=== PATIENT | female | born 1955 | race Caucasian/White ===

== ENCOUNTER → 2016-04-17 | Outpatient (CLI) | payer OTHER ==
--- NOTE | 2016-04-17 15:34 | US ---
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 EXAM MEASUREMENTS: Right Kidney: 11.8 x 5.4 x 5.3 cm cm Left Kidney: 10.5 x 6.5 x 5.0 cm cm Post Void Residual Volume: 20.3 mL TECHNOLOGIST IMPRESSION: wnl Right Kidney: wnl Left Kidney: Mid pole solid mass = 3.4 x 3.4 x 3.3 cm Bladder: wnl Bilateral Jets seen: yes Normal Post Void Residual: yes There is no evidence for hydronephrosis at this point in time. No nephrolithiasis is seen. There is a solid mass left kidney which has been the documented previously on the MRI and CT and was thought t o reflect angiomyolipoma. The urinary bladder is anechoic. Bilateral ureteral jets are seen. IMPRESSION: Solid mass left kidney.
== END | disposition home or self-care (01) ==
LOC: RADUSWWP 14:47
PROVIDERS: ATTEND Internal Medicine Nephrology
DX: N28.89 Other specified disorders of kidney and ureter (principal)
CPT/HCPCS: 76770

== ENCOUNTER → 2016-04-17 | Outpatient (CLI) | payer OTHER ==
--- NOTE | 2016-04-18 15:47 | MR ---
MR abdomen without contrast HISTORY: Adenoma left adrenal gland Multiplanar multisequence imaging through the abdomen correlated to prior MR kidney 28 September 2015, C T abdomen pelvis 04 September 2015 Suspect prior Lucy fundoplication change at the gastroesophageal junction is stable. Left adrenal l esion is stable and small, shows no enhancement. Lesion at the lower pole of the left kidney shows a stable appearance. No retroperitoneal adenopathy. Drop of signal on out of phase imaging within the l iver compatible with fatty infiltration. Small cystic focus associated with the pancreas is stable. IMPRESSION: Noncontrast exam. Stable findings. No significant interval change.
== END | disposition home or self-care (01) ==
LOC: RADMRIMAIN 15:38
PROVIDERS: ATTEND Internal Medicine Nephrology
DX: D35.02 Benign neoplasm of left adrenal gland (principal)
CPT/HCPCS: 74181; 76770

== ENCOUNTER 2016-06-26 20:28 | Emergency (ER) | payer OTHER ==
[2016-06-26 20:40] VITALS: BP 162/77; PULSE 93; RESP 18; TEMP 98
--- NOTE | 2016-06-26 21:20 | ED ---
Skin/Abscess/FB HPI - General Chief complaint: Skin/Abscess/Foreign Body Stated complaint: Nails on feet bleeding Time Seen by Provider: 06/26/16 20:56 Source: patient, RN notes reviewed Mode of arrival: ambulatory Limitations: no limitations - History of Present Illness Initial comments: 61 yo female presents to the ER with cc of bilateral toe nail avulsion. patient states she was wearing rather tight shoes today. Patient states when she did she thought she has a lot of bleeding and the nail she went to wipe in both toenails fell off. patient states that she came here because she noticed bleeding and did not know what she should do. Patient states she then came to the emergency department. Patient states that she is not currently having any other symptoms at this time.Patient denies any recent fever, chills, shortness of breath, chest pain, back pain, abdominal pain, nausea vomiting, numbness or tingling, dysuria or hematuria, constipation or diarrhea, headaches or visual changes, or any other current symptoms. - Related Data Home Medications Medication Instructions Recorded Confirmed Levothyroxine Sodium [Synthroid] 125 mcg PO DAILY 03/02/14 06/26/16 metFORMIN HCL [Glucophage] 500 mg PO BID 03/02/14 06/26/16 Insulin Detemir [Levemir] 20 unit SQ HS 04/08/16 06/26/16 Cholecalciferol [Vitamin D3] 2,000 unit PO DAILY 06/26/16 06/26/16 Cyclobenzaprine [Flexeril] 5 mg PO HS PRN 06/26/16 06/26/16 Pregabalin [Lyrica] 50 mg PO DAILY PRN 06/26/16 06/26/16 glyBURIDE [Diabeta] 5 mg PO AC-BID 06/26/16 06/26/16 traMADol HCL [Ultram] 50 mg PO HS PRN 06/26/16 06/26/16 Allergies Allergy/AdvReac Type Severity Reaction Status Date / Time No Known Allergies Allergy Verified 06/26/16 20:58 Review of Systems ROS Statement: Those systems with pertinent positive or pertinent negative responses have been documented in the HPI. ROS Other: All systems not noted in ROS Statement are negative. Past Medical History Past Medical History: COPD, Diabetes Mellitus, GERD/Reflux, Osteoarthritis (OA) , Pneumonia, Thyroid Disorder Additional Past Medical History / Comment(s): ON BP PILL BUT NOT AWARE OF HTN, "I THINK HE PUT ME ON IT FOR MY KIDNEYS. History of Any Multi-Drug Resistant Organisms: None Reported Past Surgical History: Appendectomy, Hysterectomy, Tonsillectomy Additional Past Surgical History / Comment(s): LYSIS OF ABDOMINAL ADHESIONS. CARPAL TUNNEL RELEASE., manny fundaloplasty Past Anesthesia/Blood Transfusion Reactions: No Reported Reaction Additional Past Anesthesia/Blood Transfusion Reaction / Comment(s): PT HAD SWELLING OF FACE WITH ANESTHESIA DURING HYSTERECTOMY, BUT NO PROBLEMS SINCE. HAS NEVER RECEIVED BLOOD Past Psychological History: No Psychological Hx Reported Additional Psychological History / Comment(s): STATES THIS WAS YEARS AGO, NOT CURRENT. Smoking Status: Former smoker Past Alcohol Use History: None Reported Past Drug Use History: None Reported - Past Family History Father Family Medical History: Congestive Heart Failure (CHF) Mother Family Medical History: No Reported History Additional Family Medical History / Comment(s): SUICIDE General Exam Limitations: no limitations General appearance: alert, in no apparent distress Head exam: Present: atraumatic, normocephalic, normal inspection Respiratory exam: Present: normal lung sounds bilaterally. Absent: respiratory distress, wheezes, rales, rhonchi, stridor Cardiovascular Exam: Present: regular rate, normal rhythm, normal heart sounds. Absent: systolic murmur, diastolic murmur, rubs, gallop, clicks Back exam: Present: normal inspection Neurological exam: Present: alert, oriented X3 Psychiatric exam: Present: normal affect, normal mood Skin exam: Present: warm, dry, intact, normal color, other (patient has bilateral toe nail avulsions to bilateral great toes. There is no bleeding noted.). Absent: rash Course Vital Signs 06/26/16 20:37 Temperature 98.0 F Pulse Rate 93 Respiratory 18 Rate Blood Pressure 162/77 O2 Sat by Pulse 99 Oximetry Medical Decision Making - Medical Decision Making 61-year-old female presents for bilateral toenail avulsions. We did re-insert the toes meals to help with growth. We discussed the toenails may never grow back. We did discuss follow-up with her doctor. We discussed return parameters and care. We discussed all the patient's questions. She stated that she understood the plan. All questions have been answered. She will be discharged. Disposition Clinical Impression: Avulsion of toenail of left foot, Avulsion of toenail of right foot Disposition: HOME SELF-CARE Condition: Stable Instructions: Nail Avulsion (ED) Additional Instructions: Please use medication as discussed. Please follow up with family doctor if symptoms have not improved over the next two days. Please return to the emergency room if your symptoms increase or worsen or for any other concerns. Referrals: Jose Manuel Moon MD [Primary Care Provider] - 1-2 days Time of Disposition: 21:22
== END 2016-06-26 21:36 | disposition home or self-care (01) ==
LOC: EC 20:28
DX: S91.201A Unspecified open wound of right great toe with damage to nail, initial encounter (principal); S91.202A Unspecified open wound of left great toe with damage to nail, initial encounter; E11.9 Type 2 diabetes mellitus without complications; E07.9 Disorder of thyroid, unspecified; Z87.01 Personal history of pneumonia (recurrent); Z87.891 Personal history of nicotine dependence; Z79.4 Long term (current) use of insulin; Z79.84 Long term (current) use of oral hypoglycemic drugs; Z79.899 Other long term (current) drug therapy; X58.XXXA Exposure to other specified factors, initial encounter
CPT/HCPCS: 99282

== ENCOUNTER → 2016-07-16 | Outpatient (CLI) | payer OTHER ==
--- NOTE | 2016-07-16 12:36 | XR ---
EXAMINATION TYPE: XR ankle complete RT DATE OF EXAM: 07/16/2016 COMPARISON: NONE HISTORY: Osteomyelitis twisting injury to ankle TECHNIQUE: Three-view right ankle FINDINGS: Mild diffuse soft tissue swelling is present. The ankle mortise is intact. No acute fractur es are evident. Vascular calcification is present. Plantar and Achilles tendon calcaneal heel spurs a re present. No suspicious erosions to suggest osteomyelitis are evident. IMPRESSION: 1. Mild soft tissue swelling right ankle. 2. No acute osseous abnormality evident.
--- NOTE | 2016-07-16 12:40 | XR ---
EXAMINATION TYPE: XR toes RT DATE OF EXAM: 07/16/2016 COMPARISON: NONE HISTORY: Osteomyelitis infection and great toe, pain TECHNIQUE: 3 view right great toe FINDINGS: There is narrowing of the metatarsophalangeal joint space. Mild hallux valgus deformity is present. No acute fractures evident. No suspicious cortical erosion is evident. There may be some soft tissue abnormality along the medial great toe. IMPRESSION: 1. No suspicious changes radiographically apparent for osteomyelitis. 3 phase bone scan could be per formed if clinically appropriate. 2. Degenerative joint changes first metatarsal phalangeal joint space.
== END | disposition home or self-care (01) ==
LOC: RADXRMAIN 12:07
PROVIDERS: ATTEND Family Medicine
DX: M79.89 Other specified soft tissue disorders (principal); R93.7 Abnormal findings on diagnostic imaging of other parts of musculoskeletal system

== ENCOUNTER 2016-07-22 14:49 | Inpatient (IN) | payer OTHER ==
[2016-07-22 18:45] VITALS: BMI 32.1
[2016-07-22] MEDS ORDERED: IV VANCOMYCIN PER PHARMACY 1 EACH MISC MISCELLANE PRN (19:11)
[2016-07-22] MEDS ORDERED: VANCOMYCIN 1,000 MG in SODIUM CHLORIDE 0.9% 250 ML IVPB STA (19:13)
[2016-07-22] MEDS ORDERED: traMADol 50 MG TAB PO PRN (19:45)
[2016-07-22] MEDS ORDERED: VANCOMYCIN 2,250 MG in SODIUM CHLORIDE 0.9% 500 ML IVPB ONE (20:00)
[2016-07-22 20:20] LABS: Anion Gap 8 mmol/L; Blood Urea Nitrogen 20 mg/dL (7-17); Calcium 9.1 mg/dL (8.4-10.2); Carbon Dioxide 29 mmol/L (22-30); Chloride 103 mmol/L (98-107); Glucose 251 mg/dL (74-99); Non-African American GFR(MDRD) >60 (>60 ml/min/1.73 sqM); Sodium 140 mmol/L (137-145)
[2016-07-22] MEDS: SODIUM CHLORIDE 0.9% 1,000 ML IV SCH (20:38)
[2016-07-22] MEDS: PREGABALIN 50 MG CAP PO PRN (20:38)
[2016-07-22] MEDS: INSULIN DETEMIR 100 UNIT/ML 10 ML VIAL SQ SCH (20:43)
[2016-07-22 20:44] LABS: Glucose,Whole Blood 222 mg/dL (75-99)
[2016-07-22 20:59] LABS: INR 1.9 (<1.1); Prothrombin Time 18.1 sec (9.0-12.0)
[2016-07-22] MEDS ORDERED: CYCLOBENZAPRINE 5 MG TAB PO PRN (21:00)
[2016-07-23] MEDS: ACETAMINOPHEN TAB 500 MG TAB PO PRN ×4 (00:02→22:49)
[2016-07-23] MEDS: LEVOTHYROXINE 125 MCG TAB PO SCH (05:18)
[2016-07-23] MEDS: glipiZIDE 5 MG TAB PO SCH ×2 (07:32→17:50)
[2016-07-23] MEDS: VANCOMYCIN 1,500 MG in SODIUM CHLORIDE 0.9% 250 ML IVPB SCH ×2 (07:32→19:14)
[2016-07-23] MEDS: metFORMIN 500 MG TAB PO SCH ×2 (07:32→17:50)
[2016-07-23 07:36] LABS: Glucose,Whole Blood 150 mg/dL (75-99)
[2016-07-23] MEDS: SODIUM CHLORIDE 0.9% 1,000 ML IV SCH ×2 (09:47→14:54)
[2016-07-23 11:05] LABS: Glucose,Whole Blood 147 mg/dL (75-99)
[2016-07-23] MEDS: CHOLECALCIFEROL 1,000 UNIT TAB PO SCH (11:45)
--- NOTE | 2016-07-23 13:36 | NM ---
EXAMINATION TYPE: NM bone 3 phase DATE OF EXAM: 07/23/2016 COMPARISON: NONE HISTORY: Open sore on the right great toe. Triple phase bone scintigraphy was performed following the injection of27.5 mCi Tc 99m MDP. Immediat e images and 5 hours post injection images acquired. FINDINGS: There is increased flow to the right foot. Pool images demonstrate increased uptake in the distal first metatarsal and great toe. Delayed static images show diffuse increased uptake in the rig ht forefoot, distal first metatarsal and great toe. There is a lesser degree of uptake in the forefoo t on the left. IMPRESSION: I COULD NOT EXCLUDE OSTEOMYELITIS OF THE LEFT FIRST DISTAL METATARSAL AND GREAT TOE.
[2016-07-23 15:52] LABS: Basophils # (A) 0.1 k/uL (0-0.2); Basophils % (A) 1 %; CH 29.3; Eosinophils # (A) 0.2 k/uL (0-0.7); Eosinophils % (A) 3 %; HCT 35.9 % (34.0-46.0); HGB 11.8 gm/dL (11.4-16.0); Luc # (Auto) 0.15; Luc % (Auto) 2; Lymphocytes % (A) 31 %; MCH 29.3 pg (25.0-35.0); MCHC 32.8 g/dL (31.0-37.0); MCV 89.3 fL (80.0-100.0); Mean Platelet Volume 7.8; Monocytes # (A) 0.3 k/uL (0-1.0); Monocytes % (A) 4 %; Neutrophils # (A) 3.7 k/uL (1.3-7.7); Neutrophils % (A) 58 %; RBC 4.03 m/uL (3.80-5.40); RDW 13.3 % (11.5-15.5); WBC 6.3 k/uL (3.8-10.6); WBC (Perox) 6.49
--- NOTE | 2016-07-23 15:55 | P.PN ---
Subjective 61-year-old female being seen and examined. Currently sitting up in bed. Patient states there is decreased swelling in the left foot compared to omission. Patient continues to report having discomfort and pain in the left foot great toe. Patient did have a bone scan done on July 23 could not exclude osteomyelitis of the left first distal metatarsal and great toe. Objective - Vital Signs Vital signs: Vital Signs Temp 98.3 F 07/23/16 07:00 Pulse 80 07/23/16 07:42 Resp 17 07/23/16 07:42 BP 129/67 07/23/16 07:00 Pulse Ox 95 07/23/16 07:00 Intake & Output 07/22/16 07/23/16 07/23/16 18:59 06:59 18:59 Intake Total 750 1315 Balance 750 1315 Weight 87.4 kg Intake: Intake, IV Titration 750 775 Amount Sodium Chloride 0.9% 1, 750 525 000 ml @ 75 mls/hr IV . [id number] [facility] Rx#:[id number] Vancomycin 1,500 mg In 250 Sodium Chloride 0.9% 250 ml @ 125 mls/hr IVPB Q12H [facility] Rx#:[id number] Oral 540 Other: Voiding Method Toilet Toilet # Voids 2 2 - Exam Physical exam 61-year-old female sitting up in bed pleasant cooperative oriented 3 Lungs essentially clear adequate air movement on room air Heart S1-S2 audible and regular denying chest pain no murmur Abdomen soft nontender reports no nausea vomiting Extremities the left great toe callus area noted trace pedal edema bilaterally denies calf tenderness - Labs CBC & Chem 7: 07/22/16 19:47 Labs: Abnormal Lab Results - Last 24 Hours (Table) 07/22/16 07/22/16 07/22/16 Range/Units 19:47 20:31 20:36 PT 18.1 H (9.0-12.0) sec BUN 20 H (7-17) mg/dL Glucose 251 H (74-99) mg/dL POC Glucose (mg/dL) 222 H (75-99) mg/dL 07/23/16 07/23/16 Range/Units 07:32 11:02 PT (9.0-12.0) sec BUN (7-17) mg/dL Glucose (74-99) mg/dL POC Glucose (mg/dL) 150 H 147 H (75-99) mg/dL Assessment and Plan Plan: Impression Pain left distal metatarsal and left great toe present on admission osteomyelitis could not be excluded by a bone scan Obesity BMI 32 Hypothyroid on supplements Type 2 diabetes insulin requiring Vitamin D deficiency Plan Await further recommendations by infectious disease ending Resume home meds as appropriate Monitor blood sugars address as indicated Check a hemoglobin A1c DVT and GI prophylaxis Further recommendations pending The above dictated assessment and findings were discussed with dr castillo . Impression and the plan of care have been dictated as directed. [facility] nurse practitioner acting as a scribe for dr castillo
[2016-07-23 17:17] LABS: Erythrocyte Sedimentation Rate 16 mm/hr (0-20)
[2016-07-23 17:37] LABS: Glucose,Whole Blood 168 mg/dL (75-99)
[2016-07-23] MEDS: WARFARIN 7.5 MG TAB PO SCH (17:50)
[2016-07-23 21:15] LABS: Glucose,Whole Blood 130 mg/dL (75-99)
[2016-07-23] MEDS: INSULIN DETEMIR 100 UNIT/ML 10 ML VIAL SQ SCH (22:12)
[2016-07-23] MEDS: PREGABALIN 50 MG CAP PO PRN (22:50)
[2016-07-23] MEDS: traMADol 50 MG TAB PO PRN (23:23)
[2016-07-24] MEDS: LEVOTHYROXINE 125 MCG TAB PO SCH (05:22)
[2016-07-24 08:08] LABS: Glucose,Whole Blood 104 mg/dL (75-99)
[2016-07-24] MEDS: VANCOMYCIN 1,500 MG in SODIUM CHLORIDE 0.9% 250 ML IVPB SCH (08:42)
[2016-07-24] MEDS: metFORMIN 500 MG TAB PO SCH ×2 (08:42→17:03)
[2016-07-24] MEDS: glipiZIDE 5 MG TAB PO SCH ×2 (08:43→17:02)
[2016-07-24] MEDS: ACETAMINOPHEN TAB 500 MG TAB PO PRN (08:48)
[2016-07-24 08:57] LABS: INR 1.3 (<1.1); Prothrombin Time 12.4 sec (9.0-12.0)
--- NOTE | 2016-07-24 09:00 | HP ---
DATE OF ADMISSION: 07/22/2016 SUBJECTIVE: 61-year-old white female with osteomyelitis of the great toe failing outpatient treatment with Levaquin, at which time she was admitted to the hospital due to worsening redness going up to her foot and ankle and toes spreading all the way up to her ankle. She was admitted. Bone scan has been ordered. IV antibiotics ordered including vancomycin. She has a history of deep venous thrombosis. She has a history of diabetes mellitus, hypertension, hypothyroidism. MEDICATIONS: Please see list. SURGERIES: See list. REVIEW OF SYSTEMS: 14 point review of systems negative except for worsening toe swelling and redness as mentioned above up to the ankle. Fourteen-point review of systems otherwise negative. ENDOCRINE: BMI is over 40. LABS: White count 6.3 sugars in the mid 100s. Sodium 140, potassium 4.0, creatinine 0.6. Calcium 9.1. CARDIOVASCULAR: S1, S2. LUNGS: Transmitted upper airway sounds. GI: Soft. HEMATOLOGIC: Negative Homans. PSYCHIATRIC: Fair mood and affect. NEUROLOGIC: Alert and oriented x3. Ophthalmologic: Pupils equal, round and reactive to light and accommodation. ASSESSMENT: 1. Osteomyelitis of the great toe. 2. Diabetes mellitus. 3. Hypertension. 4. Obesity. 5. Generalized debility. Continue with IV vancomycin, awaiting infectious disease consultation. Await bone scan recommendations. Continue on the vancomycin in the meantime, Dr. Staley's note is not appreciated in the chart at this time. We will continue his antibiotics until his recommendations are given.
[2016-07-24 09:09] LABS: ALT 32 U/L (9-52); AST 16 U/L (14-36); Alkaline Phosphatase 78 U/L (38-126); Anion Gap 8 mmol/L; Blood Urea Nitrogen 18 mg/dL (7-17); Calcium 9.3 mg/dL (8.4-10.2); Carbon Dioxide 28 mmol/L (22-30); Chloride 105 mmol/L (98-107); Glucose 105 mg/dL (74-99); Non-African American GFR(MDRD) >60 (>60 ml/min/1.73 sqM); Potassium 4.3 mmol/L (3.5-5.1); Sodium 141 mmol/L (137-145); Total Bilirubin 0.5 mg/dL (0.2-1.3); Total Protein 7.2 g/dL (6.3-8.2)
--- NOTE | 2016-07-24 09:31 | CONS ---
DATE OF CONSULTATION: 07/23/2016 Reason for consultation is bilateral big toe wound and question of osteomyelitis. HISTORY OF PRESENT ILLNESS: The patient is a 61 female who recently have some tight fitting shoes and when she said that she took those shoes and socks away, both the big toe nails came off. Patient says she did have some problem with the bleeding that she tried to control with some compression and dressing. Subsequently, the patient was evaluated in the ER for the same reason of 06/26/2016. However, she have some x-rays of the foot and ankle area but no significant specific treatment. Subsequently, the patient has been evaluated by her primary care physician in the outpatient setting about a week ago and the patient has been given oral antibiotic but the patient is not sure about the name. She was evaluated in the office yesterday with no significant improvement and the patient has been admitted to the hospital. A bone scan was requested. She was started on vancomycin. I was asked to see the patient for further recommendation regarding antibiotic therapy. Patient has been complaining of some dull pain, especially in the right big toe area. The patient also has a callus on the right foot plantar aspect which the patient took some of the callus off lead to small ulceration. However, the patient denies significant drainage from that site. The patient denies any high-grade fever, rigors or denies any chest pain, shortness of breath, no cough, no abdominal pain, and no diarrhea. REVIEW OF SYSTEMS: CONSTITUTIONAL: Positive for weakness, but no high-grade fever. EYES: No complaint. ENT: No complaint. RESPIRATORY: No complaint. CARDIOVASCULAR: No complaint. GENITOURINARY: No complaint. GASTROINTESTINAL: No complaint. MUSCULOSKELETAL: As per HPI. INTEGUMENTARY: As per HPI. PSYCHOLOGICAL: No complaint. ENDOCRINE: No complaint. NEUROLOGIC: No complaint. PAST MEDICAL HISTORY: Significant for diabetes mellitus, gastroesophageal reflux disease, osteoarthritis in the bone, COPD, hypothyroidism. PAST SURGICAL HISTORY: Appendectomy, hysterectomy, tonsillectomy. SOCIAL HISTORY: Remote history of smoking. No drinking or drug use. FAMILY HISTORY: Father with history of congestive heart failure. Mother of old age. ALLERGIES: No known drug allergies. Medications currently include the patient is on Tylenol, vitamin D3, Flexeril, Glucotrol, Levemir, Synthroid, Glucophage, Lyrica, Ultram, vancomycin and Coumadin. On examination, blood pressure is 177/81 with a pulse of 73, temperature of 98.5, she is 96% on room air. General description is a middle-age female lying in bed, in no distress. No tachypnea or accessory muscle of respiration use. HEENT examination shows no pallor or scleral icterus. Oral mucous membranes dry. NECK: Trachea central. No thyromegaly. LUNGS: Unlabored breathing. Clear to auscultation anteriorly. No wheeze or crackle. HEART: S1, S2. Regular rate and rhythm. ABDOMEN: Soft, no tenderness, no guarding or rigidity. EXTREMITIES: No edema of the feet. Examination of the bilateral feet, the patient's right big toe is slightly more swollen than the left one with the callus on the right foot plantar aspect. She did have a wound on the top of the left big toe as a result of the nail has been taken off, but no significant swelling or drainage was noticed. NEUROLOGICAL: The patient is awake, alert, oriented x3. Mood and affect is normal. LABS: BUN of 20 with a creatinine 0.66, electrolyte has been normal. Bone scan reported positive. The bone scan was personally reviewed with Dr. Garza which did show increased uptake in the right big toe area. DIAGNOSTIC IMPRESSION AND PLAN: Patient with right big toe cellulitis and a question of possible osteomyelitis. The patient's right big toe is more swollen compared to the left one with a finding on the bone scan result of the cellulitis cannot be entirely excluded as in view of the short history. Underlying osteomyelitis not likely but not entirely excluded, more likely from gram-positive skin zarina. Unfortunately, we do not have any culture to determine physiologic agent and the patient has been started on antibiotics without getting any blood cultures. PLAN: 1. Will obtain a CBC and sed rate. 2. Will continue the patient on vancomycin, pharmacy to dose . 3. If the sed rate is elevated, the patient will likely need to get a PICC line for outpatient IV antibiotic therapy. Thank you for this consultation. Will follow this patient along with you. MARIE
[2016-07-24 11:27] LABS: Glucose,Whole Blood 177 mg/dL (75-99)
[2016-07-24] MEDS: SODIUM CHLORIDE 0.9% 1,000 ML IV SCH (12:42)
[2016-07-24] MEDS: CHOLECALCIFEROL 1,000 UNIT TAB PO SCH (12:44)
--- NOTE | 2016-07-24 13:47 | P.PN ---
Subjective 61-year-old female being seen and examined. Patient continues to report having pain involving the right great toe. Patient states that has not improved. Patients being followed by infectious disease.who are recommending a evaluate by [facility] for possible debridement with wound culture to be obtained involving the right great toe. Patient has remained afebrile. Patient complains of having pain in the right big toe area. Callus on the right plantar aspect of the foot. Is no drainage. The areas dry. Patient was seen in Dr. Castillo's office prior to admission and was started on oral antibiotic but the patient is not sure the name and stated did not seem to help. Patient has been started on IV vancomycin this been no significant improvement Objective - Vital Signs Vital signs: Vital Signs Temp 98.3 F 07/24/16 07:00 Pulse 80 07/24/16 08:00 Resp 18 07/24/16 08:00 BP 146/82 07/24/16 07:00 Pulse Ox 96 07/24/16 07:00 Intake & Output 07/23/16 07/24/16 07/24/16 18:59 06:59 18:59 Intake Total 1315 750 Balance 1315 750 Intake: Intake, IV Titration 775 750 Amount Sodium Chloride 0.9% 1, 525 750 000 ml @ 75 mls/hr IV . [id number] [facility] Rx#:[id number] Vancomycin 1,500 mg In 250 Sodium Chloride 0.9% 250 ml @ 125 mls/hr IVPB Q12H [facility] Rx#:[id number] Oral 540 Other: Voiding Method Toilet Toilet Toilet # Voids 2 2 2 - Exam Physical exam 61-year-old female sitting up in bed pleasant cooperative oriented 3 continues to report having pain involving the right foot Lungs essentially clear adequate air movement on room air no cough noted Heart S1-S2 audible and regular denying chest pain no murmur Abdomen soft nontender reports no nausea vomiting reports no frequent stooling no difficulty in urinating Extremities the right great toe swollen callus area noted warm to the touch trace pedal edema bilaterally denies calf tenderness - Labs CBC & Chem 7: 07/23/16 15:26 07/24/16 08:16 Labs: Abnormal Lab Results - Last 24 Hours (Table) 07/23/16 07/23/16 07/24/16 Range/Units 17:30 21:10 07:49 PT (9.0-12.0) sec BUN (7-17) mg/dL Glucose (74-99) mg/dL POC Glucose (mg/dL) 168 H 130 H 104 H (75-99) mg/dL Hemoglobin A1c (4.2-6.1) % 07/24/16 07/24/16 07/24/16 Range/Units 08:16 08:16 08:16 PT 12.4 H (9.0-12.0) sec BUN 18 H (7-17) mg/dL Glucose 105 H (74-99) mg/dL POC Glucose (mg/dL) (75-99) mg/dL Hemoglobin A1c 8.0 H (4.2-6.1) % 07/24/16 Range/Units 11:19 PT (9.0-12.0) sec BUN (7-17) mg/dL Glucose (74-99) mg/dL POC Glucose (mg/dL) 177 H (75-99) mg/dL Hemoglobin A1c (4.2-6.1) % Assessment and Plan Plan: Impression Pain right first present on admission distal metatarsal and right great toe osteomyelitis could not be excluded by a bone scan Obesity BMI 32 Hypothyroid on supplements Type 2 diabetes insulin requiring Vitamin D deficiency Present on admission right big toe cellulitis question of possible osteomyelitis not ruled out Type 2 diabetes insulin requiring hemoglobin A1c 8 uncontrolled Plan Await further recommendations by infectious disease ending Resume home meds as appropriate Monitor blood sugars address as indicated DVT and GI prophylaxis Further recommendations pending The above dictated assessment and findings were discussed with dr castillo . Impression and the plan of care have been dictated as directed. [facility] nurse practitioner acting as a scribe for dr castillo
[2016-07-24] MEDS: WARFARIN 7.5 MG TAB PO SCH (17:02)
[2016-07-24 17:49] LABS: Glucose,Whole Blood 110 mg/dL (75-99)
[2016-07-24 21:02] LABS: Glucose,Whole Blood 184 mg/dL (75-99)
[2016-07-24] MEDS: traMADol 50 MG TAB PO PRN (21:23)
[2016-07-24] MEDS: PREGABALIN 50 MG CAP PO PRN (21:23)
[2016-07-24] MEDS: INSULIN DETEMIR 100 UNIT/ML 10 ML VIAL SQ SCH (21:26)
[2016-07-25] MEDS ORDERED: VANCOMYCIN TROUGH DUE 1 EACH MISC MISCELLANE ONE (06:00)
[2016-07-25] MEDS: SODIUM CHLORIDE 0.9% 1,000 ML IV SCH (06:13)
[2016-07-25] MEDS: LEVOTHYROXINE 125 MCG TAB PO SCH (06:14)
[2016-07-25] MEDS: metFORMIN 500 MG TAB PO SCH (07:48)
[2016-07-25] MEDS: glipiZIDE 5 MG TAB PO SCH (07:48)
[2016-07-25 07:56] VITALS: BP 121/67; RESP 16; TEMP 98.6
[2016-07-25 08:00] VITALS: PULSE 80
[2016-07-25 08:03] LABS: Glucose,Whole Blood 84 mg/dL (75-99)
[2016-07-25 08:14] LABS: INR 1.4 (<1.1)
[2016-07-25 08:15] LABS: Prothrombin Time 13.3 sec (9.0-12.0)
[2016-07-25 08:20] LABS: ALT 29 U/L (9-52); AST 17 U/L (14-36); Alkaline Phosphatase 77 U/L (38-126); Anion Gap 10 mmol/L; Blood Urea Nitrogen 24 mg/dL (7-17); Calcium 9.5 mg/dL (8.4-10.2); Carbon Dioxide 29 mmol/L (22-30); Chloride 102 mmol/L (98-107); Glucose 87 mg/dL (74-99); Non-African American GFR(MDRD) >60 (>60 ml/min/1.73 sqM); Potassium 4.5 mmol/L (3.5-5.1); Sodium 141 mmol/L (137-145); Total Bilirubin 0.5 mg/dL (0.2-1.3); Total Protein 7.2 g/dL (6.3-8.2)
--- NOTE | 2016-07-25 08:56 | P.DS ---
Providers Date of admission: 07/22/16 15:59 Expected date of discharge: 07/25/16 Attending physician: Jose Manuel Castillo Consults: 07/22/16 19:05 Consult Physician Routine Consulting Provider: Kitty Staley Consult Reason/Comments: Osteomyelitis Do you want consulting provider notified?: Already Contacted 07/24/16 13:45 Consult Physician Routine Consulting Provider: Nacho Benton Consult Reason/Comments: deep wound culture Do you want consulting provider notified?: Already Contacted [facility] care [facility]: [facility] Course: 61-year-old female who was a direct admit from Dr. Castillo's office or patient was being seen for increase pain and redness in the right great toe radiating up to the right ankle. Patient had been seen in the office prior had been started on Levaquin with no noted improvement in the symptoms. Patient was recommended to be admitted to the hospital and be treated for failed outpatient treatment for possible osteomyelitis involving the right great toe. Patient was seen by infectious disease. IV antibiotics were initiated. A bone scan was obtained. Could not exclude osteomyelitis of the right first digit distal tarsal right great toe. Patient gives a history of recently wearing some tight fitting shoes. Patient stated that when she took tissue off and pulled the sock away the big toenail came off. Patient stated there was some bleeding she did control with some dressing. Subsequently the patient came into the emergency room for the above- mentioned symptoms on June 26. Patient had some x-rays done at that time and there was no significant treatment at that time. Patient stated that she been followed by her primary care doctor in the outpatient setting seen last about a week ago started on oral antibiotics Levaquin. Patient reevaluated in the office on the day of admission with no significant improvement and patient was recommended to be admitted. Patient complained of dullness an old right big toe. Patient had a callus on the right foot plantar aspect which the patient stated she took off the callus which led to a small ulceration. There was no significant drainage. There was no fever chills. No cough. There was no open area on the right foot. Infectious disease felt the patient could be discharged on an oral antibiotic and would follow patient in the outpatient setting subsequent the patient was discharged home Impression Pain right first present on admission distal metatarsal and right great toe osteomyelitis could not be excluded by a bone scan Obesity BMI 32 Hypothyroid on supplements Vitamin D deficiency Present on admission right big toe cellulitis question of possible osteomyelitis not ruled out Type 2 diabetes insulin requiring hemoglobin A1c 8 uncontrolled History of wearing tightfitting shoes 2 weeks prior resulting in right great toe pain The above dictated assessment and findings were discussed with dr castillo . Impression and the plan of care have been dictated as directed. [facility] nurse practitioner acting as a scribe for dr castillo Plan - Discharge Summary New Discharge Prescriptions: New Cephalexin [Keflex] 500 mg PO Q6HR #56 cap Continue metFORMIN HCL [Glucophage] 500 mg PO BID Levothyroxine Sodium [Synthroid] 125 mcg PO DAILY Insulin Detemir [Levemir] 20 unit SQ HS glyBURIDE [Diabeta] 5 mg PO AC-BID Pregabalin [Lyrica] 50 mg PO HS PRN PRN Reason: Pain Cyclobenzaprine [Flexeril] 5 mg PO HS PRN PRN Reason: Pain traMADol HCL [Ultram] 50 mg PO HS PRN PRN Reason: Pain Cholecalciferol [Vitamin D3] 4,000 unit PO DAILY Warfarin [Coumadin] 7.5 mg PO HS Acetaminophen [Tylenol] 500 mg PO Q6HR PRN PRN Reason: Pain Discontinued Amoxic-Pot Clav 875-125Mg [Augmentin 875-125] 1 tab PO Q12HR Discharge Medication List Levothyroxine Sodium [Synthroid] 125 mcg PO DAILY 03/02/14 [History] metFORMIN HCL [Glucophage] 500 mg PO BID 03/02/14 [History] Insulin Detemir [Levemir] 20 unit SQ HS 04/08/16 [History] Cholecalciferol [Vitamin D3] 4,000 unit PO DAILY 06/26/16 [History] Cyclobenzaprine [Flexeril] 5 mg PO HS PRN 06/26/16 [History] Pregabalin [Lyrica] 50 mg PO HS PRN 06/26/16 [History] glyBURIDE [Diabeta] 5 mg PO AC-BID 06/26/16 [History] traMADol HCL [Ultram] 50 mg PO HS PRN 06/26/16 [History] Acetaminophen [Tylenol] 500 mg PO Q6HR PRN 07/22/16 [History] Warfarin [Coumadin] 7.5 mg PO HS 07/22/16 [History] Cephalexin [Keflex] 500 mg PO Q6HR #56 cap 07/25/16 [Rx] Follow up Appointment(s)/Referral(s): Kitty Staley MD [STAFF PHYSICIAN] - 07/28/16 Jose Manuel Castillo MD [Primary Care Provider] - 07/29/16 Discharge Disposition: HOME SELF-CARE
--- NOTE | 2016-07-25 11:13 | PN ---
DATE OF SERVICE: 07/24/2016 Reason for followup is right big toe wound, a question of osteomyelitis. INTERVAL HISTORY: The patient is afebrile. She has been breathing comfortably. Patient did mention that overall pain and swelling to the right big toe remain to be the same. She did have a callus on the plantar aspect and no significant drainage from that site. Patient denies significant chest pain, shortness of breath, cough, no abdominal pain or diarrhea. On examination, blood pressure 146/82 with a pulse of 80, temperature 98.2. She is 95% on room air. General description is a middle-age female lying in bed in no distress. RESPIRATORY SYSTEM: Unlabored breathing. Clear to auscultation anteriorly. HEART: S1 and S2, regular rate and rhythm. ABDOMEN: Soft, no tenderness. Right big toe slightly swollen compared to left. She did have plantar callus. The ulcer has dried out. No significant drainage. LABS: BUN of 18 with a creatinine 0.67. Sed rate was only 16. DIAGNOSTIC IMPRESSION AND PLAN: Patient with bilateral big toe nail avulsion also with swelling of the right big toe and redness and failing outpatient antibiotic therapy. bone scan positive for an osteomyelitis. The patient did mention no significant improvement with the vancomycin. At this time we do not have any microbiological diagnosis. Will go ahead and hold on the vancomycin therapy. At this point, we will request obtaining a foot and ankle surgery evaluation for debridement of that callus and deep cultures. Also, we will obtain blood cultures tomorrow. Depending upon these cultures to determine discharge antibiotics. Plan of care discussed with the nurse practitioner for the primary team. MARIE
[2016-07-25] MEDS: ACETAMINOPHEN TAB 500 MG TAB PO PRN (12:02)
[2016-07-25] MEDS: CHOLECALCIFEROL 1,000 UNIT TAB PO SCH (12:02)
[2016-07-25 12:23] LABS: C Reactive Protein 11.4 mg/L (<10.0)
--- NOTE | 2016-07-25 16:54 | PN ---
DATE OF SERVICE: 07/25/2016 REASON FOR FOLLOWUP: Right big toe wound with question of cellulitis. INTERVAL HISTORY: The patient is afebrile. The patient did mention that she noticed more drainage from her right big toe area that has been ( ) by the RN. Patient denies any worsening pain to the area. No significant chest pain or cough. Off and on abdominal pain. On examination, blood pressure is 121/67 with a pulse of 80, temperature 98.6. She is 96% on room air. General description is a middle-aged female up in the bed in no distress. RESPIRATORY SYSTEM: Unlabored breathing. Clear to auscultation anteriorly. HEART: S1, S2. Regular rate and rhythm. ABDOMEN: Soft. No tenderness. Right foot is currently dressed up. No obvious drainage on the dressing. LABS: BUN of 24 with a creatinine 0.76. DIAGNOSTIC IMPRESSION AND PLAN: Patient with right big toe swelling with a question of possible underlying cellulitis or osteomyelitis. We did ask for orthopedic evaluation for debridement of the infected callus and deep culture; however, they ( ). Patient will be sent on oral Keflex with outpatient followup. Will follow the culture that was taken today. Continue supportive care.
== END 2016-07-25 13:50 | disposition home or self-care (01) | DRG 638 ==
LOC: 5MS5E 15:59
PROVIDERS: ADMIT Family Medicine; ATTEND Family Medicine
DX: E11.69 Type 2 diabetes mellitus with other specified complication (principal); M86.9 Osteomyelitis, unspecified; E11.621 Type 2 diabetes mellitus with foot ulcer; E11.65 Type 2 diabetes mellitus with hyperglycemia; I10 Essential (primary) hypertension; E03.9 Hypothyroidism, unspecified; E55.9 Vitamin D deficiency, unspecified; E66.9 Obesity, unspecified; J44.9 Chronic obstructive pulmonary disease, unspecified; K21.9 Gastro-esophageal reflux disease without esophagitis; L03.039 Cellulitis of unspecified toe; L97.519 Non-pressure chronic ulcer of other part of right foot with unspecified severity; Z68.32 Body mass index [BMI] 32.0-32.9, adult; Z79.4 Long term (current) use of insulin; Z82.49 Family history of ischemic heart disease and other diseases of the circulatory system; Z86.718 Personal history of other venous thrombosis and embolism; Z87.891 Personal history of nicotine dependence; Z79.899 Other long term (current) drug therapy
CPT/HCPCS: 78315; 80048; 80053; 80202; 83036; 85025; 85610; 85652; 86140; 87070; 87077; 87186; 87205

== ENCOUNTER → 2016-09-26 | Outpatient (CLI) | payer OTHER ==
--- NOTE | 2016-09-26 23:30 | MR ---
EXAMINATION TYPE: MR shoulder LT wo con DATE OF EXAM: 09/26/2016 COMPARISON: NONE HISTORY: Previous MRI on PACS Pain Left Shoulder with Limited ROM TECHNIQUE: Multiplanar, multisequence imaging of the left shoulder is performed without contrast. FINDINGS: The biceps tendon is intact. Subscapularis tendon is intact. Glenoid bev are within normal limits. There is increased signal in the supraspinatus tendon over the humeral head and at the greater tubero sity of the humerus. There is no retraction of the supraspinatus muscle. There is mild spurring at th e AC joint. There is mild subacromial impingement. There is no evidence of a fracture. IMPRESSION: There is evidence of full-thickness tear of the supraspinatus tendon. No retraction. Mild subacromial impingement. 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
== END | disposition home or self-care (01) ==
LOC: RADMRIMAIN 20:48
PROVIDERS: ATTEND Orthopaedic Surgery
DX: M75.122 Complete rotator cuff tear or rupture of left shoulder, not specified as traumatic (principal); M19.012 Primary osteoarthritis, left shoulder

== ENCOUNTER → 2016-11-03 | Outpatient (CLI) | payer OTHER ==
--- NOTE | 2016-11-03 16:39 | XR ---
EXAMINATION TYPE: XR bone survey complete DATE OF EXAM: 11/03/2016 COMPARISON: CT abdomen and pelvis September 04, 2015. Kidney MRI September 28, 2015 HISTORY: Hypothyroidism, monoclonal gammopathy, lower extremity DVT, and benign neoplasm left adrenal gland per order. TECHNIQUE: Frontal and lateral views of entire spine. 2 views of skull. Single view of bilateral femu rs and humeri, and single AP view pelvis are all acquired. Bony calvarium : 2 views of the bony calvarium demonstrate no definitive suspicious focal lytic lesio n. Spine: Two views of the cervical, thoracic and lumbar spines are submitted. Moderate spurring and di sc space narrowing C5-C6 and C6-C7 levels in cervical spine. No definitive focal lytic lesion is iden tified. There is moderate spurring and disc space narrowing in the lower thoracic spine. Straightenin g of thoracic spine as seen on lateral view. There are 5 lumbar-type vertebra. There is grade 1 anter olisthesis of L3 on L4 with mild to moderate disc space narrowing at this level. CXR: Single frontal view chest x-ray shows lungs to appear clear. Cholecystectomy clips are noted. No lytic or expansile rib lesion is clearly seen. PELVIS: Single view of the pelvis demonstrates. No definitive focal lytic lesion. Some lucency from overlying bowel gas is noted. UPPER EXTREMITIES: Two views of the upper extremities. No definitive focal lytic lesion is identified . LOWER EXTREMITIES: 2 views of the lower extremities. No definitive focal lytic lesion is seen. IMPRESSION: No suspicious focal lytic lesions clearly identified.
== END ==
LOC: RADXRMAIN 16:00
PROVIDERS: ATTEND Internal Medicine Hematology & Oncology
DX: I82.5Z9 Chronic embolism and thrombosis of unspecified deep veins of unspecified distal lower extremity (principal); D35.02 Benign neoplasm of left adrenal gland; D47.2 Monoclonal gammopathy; E03.9 Hypothyroidism, unspecified
CPT/HCPCS: 77075

== ENCOUNTER → 2016-11-12 | Outpatient (CLI) | payer OTHER ==
--- NOTE | 2016-11-12 15:35 | US ---
EXAMINATION TYPE: US venous doppler duplex LE BI DATE OF EXAM: 11/12/2016 3:10 PM COMPARISON: Left lower extremity venous ultrasound May 24, 2015 CLINICAL HISTORY: I82.5Z9 DVT in lower ext. Right popliteal fossa pain; prior left leg DVT and is ta nolvia Coumadin SIDE PERFORMED: Bilateral TECHNIQUE: The lower extremity deep venous system is examined utilizing real time linear array sonog aubree with graded compression, doppler sonography and color-flow sonography. VESSELS IMAGED: Common Femoral Vein Deep Femoral Vein Greater Saphenous Vein * Femoral Vein Popliteal Vein Small Saphenous Vein * Proximal Calf Veins (* superficial vessels) Right Leg: Negative for DVT Left Leg: Echogenic valves are noted in one of 2 left upper calf veins, but veins compress normally and left leg is otherwise negative for DVT. Grayscale, color doppler, spectral doppler imaging performed of the deep veins of the lower extremit ies. There is normal flow, compressibility, vascular waveforms. IMPRESSION: No evidence for acute DVT in either lower extremity.
== END | disposition home or self-care (01) ==
LOC: RADUSWWP 14:31
PROVIDERS: ATTEND Internal Medicine Hematology & Oncology
DX: I82.5Z9 Chronic embolism and thrombosis of unspecified deep veins of unspecified distal lower extremity (principal)
CPT/HCPCS: 93970

== ENCOUNTER → 2016-12-03 | Outpatient (CLI) | payer OTHER ==
--- NOTE | 2016-12-03 15:43 | WWHP ---
[facility] - HISTORY AND PHYSICAL DATE OF DICTATION: 12/03/2016 CHIEF COMPLAINT: The patient is here for her routine gynecologic exam and mammogram. HPI: This is a 61-year-old G3, P3 0-0-2 with an LMP of 2006. She is status post vaginal hysterectomy for benign reasons. She is complaining of some vulvar pruritus for about 3 weeks and has noticed slight occasional wetness in the area. She has also been experiencing some occasional left breast tenderness and this seems worse when her cat jumps on her chest. PAST MEDICAL HISTORY: Type 2 diabetes, hypothyroidism, diabetic foot neuropathy, kidney problems, history of DVT in 2015. MEDICATIONS: 1. Ultram 50 mg daily. 2. Vitamin D 2000 units 2 capsules daily. 3. Flexeril 5 mg p.r.n. 4. Levemir 25 units q.h.s. 5. Magnesium supplement daily. 6. Tylenol p.r.n. 7. Metformin 500 mg b.i.d. 8. Lyrica 50 mg daily. 9. Levothyroxine 125 mcg daily. 10.Glyburide 5 mg 2 b.i.d. ALLERGIES: No known drug allergies. PAST SURGICAL HISTORY: Appendectomy, hiatal hernia, left salpingectomy as a teenager, vaginal hysterectomy with possible right salpingectomy 2006, lysis of adhesions, and bilateral carpal tunnel syndrome. Colonoscopy was done in 2014. 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 She thinks she may have also had genital herpes in the past, but has not had any recent outbreaks. She is status post vaginal hysterectomy for benign reasons. SOCIAL HISTORY: She quit smoking in 1998. 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 She denies drug use. She is single and is not seeing anybody at this time and is not sexually active. She is working part-time at [employer] at the [employer]. FAMILY HISTORY: Unchanged from the 11/21/2015 H and P. REVIEW OF SYSTEMS: She has gained about 7 pounds over the last year. She denies respiratory, cardiac or GI problems. PHYSICAL EXAM: Blood pressure 150/80, height 5 feet 4 inches, weight 200 pounds. Temperature 97.6, pulse 76. This is a well-developed, heavyset white female, who is alert and oriented x3, in no acute distress. Skin reveals several patches of non pigmented macular areas including her hands and arms. HEENT: Within normal limits. NECK: Supple without mass or thyromegaly. Chest and lungs: Clear to auscultation. HEART: Regular rate and rhythm. Breasts are without mass or discharge. There is mild left lower breast tenderness without palpable masses. Axillary exam is negative for adenopathy. Back negative for CVA tenderness. ABDOMEN: Soft and there is mild low abdominal tenderness without rebound tenderness. There are no palpable abdominal masses. Pelvic exam external genitalia reveals non pigmented skin around the vaginal opening including bilateral vulva. This extends down to the perineum and perianal areas. These are sharply demarcated areas and this is symmetrical bilaterally. Vagina reveals mild atrophy without lesions. There is no unusual discharge and there is no evidence of prolapse. Bimanual exam is negative for mass or tenderness. Rectovaginal exam is negative for mass or tenderness and is negative for occult blood. Extremities nontender. IMPRESSION: 1. 61-year-old menopausal female with probable vulvar vitiligo. She also has evidence of vitiligo involving the hands and arms as well. 2. She is status post vaginal hysterectomy for benign reasons. 3. Mild low abdominal tenderness without significant pelvic tenderness. 4. Vulvar pruritus without evidence of vaginitis. 5. Left breast tenderness. PLAN: 1. Pap smears have been discontinued. 2. Self breast examination was discussed. 3. Mammogram will be done today. 4. Kenalog 0.1% cream b.i.d. p.r.n. to the vulva for her pruritus. She is instructed to call if this is not improving or if increased vaginal discharge. 5. I have recommended that she see a procurement professional logistics for vitiligo and I have given her the names of 2 local dermatologists for this. 6. I do not feel her abdominal tenderness is gynecologic in nature. She has had a negative pelvic ultrasound less than 1 year ago and she does not seem to have any pelvic tenderness on examination. She will follow up with her primary care doctor for abdominal problems. She states she has also had problems with pain associated with hiatal hernia. 7. She will return in 1 year and p.r.n. MMODL / IJN: [id number] /
--- NOTE | 2016-12-05 09:44 | MM ---
Reason for exam: screening (asymptomatic). Last mammogram was performed 1 year and 10 months ago. History: Excisional biopsy of the left breast. Physical Findings: A clinical breast exam by your physician is recommended on an annual basis and results should be correlated with mammographic findings. MG Screening Mammo w CAD Bilateral CC and MLO view(s) were taken. Prior study comparison: February 08, 2015, bilateral MG screening mammo w CAD. November 07, 2013, bilateral MG diagnostic mammo w CAD LUDA. No significant changes when compared with prior studies. ASSESSMENT: Negative, BI-RAD 1 RECOMMENDATION: Routine screening mammogram of both breasts in 1 year. Manage on a clinical basis with regard to left breast tenderness.
== END ==
LOC: WWCWWP 11:08
PROVIDERS: ATTEND Obstetrics & Gynecology
DX: Z12.31 Encounter for screening mammogram for malignant neoplasm of breast (principal)

== ENCOUNTER → 2017-06-02 | Outpatient (CLI) | payer OTHER ==
--- NOTE | 2017-06-03 03:13 | XR ---
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 Additional prominent degenerative changes througho ut the midfoot including the intermetatarsal and TMT joints. Moderate-sized plantar calcaneal spurrin g small posterior plantar calcaneal spur. No acute fracture, subluxation, or dislocation is seen. IMPRESSION: 1. First MTP joint and extensive midfoot osteoarthrosis. 2. Moderate sized plantar and small posterior calcaneal spurs.
== END | disposition home or self-care (01) ==
LOC: RADXRMAIN 15:45
PROVIDERS: ATTEND Podiatrist Foot & Ankle Surgery
DX: M19.071 Primary osteoarthritis, right ankle and foot (principal); M77.31 Calcaneal spur, right foot; M72.2 Plantar fascial fibromatosis

== ENCOUNTER → 2017-07-06 | Outpatient (CLI) | payer OTHER ==
[2017-07-06 15:52] LABS: Basophils % (A) 1 %; Eosinophils # (A) 0.2 k/uL (0-0.7); Eosinophils % (A) 2 %; HCT 37.5 % (34.0-46.0); HGB 12.2 gm/dL (11.4-16.0); Lymphocytes # (A) 1.7 k/uL (1.0-4.8); Lymphocytes % (A) 22 %; MCH 28.4 pg (25.0-35.0); MCHC 32.6 g/dL (31.0-37.0); MCV 86.9 fL (80.0-100.0); Mean Platelet Volume 8.5; Monocytes # (A) 0.3 k/uL (0-1.0); Monocytes % (A) 4 %; Neutrophils # (A) 5.2 k/uL (1.3-7.7); Neutrophils % (A) 70 %; Platelet Count 202 k/uL (150-450); RBC 4.32 m/uL (3.80-5.40); RDW 13.3 % (11.5-15.5); WBC 7.4 k/uL (3.8-10.6)
[2017-07-06 15:55] LABS: Appearance,Urine Clear (Clear); Bilirubin,Urine Negative (Negative); Blood,Urine Trace (Negative); Color,Urine Light Yellow; Glucose,Urine (UA) 4+ (Negative); Ketones,Urine Negative (Negative); Leukocyte Esterase,Urine Negative (Negative); Mucus,Urine Rare /hpf; Nitrite,Urine Negative (Negative); PH, Urine 5.5 (5.0-8.0); Protein,Urine 1+ (Negative); RBC,Urine 1 /hpf (0-5); Specific Gravity,Urine 1.012 (1.001-1.035); Squamous Epithelial Cell,Urine 1 /hpf (0-4); Urobilinogen,Urine <2.0 mg/dL (<2.0); WBC,Urine 1 /hpf (0-5)
[2017-07-06 16:11] LABS: Anion Gap 13 mmol/L; Blood Urea Nitrogen 20 mg/dL (7-17); Calcium 9.3 mg/dL (8.4-10.2); Carbon Dioxide 27 mmol/L (22-30); Chloride 101 mmol/L (98-107); Glucose 299 mg/dL (74-99); Magnesium 1.5 mg/dL (1.6-2.3); Phosphorus 3.8 mg/dL (2.5-4.5); Potassium 4.8 mmol/L (3.5-5.1); Sodium 141 mmol/L (137-145); Uric Acid 5.1 mg/dL (3.7-7.4)
[2017-07-07 01:41] LABS: Iron Saturation 19.02 (12.00-45.00)
[2017-07-07 01:49] LABS: Vitamin D 25 Hydroxy 27.4 ng/mL (30.0-100.0)
[2017-07-07 02:16] LABS: Hemoglobin A1C 9.8 % (4.0-6.0)
[2017-07-07 02:32] LABS: Parathyroid Hormone Intact 46.1 pg/mL (14.0-72.0)
== END | disposition home or self-care (01) ==
LOC: LABWHC1 15:23
PROVIDERS: ATTEND Nurse Practitioner Family
DX: N39.0 Urinary tract infection, site not specified (principal); D35.02 Benign neoplasm of left adrenal gland; E11.49 Type 2 diabetes mellitus with other diabetic neurological complication; E83.39 Other disorders of phosphorus metabolism; M10.9 Gout, unspecified; D50.9 Iron deficiency anemia, unspecified
CPT/HCPCS: 36415; 80048; 81001; 82306; 82728; 83036; 83540; 83550; 83735; 83970; 84100; 84550; 85025

== ENCOUNTER → 2017-07-15 | Outpatient (CLI) | payer OTHER ==
--- NOTE | 2017-07-15 10:08 | US ---
EXAMINATION TYPE: US venous doppler duplex LE DATE OF EXAM: 07/15/2017 9:42 AM COMPARISON: US 2017 CLINICAL HISTORY: M79.662 pain left lower limb. History of left leg DVT, left calf swelling SIDE PERFORMED: Left TECHNIQUE: The lower extremity deep venous system is examined utilizing real time linear array sonog aubree with graded compression, doppler sonography and color-flow sonography. VESSELS IMAGED: External Iliac Vein (EIV) Common Femoral Vein Deep Femoral Vein Greater Saphenous Vein * Femoral Vein Popliteal Vein Small Saphenous Vein * Proximal Calf Veins (* superficial vessels) Left Leg: As seen on previous ultrasound echogenic valves are noted in distal popliteal vein, but ve ins appear to compress normally with good color flow and left leg otherwise appears negative for DVT. IMPRESSION: 1. Left lower extremity venous ultrasound negative for deep venous thrombosis.
== END | disposition home or self-care (01) ==
LOC: RADUSWWP 09:02
PROVIDERS: ATTEND Family Medicine
DX: M79.662 Pain in left lower leg (principal)

== ENCOUNTER 2017-09-12 13:23 | Emergency (ER) | payer OTHER ==
--- NOTE | 2017-09-12 14:21 | ED ---
General Adult HPI - General Chief complaint: Recheck/Abnormal Lab/Rx Stated complaint: Abd pain Time Seen by Provider: 09/12/17 14:03 Source: patient Mode of arrival: ambulatory Limitations: no limitations - History of Present Illness Initial comments: Patient is a 62-year-old female presenting for symptoms for 1 month. She states that she is seen her PCP and was diagnosed with strep throat infection, bilateral ear infection and she is also been told that she has a hiatal hernia. She complains of choking on food for over a year and she saw her PCP on for cough and was given steroids antibiotics. She also states that she has had low-grade fever for the last month but does not know how high it was because she has no working tomorrow. She also complains that her "lips felt on fire" and came in because she was "burning up". She admits to diffuse myalgias and some abdominal pressure and feels like there is a water balloon inside her abdomen. She denies any chest pain, shortness breath. - Related Data Home Medications Medication Instructions Recorded Confirmed Levothyroxine Sodium [Synthroid] 125 mcg PO DAILY 03/02/14 12/24/16 metFORMIN HCL [Glucophage] 500 mg PO BID 03/02/14 12/24/16 Insulin Detemir [Levemir] 25 unit SQ HS 04/08/16 12/24/16 Cholecalciferol [Vitamin D3] 4,000 unit PO DAILY 06/26/16 12/24/16 Cyclobenzaprine [Flexeril] 5 mg PO HS PRN 06/26/16 12/24/16 Pregabalin [Lyrica] 50 mg PO HS PRN 06/26/16 12/24/16 glyBURIDE [Diabeta] 5 mg PO AC-BID 06/26/16 12/24/16 traMADol HCL [Ultram] 50 mg PO HS PRN 06/26/16 12/24/16 Acetaminophen [Tylenol] 500 mg PO Q6HR PRN 07/22/16 12/24/16 Cholecalciferol (Vitamin D3) 4,000 unit PO DAILY 12/24/16 12/24/16 [Vitamin D3] Magnesium Oxide [Mag-Ox] 400 mg PO DAILY 12/24/16 12/24/16 Previous Rx's Medication Instructions Recorded Famotidine [Pepcid] 20 mg PO BID 30 Days #60 tablet 09/12/17 Allergies Allergy/AdvReac Type Severity Reaction Status Date / Time No Known Allergies Allergy Verified 09/12/17 13:33 Review of Systems ROS Statement: Those systems with pertinent positive or pertinent negative responses have been documented in the HPI. Constitutional: Negative for chills, positive for fatigue and fever. HENT: Negative for congestion. Positive for throat pain, bilateral ear pain Respiratory: Negative for chest tightness, shortness of breath and wheezing. Positive for cough Cardiovascular: Negative for chest pain and palpitations. Gastrointestinal: Negative for abdominal pain. Negative for abdominal distention , diarrhea, nausea and vomiting. Genitourinary: Negative for dysuria. Musculoskeletal: Negative for back pain, neck pain and neck stiffness. Positive for myalgias Skin: Negative for color change. Neurological: Negative for dizziness, speech difficulty, weakness and light- headedness. Psychiatric/Behavioral: Negative for agitation and confusion. Negative for anxiety ROS Other: All systems not noted in ROS Statement are negative. Past Medical History Past Medical History: COPD, Diabetes Mellitus, Deep Vein Thrombosis (DVT), GERD/ Reflux, Hyperlipidemia, Hypertension, Osteoarthritis (OA), Pneumonia, Renal Disease, Thyroid Disorder Additional Past Medical History / Comment(s): ON BP PILL BUT NOT AWARE OF HTN, "I THINK HE PUT ME ON IT FOR MY KIDNEYS. History of Any Multi-Drug Resistant Organisms: None Reported Past Surgical History: Appendectomy, Hysterectomy, Tonsillectomy Additional Past Surgical History / Comment(s): LYSIS OF ABDOMINAL ADHESIONS. CARPAL TUNNEL RELEASE., manny fundaloplasty Past Anesthesia/Blood Transfusion Reactions: No Reported Reaction Additional Past Anesthesia/Blood Transfusion Reaction / Comment(s): PT HAD SWELLING OF FACE WITH ANESTHESIA DURING HYSTERECTOMY, BUT NO PROBLEMS SINCE. HAS NEVER RECEIVED BLOOD Past Psychological History: No Psychological Hx Reported Smoking Status: Former smoker Past Alcohol Use History: None Reported Past Drug Use History: None Reported - Past Family History Father Family Medical History: Congestive Heart Failure (CHF) Mother Family Medical History: Coronary Artery Disease (CAD), Diabetes Mellitus, Osteoarthritis (OA) Additional Family Medical History / Comment(s): Mother committed suicide in 1973 General Exam - General Exam Comments Initial Comments: Constitutional: Pt is oriented to person, place, and time. Pt appears well- developed and well-nourished. No distress. HENT: No erythema or edema of the oropharynx. Bilateral tympanic membranes not erythematous with no effusion Head: Normocephalic and atraumatic. Eyes: EOM are normal. Neck: Normal range of motion. Neck supple. Cardiovascular: Normal rate, regular rhythm, S1 normal, S2 normal and normal heart sounds. Exam reveals no gallop and no friction rub. No murmur heard. Pulmonary/Chest: Effort normal and breath sounds normal. No tachypnea and no bradypnea. No respiratory distress. No wheezes or rales noted. Abdominal: Soft. Bowel sounds are normal. Pt exhibits no shifting dullness, no distension, no pulsatile liver, no fluid wave, no abdominal bruit and no ascites. There is no tenderness. There is no rigidity, no rebound, no guarding, no tenderness at McBurney's point and negative Thomas's sign. Musculoskeletal: Normal range of motion. Neurological: Pt is alert and oriented to person, place, and time. No cranial nerve deficit. Skin: Skin is warm and dry. No rash noted. Pt is not diaphoretic. No erythema. No pallor. Psychiatric: Pt has a normal mood and affect. Pt behavior is normal. Thought content normal. Limitations: no limitations Course Vital Signs 09/12/17 09/12/17 13:28 17:10 Temperature 98.4 F 98.1 F Pulse Rate 77 75 Respiratory 20 16 Rate Blood Pressure 126/81 122/78 O2 Sat by Pulse 96 98 Oximetry EKG Findings - EKG Comments: EKG Findings:: EKG shows normal sinus rhythm 68 bpm, IL interval 208 consistent with a first-degree heart block. QRS duration 76, QTC 406. There are no significant ST depressions or elevations. Medical Decision Making - Medical Decision Making Auditory studies showed that there is no significant leukocytosis and electrolytes were relatively within normal limits with exception of potassium which is measured at 5.6. However, EKG showed no significant findings consistent with hyperkalemia. Urinalysis was also negative for infection and chest x-ray showed no significant infiltrates or emergent process.It was explained that while there does not appear to be an emergent process, the etiology of the symptoms are still unclear but possibly related to dyspepsia and may need further workup as an outpatient if symptoms continue. This is determined because of the patient's symptoms such as bloating and burning in her throat. Therefore she was given a prescription for Pepcid and advised to follow-up with her doctor who she said she would rate the patient was advised to return to emergency department if the symptoms worsened or chest pain started. Patient was agreeable plan. - Lab Data Result diagrams: 09/12/17 14:00 09/12/17 14:00 Lab Results 09/12/17 09/12/17 09/12/17 Range/Units 14:00 14:00 14:00 WBC 7.8 (3.8-10.6) k/uL RBC 4.50 (3.80-5.40) m/uL Hgb 12.7 (11.4-16.0) gm/dL Hct 39.9 (34.0-46.0) % MCV 88.6 (80.0-100.0) fL MCH 28.1 (25.0-35.0) pg MCHC 31.8 (31.0-37.0) g/dL RDW 13.3 (11.5-15.5) % Plt Count 211 (150-450) k/uL Neutrophils % 65 % Lymphocytes % 23 % Monocytes % 5 % Eosinophils % 4 % Basophils % 1 % Neutrophils # 5.1 (1.3-7.7) k/uL Lymphocytes # 1.8 (1.0-4.8) k/uL Monocytes # 0.4 (0-1.0) k/uL Eosinophils # 0.3 (0-0.7) k/uL Basophils # 0.1 (0-0.2) k/uL PT 9.7 (9.0-12.0) sec INR 1.0 (<1.2) APTT 21.2 L (22.0-30.0) sec Sodium 139 (137-145) mmol/L Potassium 5.6 H (3.5-5.1) mmol/L Chloride 98 (98-107) mmol/L Carbon Dioxide 30 (22-30) mmol/L Anion Gap 11 mmol/L BUN 30 H (7-17) mg/dL Creatinine 0.90 (0.52-1.04) mg/dL Est GFR (CKD-EPI)AfAm 79 (>60 ml/min/1.73 sqM) Est GFR (CKD-EPI)NonAf 69 (>60 ml/min/1.73 sqM) Glucose 214 H (74-99) mg/dL Calcium 9.6 (8.4-10.2) mg/dL Magnesium 2.2 (1.6-2.3) mg/dL Total Bilirubin 0.6 (0.2-1.3) mg/dL AST 18 (14-36) U/L ALT 32 (9-52) U/L Alkaline Phosphatase 98 (38-126) U/L Troponin I (0.000-0.034) ng/mL Total Protein 7.5 (6.3-8.2) g/dL Albumin 4.2 (3.5-5.0) g/dL Lipase 362 H (23-300) U/L Urine Color Urine Appearance (Clear) Urine pH (5.0-8.0) Ur Specific [place] (1.001-1.035) Urine Protein (Negative) Urine Glucose (UA) (Negative) Urine Ketones (Negative) Urine Blood (Negative) Urine Nitrite (Negative) Urine Bilirubin (Negative) Urine Urobilinogen (<2.0) mg/dL Ur Leukocyte Esterase (Negative) Urine RBC (0-5) /hpf Urine WBC (0-5) /hpf Ur Squamous Epith Cells (0-4) /hpf Urine Mucus (None) /hpf 09/12/17 09/12/17 Range/Units 14:00 14:00 WBC (3.8-10.6) k/uL RBC (3.80-5.40) m/uL Hgb (11.4-16.0) gm/dL Hct (34.0-46.0) % MCV (80.0-100.0) fL MCH (25.0-35.0) pg MCHC (31.0-37.0) g/dL RDW (11.5-15.5) % Plt Count (150-450) k/uL Neutrophils % % Lymphocytes % % Monocytes % % Eosinophils % % Basophils % % Neutrophils # (1.3-7.7) k/uL Lymphocytes # (1.0-4.8) k/uL Monocytes # (0-1.0) k/uL Eosinophils # (0-0.7) k/uL Basophils # (0-0.2) k/uL PT (9.0-12.0) sec INR (<1.2) APTT (22.0-30.0) sec Sodium (137-145) mmol/L Potassium (3.5-5.1) mmol/L Chloride (98-107) mmol/L Carbon Dioxide (22-30) mmol/L Anion Gap mmol/L BUN (7-17) mg/dL Creatinine (0.52-1.04) mg/dL Est GFR (CKD-EPI)AfAm (>60 ml/min/1.73 sqM) Est GFR (CKD-EPI)NonAf (>60 ml/min/1.73 sqM) Glucose (74-99) mg/dL Calcium (8.4-10.2) mg/dL Magnesium (1.6-2.3) mg/dL Total Bilirubin (0.2-1.3) mg/dL AST (14-36) U/L ALT (9-52) U/L Alkaline Phosphatase (38-126) U/L Troponin I <0.012 (0.000-0.034) ng/mL Total Protein (6.3-8.2) g/dL Albumin (3.5-5.0) g/dL Lipase (23-300) U/L Urine Color Yellow Urine Appearance Clear (Clear) Urine pH 8.0 (5.0-8.0) Ur Specific [place] 1.016 (1.001-1.035) Urine Protein 1+ H (Negative) Urine Glucose (UA) Trace H (Negative) Urine Ketones Negative (Negative) Urine Blood Negative (Negative) Urine Nitrite Negative (Negative) Urine Bilirubin Negative (Negative) Urine Urobilinogen <2.0 (<2.0) mg/dL Ur Leukocyte Esterase Trace H (Negative) Urine RBC 1 (0-5) /hpf Urine WBC 2 (0-5) /hpf Ur Squamous Epith Cells 1 (0-4) /hpf Urine Mucus Rare H (None) /hpf Disposition Clinical Impression: Abdominal bloating, Hyperkalemia Disposition: HOME SELF-CARE Condition: Good Instructions: Indigestion (ED) Prescriptions: Famotidine [Pepcid] 20 mg PO BID 30 Days #60 tablet Is patient prescribed a controlled substance at d/c from ED?: No Referrals: Jose Manuel Moon MD [Primary Care Provider] - 1-2 days Time of Disposition: 16:42
[2017-09-12] MEDS ORDERED: SUCRALFATE 1 GM TAB PO STA (14:22)
[2017-09-12 15:10] LABS: Appearance,Urine Clear (Clear); Bilirubin,Urine Negative (Negative); Blood,Urine Negative (Negative); Color,Urine Yellow; Glucose,Urine (UA) Trace (Negative); Ketones,Urine Negative (Negative); Leukocyte Esterase,Urine Trace (Negative); Mucus,Urine Rare /hpf; Nitrite,Urine Negative (Negative); Protein,Urine 1+ (Negative); RBC,Urine 1 /hpf (0-5); Specific Gravity,Urine 1.016 (1.001-1.035); Squamous Epithelial Cell,Urine 1 /hpf (0-4); Urobilinogen,Urine <2.0 mg/dL (<2.0); WBC,Urine 2 /hpf (0-5)
[2017-09-12 15:13] LABS: Basophils # (A) 0.1 k/uL (0-0.2); Basophils % (A) 1 %; Eosinophils # (A) 0.3 k/uL (0-0.7); Eosinophils % (A) 4 %; HCT 39.9 % (34.0-46.0); HGB 12.7 gm/dL (11.4-16.0); Lymphocytes # (A) 1.8 k/uL (1.0-4.8); Lymphocytes % (A) 23 %; MCH 28.1 pg (25.0-35.0); MCHC 31.8 g/dL (31.0-37.0); MCV 88.6 fL (80.0-100.0); Mean Platelet Volume 7.7; Monocytes # (A) 0.4 k/uL (0-1.0); Monocytes % (A) 5 %; Neutrophils # (A) 5.1 k/uL (1.3-7.7); Neutrophils % (A) 65 %; Platelet Count 211 k/uL (150-450); RDW 13.3 % (11.5-15.5); WBC 7.8 k/uL (3.8-10.6)
[2017-09-12 15:20] LABS: Albumin 4.2 g/dL (3.5-5.0); Calcium 9.6 mg/dL (8.4-10.2); Magnesium 2.2 mg/dL (1.6-2.3); Potassium 5.6 mmol/L (3.5-5.1); Total Bilirubin 0.6 mg/dL (0.2-1.3); Total Protein 7.5 g/dL (6.3-8.2)
[2017-09-12 15:24] LABS: Partial Thromboplastin Time 21.2 sec (22.0-30.0); Prothrombin Time 9.7 sec (9.0-12.0)
--- NOTE | 2017-09-12 15:29 | XR ---
EXAMINATION TYPE: XR chest 2V DATE OF EXAM: 09/12/2017 COMPARISON: 02/19/2015 HISTORY: Weakness TECHNIQUE: Frontal and lateral views of the chest are obtained. FINDINGS: There is no focal air space opacity, pleural effusion, or pneumothorax seen. The cardiac silhouette size is enlarged. Cholecystectomy clips are noted within the right upper quadrant. The os seous structures are intact. Mild multilevel degenerative changes of the thoracic spine are seen. Mil d acromioclavicular arthropathy is also noted. IMPRESSION: No acute cardiopulmonary process.
[2017-09-12 17:11] VITALS: BP 122/78; PULSE 75; RESP 16; TEMP 98.1
== END 2017-09-12 17:10 | disposition home or self-care (01) ==
LOC: EC 13:23
DX: E87.5 Hyperkalemia (principal); R14.0 Abdominal distension (gaseous); E11.9 Type 2 diabetes mellitus without complications; E07.9 Disorder of thyroid, unspecified; K21.9 Gastro-esophageal reflux disease without esophagitis; K44.9 Diaphragmatic hernia without obstruction or gangrene; Z90.49 Acquired absence of other specified parts of digestive tract; Z90.710 Acquired absence of both cervix and uterus; Z87.891 Personal history of nicotine dependence; Z79.4 Long term (current) use of insulin; Z79.899 Other long term (current) drug therapy
CPT/HCPCS: 36415; 71046; 80053; 81001; 83690; 83735; 84484; 85025; 85610; 85730; 93005; 99284

== ENCOUNTER 2017-10-05 07:01 | Day surgery (SDC) | payer OTHER ==
[2017-10-01 10:41] VITALS: BMI 33.3
[~2017-10-05 07:01] MED LIST: LACTATED RINGERS 1,000 ML IV SCH
[2017-10-05 07:30] VITALS: TEMP 98.1
[2017-10-05] MEDS ORDERED: LIDOCAINE 1% 20 ML VIAL (10MG/ML) FOR IV START INTRADERMA ONE (07:44)
[2017-10-05 07:49] LABS: Glucose,Whole Blood 145 mg/dL (75-99)
[2017-10-05] MEDS ORDERED: LIDOCAINE 1% INJ 10MG/ML (20 ML MDV) ONE (07:55)
[2017-10-05] MEDS ORDERED: PROPOFOL 10 MG/ML 20 ML VIAL IV ONE (07:55)
[2017-10-05 08:28] LABS: Glucose,Whole Blood 157 mg/dL (75-99)
--- NOTE | 2017-10-05 08:41 | P.PCN ---
Date of Procedure: 10/05/17 Procedure(s) Performed: Procedure: Esophagogastroduodenoscopy and biopsy. Preoperative diagnosis: Dysphagia and choking sensation. Postoperative diagnosis: 1. S/P Lucy fundoplication with no obvious strictures or resistance to the advancement of the endoscope. 2. Mild gastritis and duodenitis. 3. Biopsies obtained from the duodenum, antrum and esophagus. Preparation and sedation: Was provided by anesthesia. Brief clinical history: The patient is a 62-year-old female who had Lucy fundoplication 3 or 4 years ago for hiatal hernia. She has done well after that on no reflux medications or symptoms. She started to complain over the last 3-4 months of difficulty swallowing and gagging and choking sensation when she eats. There are no other alarm symptoms or anemia. The patient is referred for this evaluation to assess for the etiology of her symptoms. Procedure: With the patient on her left lateral decubitus position and after informed consent and adequate sedation, I passed the Olympus GI F1 60 video upper endoscope through the cricopharyngeus down the esophagus. The esophagus appeared healthy with no obvious esophagitis or any strictures or resistance to the advancement of the endoscope. The gastroesophageal junction was around 40 cm from the incisors. I advanced endoscope in the stomach which was insufflated with air and inspected in detail including the retroflex view in the cardia. The prior Lucy fundoplication surgery was noted in place. There was some mottling and erythema in the antrum but no ulcers or erosions. Pyloric channel did not show any ulcers. Duodenal bulb, post bulbar area and descending duodenum showed some mottling and erythema as well but no ulcers or erosions. I obtained biopsies from the duodenum, antrum and esophagus then the endoscope was withdrawn. The patient tolerated the procedure well. Plan: The patient was reassured. Will await biopsy results. If she remains symptomatic, I am recommending a modified barium swallow. She will follow-up with you as planned.
[2017-10-05 08:47] VITALS: BP 133/82; PULSE 71; RESP 18
== END 2017-10-05 09:34 | disposition home or self-care (01) ==
LOC: ORWHC2ENDO 07:01
DX: K29.50 Unspecified chronic gastritis without bleeding (principal); K29.80 Duodenitis without bleeding; K20.9 Esophagitis, unspecified; R13.10 Dysphagia, unspecified
CPT/HCPCS: 88305; 43239; J2001; J2704

== ENCOUNTER → 2017-10-08 | Outpatient (CLI) | payer OTHER ==
--- NOTE | 2017-10-08 16:59 | XR ---
EXAMINATION TYPE: XR chest 2V DATE OF EXAM: 10/08/2017 COMPARISON: Prior chest x-ray 09/12/2017 HISTORY: Chronic cough TECHNIQUE: Frontal and lateral views of the chest are obtained. FINDINGS: There is no focal air space opacity, pleural effusion, or pneumothorax seen. The cardiac silhouette size is stable, enlarged. The osseous structures are intact. Surgical clips are present in the right upper quadrant. IMPRESSION: No acute cardiopulmonary process. Cardiomegaly.
== END | disposition home or self-care (01) ==
LOC: RADXRMAIN 15:14
PROVIDERS: ATTEND Family Medicine
DX: I51.7 Cardiomegaly (principal)
CPT/HCPCS: 71046

== ENCOUNTER 2017-10-30 12:29 | Observation (INO) | payer OTHER ==
[2017-10-30] MEDS ORDERED: SODIUM CHLORIDE 0.9% 1,000 ML IV STA (13:05)
[2017-10-30 13:41] LABS: Basophils # (A) 0.1 k/uL (0-0.2); Basophils % (A) 1 %; Eosinophils # (A) 0.2 k/uL (0-0.7); Eosinophils % (A) 2 %; HCT 37.3 % (34.0-46.0); Lymphocytes # (A) 2.1 k/uL (1.0-4.8); Lymphocytes % (A) 24 %; MCH 28.1 pg (25.0-35.0); MCHC 32.1 g/dL (31.0-37.0); MCV 87.4 fL (80.0-100.0); Mean Platelet Volume 8.6; Monocytes # (A) 0.4 k/uL (0-1.0); Monocytes % (A) 4 %; Neutrophils # (A) 5.9 k/uL (1.3-7.7); Neutrophils % (A) 68 %; Platelet Count 218 k/uL (150-450); RBC 4.26 m/uL (3.80-5.40); RDW 13.7 % (11.5-15.5); WBC 8.7 k/uL (3.8-10.6)
[2017-10-30 13:52] LABS: Appearance,Urine Clear (Clear); Bacteria,Urine Rare /hpf; Bilirubin,Urine Negative (Negative); Blood,Urine Negative (Negative); Color,Urine Yellow; Glucose,Urine (UA) 1+ (Negative); Ketones,Urine Negative (Negative); Leukocyte Esterase,Urine Small (Negative); Mucus,Urine Rare /hpf; Nitrite,Urine Negative (Negative); PH, Urine 5.5 (5.0-8.0); Protein,Urine Trace (Negative); Specific Gravity,Urine 1.016 (1.001-1.035); Squamous Epithelial Cell,Urine 2 /hpf (0-4); Urobilinogen,Urine <2.0 mg/dL (<2.0); WBC,Urine 2 /hpf (0-5)
[2017-10-30 13:54] LABS: Calcium 9.2 mg/dL (8.4-10.2); Phosphorus 4.5 mg/dL (2.5-4.5); Potassium 4.5 mmol/L (3.5-5.1); Total Bilirubin 0.6 mg/dL (0.2-1.3); Total Protein 7.2 g/dL (6.3-8.2)
--- NOTE | 2017-10-30 14:00 | CT ---
EXAMINATION TYPE: CT brain wo con DATE OF EXAM: 10/30/2017 COMPARISON: 06/29/2008 HISTORY: memory loss CT DLP: 1036 mGycm Automated exposure control for dose reduction was used. FINDINGS: Ventricular system is midline. No acute intracranial hemorrhage or mass effect. No midline shift. Calvarium intact. There is faint low-attenuation within the periventricular white matter which is non specific but most typical remote microvascular ischemia. Changes of chronic mastoiditis noted. Intrac ranial atherosclerotic changes noted. IMPRESSION: DEGENERATIVE AND NONSPECIFIC WHITE MATTER CHANGES MOST TYPICAL OF REMOTE MICROVASCULAR ISCHEMIA. CHRONIC MASTOIDITIS.
[2017-10-30 14:04] LABS: Partial Thromboplastin Time 21.7 sec (22.0-30.0)
[2017-10-30 14:13] LABS: Creatine Kinase 37 U/L (30-135)
[2017-10-30 14:25] LABS: Creatine Kinase MB 0.9 ng/mL (0.0-2.4); Troponin I <0.012 ng/mL (0.000-0.034)
[2017-10-30] MEDS ORDERED: ASPIRIN 325 MG TAB PO STA (14:48)
--- NOTE | 2017-10-30 14:48 | ED ---
General Adult HPI - General Chief complaint: Dizziness Stated complaint: Sent by PCP off balance Time Seen by Provider: 10/30/17 13:05 Source: patient, RN notes reviewed, old records reviewed Mode of arrival: ambulatory - History of Present Illness Initial comments: This is a 62-year-old female the ER for evaluation. Patient's coming in for multiple complaints, recurrent episodes of diarrhea diaphoresis weakness shortness of breath. Patient complains of forgetfulness loss of vision episodes of near syncope. No recent change in medication. No other complaints - Related Data Home Medications Medication Instructions Recorded Confirmed Levothyroxine Sodium [Synthroid] 125 mcg PO DAILY 03/02/14 10/01/17 metFORMIN HCL [Glucophage] 250 mg PO BID 03/02/14 10/05/17 Cholecalciferol [Vitamin D3] 2,000 unit PO DAILY 06/26/16 10/01/17 traMADol HCL [Ultram] 50 mg PO HS PRN 06/26/16 10/05/17 Magnesium Oxide [Mag-Ox] 400 mg PO DAILY 12/24/16 10/01/17 Aspirin EC [Ecotrin Low Dose] 81 mg PO DAILY 10/01/17 10/01/17 Hydrochlorothiazide [Hydrodiuril] 25 mg PO DAILY 10/01/17 10/01/17 Lisinopril-Hctz 10-12.5 mg 1 each PO DAILY 10/01/17 10/01/17 [Zestoretic 10-12.5] Pregabalin [Lyrica] 75 mg PO DAILY 10/01/17 10/01/17 glipiZIDE [Glucotrol] 10 mg PO AC-BID 10/01/17 10/05/17 Previous Rx's Medication Instructions Recorded Famotidine [Pepcid] 20 mg PO BID 30 Days #60 tablet 09/12/17 Allergies Allergy/AdvReac Type Severity Reaction Status Date / Time No Known Allergies Allergy Verified 10/30/17 12:58 Review of Systems ROS Statement: Those systems with pertinent positive or pertinent negative responses have been documented in the HPI. ROS Other: All systems not noted in ROS Statement are negative. Past Medical History Past Medical History: COPD, Diabetes Mellitus, Deep Vein Thrombosis (DVT), GERD/ Reflux, Hyperlipidemia, Hypertension, Osteoarthritis (OA), Pneumonia, Renal Disease, Thyroid Disorder Additional Past Medical History / Comment(s): ON BP PILL BUT NOT AWARE OF HTN, "I THINK HE PUT ME ON IT FOR MY KIDNEYS. HAS BEEN HAVING NON PRODUCTIVE COUGH OFF AND ON FOR ABOUT 4 MONTHS History of Any Multi-Drug Resistant Organisms: MRSA Date of last positivie culture/infection: 2016 MDRO Source:: TOE Past Surgical History: Appendectomy, Hernia Repair, Hysterectomy, Orthopedic Surgery, Tonsillectomy Additional Past Surgical History / Comment(s): LYSIS OF ABDOMINAL ADHESIONS. BILAT CTR., syed fundaloplasty, COLONOSCOPY, EGD Past Anesthesia/Blood Transfusion Reactions: No Reported Reaction Additional Past Anesthesia/Blood Transfusion Reaction / Comment(s): PT HAD SWELLING OF FACE WITH ANESTHESIA DURING HYSTERECTOMY, BUT NO PROBLEMS SINCE. HAS NEVER RECEIVED BLOOD Past Psychological History: No Psychological Hx Reported Smoking Status: Former smoker Past Alcohol Use History: None Reported Past Drug Use History: None Reported - Past Family History Father Family Medical History: Congestive Heart Failure (CHF) Mother Family Medical History: Coronary Artery Disease (CAD), Diabetes Mellitus, Osteoarthritis (OA) Additional Family Medical History / Comment(s): Mother committed suicide in 1973 General Exam - General Exam Comments Initial Comments: NIH of 0 General appearance: alert, in no apparent distress Head exam: Present: atraumatic, normocephalic, normal inspection Eye exam: Present: normal appearance, PERRL, EOMI. Absent: scleral icterus, conjunctival injection, periorbital swelling ENT exam: Present: normal exam, mucous membranes moist Neck exam: Present: normal inspection. Absent: tenderness, meningismus, lymphadenopathy Respiratory exam: Present: normal lung sounds bilaterally. Absent: respiratory distress, wheezes, rales, rhonchi, stridor Cardiovascular Exam: Present: regular rate, normal rhythm, normal heart sounds. Absent: systolic murmur, diastolic murmur, rubs, gallop, clicks GI/Abdominal exam: Present: soft, normal bowel sounds. Absent: distended, tenderness, guarding, rebound, rigid Extremities exam: Present: normal inspection, full ROM, normal capillary refill. Absent: tenderness, pedal edema, joint swelling, calf tenderness Back exam: Present: normal inspection Neurological exam: Present: alert, oriented X3, CN II-XII intact Psychiatric exam: Present: normal affect, normal mood Skin exam: Present: warm, dry, intact, normal color. Absent: rash Course Vital Signs 10/30/17 10/30/17 12:51 14:21 Temperature 98 F Pulse Rate 78 77 Respiratory 18 18 Rate Blood Pressure 116/71 107/57 O2 Sat by Pulse 96 98 Oximetry - Reevaluation(s) Reevaluation #1: 10/30/17 14:47 Spoke with patient at length regarding symptoms, patient states the symptoms are episodic currently without symptoms Reevaluation #2: 10/30/17 14:48 Patient is very fearful about her symptoms especially not feeling well Medical Decision Making - Medical Decision Making 62 female the ER with loss of memory, weakness, feelings of near syncope. Patient will be admitted for evaluation by neurology - Lab Data Result diagrams: 10/30/17 13:21 10/30/17 13:21 Lab Results 10/30/17 10/30/17 10/30/17 Range/Units 13:21 13:21 13:21 WBC 8.7 (3.8-10.6) k/uL RBC 4.26 (3.80-5.40) m/uL Hgb 12.0 (11.4-16.0) gm/dL Hct 37.3 (34.0-46.0) % MCV 87.4 (80.0-100.0) fL MCH 28.1 (25.0-35.0) pg MCHC 32.1 (31.0-37.0) g/dL RDW 13.7 (11.5-15.5) % Plt Count 218 (150-450) k/uL Neutrophils % 68 % Lymphocytes % 24 % Monocytes % 4 % Eosinophils % 2 % Basophils % 1 % Neutrophils # 5.9 (1.3-7.7) k/uL Lymphocytes # 2.1 (1.0-4.8) k/uL Monocytes # 0.4 (0-1.0) k/uL Eosinophils # 0.2 (0-0.7) k/uL Basophils # 0.1 (0-0.2) k/uL PT (9.0-12.0) sec INR (<1.2) APTT (22.0-30.0) sec Sodium 139 (137-145) mmol/L Potassium 4.5 (3.5-5.1) mmol/L Chloride 102 (98-107) mmol/L Carbon Dioxide 26 (22-30) mmol/L Anion Gap 11 mmol/L BUN 36 H (7-17) mg/dL Creatinine 1.22 H (0.52-1.04) mg/dL Est GFR (CKD-EPI)AfAm 55 (>60 ml/min/1.73 sqM) Est GFR (CKD-EPI)NonAf 47 (>60 ml/min/1.73 sqM) Glucose 226 H (74-99) mg/dL Calcium 9.2 (8.4-10.2) mg/dL Phosphorus 4.5 (2.5-4.5) mg/dL Magnesium 2.0 (1.6-2.3) mg/dL Total Bilirubin 0.6 (0.2-1.3) mg/dL AST 20 (14-36) U/L ALT 33 (9-52) U/L Alkaline Phosphatase 97 (38-126) U/L Total Creatine Kinase 37 (30-135) U/L CK-MB (CK-2) 0.9 (0.0-2.4) ng/mL CK-MB (CK-2) Rel Index 2.4 Troponin I <0.012 (0.000-0.034) ng/mL Total Protein 7.2 (6.3-8.2) g/dL Albumin 4.0 (3.5-5.0) g/dL TSH 0.984 (0.465-4.680) mIU/L Urine Color Urine Appearance (Clear) Urine pH (5.0-8.0) Ur Specific [place] (1.001-1.035) Urine Protein (Negative) Urine Glucose (UA) (Negative) Urine Ketones (Negative) Urine Blood (Negative) Urine Nitrite (Negative) Urine Bilirubin (Negative) Urine Urobilinogen (<2.0) mg/dL Ur Leukocyte Esterase (Negative) Urine WBC (0-5) /hpf Ur Squamous Epith Cells (0-4) /hpf Urine Bacteria (None) /hpf Urine Mucus (None) /hpf 10/30/17 10/30/17 Range/Units 13:21 13:21 WBC (3.8-10.6) k/uL RBC (3.80-5.40) m/uL Hgb (11.4-16.0) gm/dL Hct (34.0-46.0) % MCV (80.0-100.0) fL MCH (25.0-35.0) pg MCHC (31.0-37.0) g/dL RDW (11.5-15.5) % Plt Count (150-450) k/uL Neutrophils % % Lymphocytes % % Monocytes % % Eosinophils % % Basophils % % Neutrophils # (1.3-7.7) k/uL Lymphocytes # (1.0-4.8) k/uL Monocytes # (0-1.0) k/uL Eosinophils # (0-0.7) k/uL Basophils # (0-0.2) k/uL PT 10.0 (9.0-12.0) sec INR 1.0 (<1.2) APTT 21.7 L (22.0-30.0) sec Sodium (137-145) mmol/L Potassium (3.5-5.1) mmol/L Chloride (98-107) mmol/L Carbon Dioxide (22-30) mmol/L Anion Gap mmol/L BUN (7-17) mg/dL Creatinine (0.52-1.04) mg/dL Est GFR (CKD-EPI)AfAm (>60 ml/min/1.73 sqM) Est GFR (CKD-EPI)NonAf (>60 ml/min/1.73 sqM) Glucose (74-99) mg/dL Calcium (8.4-10.2) mg/dL Phosphorus (2.5-4.5) mg/dL Magnesium (1.6-2.3) mg/dL Total Bilirubin (0.2-1.3) mg/dL AST (14-36) U/L ALT (9-52) U/L Alkaline Phosphatase (38-126) U/L Total Creatine Kinase (30-135) U/L CK-MB (CK-2) (0.0-2.4) ng/mL CK-MB (CK-2) Rel Index Troponin I (0.000-0.034) ng/mL Total Protein (6.3-8.2) g/dL Albumin (3.5-5.0) g/dL TSH (0.465-4.680) mIU/L Urine Color Yellow Urine Appearance Clear (Clear) Urine pH 5.5 (5.0-8.0) Ur Specific [place] 1.016 (1.001-1.035) Urine Protein Trace H (Negative) Urine Glucose (UA) 1+ H (Negative) Urine Ketones Negative (Negative) Urine Blood Negative (Negative) Urine Nitrite Negative (Negative) Urine Bilirubin Negative (Negative) Urine Urobilinogen <2.0 (<2.0) mg/dL Ur Leukocyte Esterase Small H (Negative) Urine WBC 2 (0-5) /hpf Ur Squamous Epith Cells 2 (0-4) /hpf Urine Bacteria Rare H (None) /hpf Urine Mucus Rare H (None) /hpf - Radiology Data Radiology results: report reviewed (CT brain negative for acute disease), image reviewed Disposition Clinical Impression: Diabetes mellitus, Transient cerebral ischemia Disposition: ADMITTED IP TO THIS HOSP Condition: Undetermined Instructions: Dizziness (ED) Is patient prescribed a controlled substance at d/c from ED?: No Referrals: Jose Manuel Moon MD [Primary Care Provider] - 1-2 days
[2017-10-30] MEDS: SODIUM CHLORIDE 0.9% 1,000 ML IV SCH (15:11)
[2017-10-30] MEDS ORDERED: ALBUTEROL NEBULIZED 2.5 MG/3 ML INHALATION PRN (16:37)
[2017-10-30 16:38] LABS: Glucose,Whole Blood 232 mg/dL (75-99)
[2017-10-30] MEDS: INSULIN ASPART 100 UNIT/ML 1 ML 10 ML VIAL SQ SCH ×2 (17:24→22:03)
[2017-10-30 20:44] LABS: Glucose,Whole Blood 196 mg/dL (75-99)
[2017-10-30] MEDS: FAMOTIDINE 20 MG TAB PO SCH (22:02)
[2017-10-30] MEDS ORDERED: ENALAPRILAT 1.25 MG/ML 1 ML VIAL IVP PRN (22:33)
[2017-10-30] MEDS: ACETAMINOPHEN TAB 325 MG TAB PO PRN (23:19)
[2017-10-31] MEDS: SODIUM CHLORIDE 0.9% 1,000 ML IV SCH ×3 (00:52→20:53)
[2017-10-31 05:48] LABS: Glucose,Whole Blood 186 mg/dL (75-99)
[2017-10-31] MEDS: LEVOTHYROXINE 125 MCG TAB PO SCH (06:26)
[2017-10-31] MEDS: ACETAMINOPHEN TAB 325 MG TAB PO PRN ×3 (06:26→20:53)
[2017-10-31] MEDS: INSULIN ASPART 100 UNIT/ML 1 ML 10 ML VIAL SQ SCH ×4 (06:27→20:53)
[2017-10-31] MEDS: glipiZIDE 10 MG TAB PO SCH (06:42)
[2017-10-31 07:14] LABS: Cholesterol 183 mg/dL (<200); HDL Cholesterol 37 mg/dL (40-60); LDL Cholesterol,Calculated 122 mg/dL (0-99); Triglycerides 121 mg/dL (<150)
--- NOTE | 2017-10-31 08:00 | P.CNNES ---
History of Present Illness Consult date: 10/30/17 Chief complaint: This patient is admitted with altered mental status and near syncope. History of Present Illness: This patient is a 62-year-old right-handed white female who was brought into the emergency room at [facility] today for evaluation of episodes of near syncope. Patient states she has been having recurrent symptoms of near syncope for the past 1 month. She states she becomes lightheaded and then feels very diaphoretic and has to sit down. 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 She states she has not had any passing out spells at work. She does have a known history of underlying diabetes mellitus but denies any previous history of hypoglycemia. She states that she has no warning when the symptoms would occur. There is been no recent changes in any of her medications. She is taking oral hypoglycemic agents. She also describes a sense of warmth and a burning sensation just prior to these events. Apparently these symptoms have been ongoing off and on for the past 1 month. She denies any falls at work or at home. She also has been complaining of memory changes and memory loss as she is more forgetful about things around her home. She does have history of underlying thyroid disorder as well and states that her last checkup with her primary care physician Dr. sandhu failed to reveal any abnormalities for her thyroid function. As noted she has a history of diabetes mellitus but is not aware for her last hemoglobin A1c. The patient also has been noticing increasing evidence for short-term memory loss. She feels she is more apt to have short-term memory loss in the last several months. She has mentioned this to her primary care physician as well. Patient was seen in the emergency room by Dr. Urbina and was sent for a computed tomography scan of the brain. CAT scan of the brain revealed degenerative and nonspecific white matter changes more typical of remote microvascular ischemia and also evidence of chronic mastoiditis. Patient states that she has no previous history of TIA or stroke. She has been very concerned with her general medical health deteriorating in the last several months. For this reason she was admitted to hospital for further evaluation. Neurology is now been consulted for further evaluation and recommendations. Review of Systems Constitutional: Denies chills, Denies fever Eyes: denies blurred vision, denies pain Ears, nose, mouth and throat: Denies headache, Denies sore throat Cardiovascular: Denies chest pain, Denies shortness of breath Respiratory: Denies cough Gastrointestinal: Denies abdominal pain, Denies diarrhea, Denies nausea, Denies vomiting Genitourinary: Denies dysuria, Denies hematuria Musculoskeletal: Denies myalgias Integumentary: Denies pruritus, Denies rash Neurological: Reports change in mentation, Reports confusion, Reports memory loss, Reports syncope, Denies numbness, Denies weakness Psychiatric: Reports confusion, Reports disorientation, Reports memory loss, Denies anxiety, Denies depression Endocrine: Denies fatigue, Denies weight change Past Medical History Past Medical History: COPD, Diabetes Mellitus, Deep Vein Thrombosis (DVT), GERD/ Reflux, Osteoarthritis (OA), Pneumonia, Renal Disease, Thyroid Disorder Additional Past Medical History / Comment(s): ON BP PILL BUT NOT AWARE OF HTN, "I THINK HE PUT ME ON IT FOR MY KIDNEYS. HAS BEEN HAVING an intermittent NON PRODUCTIVE COUGH OFF AND ON FOR ABOUT 4 MONTHS, past hiatal hernia(sx), "occ foods sticks when swallowing" History of Any Multi-Drug Resistant Organisms: MRSA Date of last positivie culture/infection: 2016 MDRO Source:: rt ist toe Past Surgical History: Appendectomy, Hernia Repair, Hysterectomy, Orthopedic Surgery, Tonsillectomy Additional Past Surgical History / Comment(s): LYSIS OF ABDOMINAL ADHESIONS. BILAT CTR., syed fundaloplasty, COLONOSCOPY- pt stated neg, EGD w/bx 10-05-17 pt has'nt gotten results yet.laser eye sx Past Anesthesia/Blood Transfusion Reactions: No Reported Reaction Additional Past Anesthesia/Blood Transfusion Reaction / Comment(s): PT HAD SWELLING OF FACE WITH ANESTHESIA DURING HYSTERECTOMY, BUT NO PROBLEMS SINCE. HAS NEVER RECEIVED BLOOD Smoking Status: Former smoker - Past Family History Father Family Medical History: Coronary Artery Disease (CAD) Additional Family Medical History / Comment(s): heart problems Mother Family Medical History: Coronary Artery Disease (CAD), Diabetes Mellitus, Osteoarthritis (OA) Additional Family Medical History / Comment(s): Mother committed suicide in 1973 Medications and Allergies Home Medications Medication Instructions Recorded Confirmed Type Levothyroxine Sodium [Synthroid] 125 mcg PO DAILY 03/02/14 10/30/17 History Cholecalciferol [Vitamin D3] 2,000 unit PO DAILY 06/26/16 10/30/17 History Famotidine [Pepcid] 20 mg PO BID 30 Days #60 tablet 09/12/17 10/30/17 Rx Aspirin EC [Ecotrin Low Dose] 81 mg PO DAILY 10/01/17 10/30/17 History Hydrochlorothiazide [Hydrodiuril] 25 mg PO DAILY 10/01/17 10/30/17 History glipiZIDE [Glucotrol] 10 mg PO DAILY 10/01/17 10/30/17 History Albuterol Inhaler [Ventolin Hfa 2 puff INHALATION RT-Q6H PRN 10/30/17 10/30/17 History Inhaler] Insulin Glargine,Hum.rec.anlog See Protocol SQ DAILY 10/30/17 10/30/17 History [Basaglar Kwikpen U-100] Losartan [Cozaar] 50 mg PO DAILY 10/30/17 10/30/17 History Allergies Allergy/AdvReac Type Severity Reaction Status Date / Time No Known Allergies Allergy Verified 10/30/17 16:21 Physical Examination - Vital Signs Vital Signs: Vital Signs Temp Pulse Resp BP BP Pulse Ox 10/30/17 16:00 97.5 F L 20 157/86 95 10/30/17 15:13 97.8 F 75 18 152/74 98 10/30/17 14:21 77 18 107/57 98 10/30/17 12:51 98 F 78 18 116/71 96 Intake and Output 10/30/17 10/30/17 10/30/17 06:59 14:59 22:59 Intake Total 100 Balance 100 Intake: Intake, IV Titration 100 Amount Sodium Chloride 0.9% 1, 100 000 ml @ 100 mls/hr IV . Q10H [facility] Rx#:[id number] Other: Weight 93.44 kg - Constitutional General appearance: average body habitus, cooperative - EENT EENT: PERRL, mucous membranes moist - Respiratory Respiratory: lungs clear, normal breath sounds - Cardiovascular Cardiovascular: regular rate, normal S1, normal S2 Extremities: no peripheral edema bilaterally - Gastrointestinal Gastrointestinal: normoactive bowel sounds - Integumentary Integumentary: normal - Neurologic Cranial nerve examination: PERRL, EOMI, VFF, V1/V2/V3 grossly intact, face symmetric, intact gag reflex, intact corneal reflex, normal palatal elevation Speech examination: intact Detailed motor examination: full strength in all major muscle groups Motor examination - right side: 5/5: biceps, triceps, wrist flexion, wrist extension, it instructor, hip flexors, knee extensors, dorsiflexion, toe extension (EHL) , plantarflexion Motor examination - left side: 5/5: biceps, triceps, wrist flexion, wrist extension, it instructor, hip flexors, knee extensors, dorsiflexion, toe extension (EHL) , plantarflexion Detailed sensory examination: intact Reflex and gait examination: intact Reflexes: 1+: ankle, bicep, knee, tricep - Musculoskeletal Musculoskeletal: no pain - Psychiatric Psychiatric: mood/affect appropriate, cooperative Results - Laboratory Findings CBC and BMP: 10/30/17 13:21 10/30/17 13:21 Abnormal Lab Findings: Abnormal Labs 10/30/17 10/30/17 10/30/17 13:21 13:21 13:21 APTT 21.7 L BUN 36 H Creatinine 1.22 H Glucose 226 H POC Glucose (mg/dL) Urine Protein Trace H Urine Glucose (UA) 1+ H Ur Leukocyte Esterase Small H Urine Bacteria Rare H Urine Mucus Rare H 10/30/17 16:18 APTT BUN Creatinine Glucose POC Glucose (mg/dL) 232 H Urine Protein Urine Glucose (UA) Ur Leukocyte Esterase Urine Bacteria Urine Mucus Assessment and Plan (1) TIA (transient ischemic attack) Current Visit: Yes Status: Acute Code(s): G45.9 - TRANSIENT CEREBRAL ISCHEMIC ATTACK, UNSPECIFIED SNOMED Code(s): 220608255 (2) Metabolic encephalopathy Current Visit: Yes Status: Acute Code(s): G93.41 - METABOLIC ENCEPHALOPATHY SNOMED Code(s): 87445513 (3) Memory loss Current Visit: Yes Status: Acute Code(s): R41.3 - OTHER AMNESIA SNOMED Code(s): 814456387 (4) Diabetes mellitus Current Visit: Yes Status: Chronic Code(s): E11.9 - TYPE 2 DIABETES MELLITUS WITHOUT COMPLICATIONS SNOMED Code(s): 75732277 Plan: This patient is a 62-year-old right-handed white female who was admitted to Hospital today for evaluation of near syncope and dizziness. Patient states she has been having multiple falls at home due to unsteadiness and dizziness. The symptoms have been ongoing for the past 1 month. Patient states she feels lightheaded and then becomes diaphoretic just prior to these events. 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 She does stand most of the day and has had near syncopal episodes while working. She states she also becomes very warm just prior to these events. Her clinical history suggesting possibility of near syncope and would warrant a cardiology consultation for her. She denies any previous history of seizures or head trauma in the past. She has a known history of diabetes mellitus but denies any history of hypoglycemic reactions. We have recommended that she have her hemoglobin A1c checked during this admission as well. Patient also has been having symptoms of poor memory loss and difficulty concentrating at work as well as at home. Exact etiology of this is unknown. She was brought into the emergency room today for further evaluation. She was seen in the ER by Dr. Urbina. She was sent for a computed tomography scan of the brain which revealed degenerative and nonspecific white matter changes with remote microvascular ischemia. 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 The patient denies any previous history of TIA or stroke. She is now been admitted and neurology has been consulted for further evaluation and recommendations. We will continue close neurological follow-up for this patient during this admission. Her overall prognosis at this time remains guarded. Time with Patient: Greater than 30
[2017-10-31] MEDS: FAMOTIDINE 20 MG TAB PO SCH ×2 (08:20→20:53)
[2017-10-31] MEDS: HYDROCHLOROTHIAZIDE 25 MG TAB PO SCH (08:20)
[2017-10-31] MEDS: ASPIRIN 81 MG PO SCH (08:21)
[2017-10-31] MEDS: INSULIN DETEMIR 100 UNIT/ML 10 ML VIAL SQ SCH (08:23)
[2017-10-31] MEDS ORDERED: LISINOPRIL-HCTZ 10-12.5 MG 1 EACH TAB PO SCH (09:00)
[2017-10-31] MEDS ORDERED: LORazepam 2 MG/ML INJ IV STA (09:41)
--- NOTE | 2017-10-31 10:06 | P.HPIM ---
History of Present Illness H&P Date: 10/31/17 Chief Complaint: Altered mental status and syncope 62-year-old female seen evaluated examined while covering for Dr. Jose Manuel Moon this patient has been admitted into the hospital with the dizziness lightheadedness and symptoms of near-syncope which has been going on for over a month patient has been evaluated by neurology, patient is scheduled for MRI this morning, her past medical history significant for diabetes mellitus Symptoms of hypoglycemia in the past, no history of complete loss of consciousness or hemiparesis, review of the data revealed that computed tomography scan performed emergency department shows some chronic changes no acute finding has been identified Ammann specific questioning patient denies any chest pain or radiation of pain denies any nausea vomiting or abdominal discomfort Review of Systems All systems: negative Past Medical History Past Medical History: COPD, Diabetes Mellitus, Deep Vein Thrombosis (DVT), GERD/ Reflux, Osteoarthritis (OA), Pneumonia, Renal Disease, Thyroid Disorder Additional Past Medical History / Comment(s): ON BP PILL BUT NOT AWARE OF HTN, "I THINK HE PUT ME ON IT FOR MY KIDNEYS. HAS BEEN HAVING an intermittent NON PRODUCTIVE COUGH OFF AND ON FOR ABOUT 4 MONTHS, past hiatal hernia(sx), "occ foods sticks when swallowing" History of Any Multi-Drug Resistant Organisms: MRSA Date of last positivie culture/infection: 2016 MDRO Source:: rt ist toe Past Surgical History: Appendectomy, Hernia Repair, Hysterectomy, Orthopedic Surgery, Tonsillectomy Additional Past Surgical History / Comment(s): LYSIS OF ABDOMINAL ADHESIONS. BILAT CTR., syed fundaloplasty, COLONOSCOPY- pt stated neg, EGD w/bx 10-05-17 pt has'nt gotten results yet.laser eye sx Past Anesthesia/Blood Transfusion Reactions: No Reported Reaction Additional Past Anesthesia/Blood Transfusion Reaction / Comment(s): PT HAD SWELLING OF FACE WITH ANESTHESIA DURING HYSTERECTOMY, BUT NO PROBLEMS SINCE. HAS NEVER RECEIVED BLOOD Smoking Status: Former smoker - Past Family History Father Family Medical History: Coronary Artery Disease (CAD) Additional Family Medical History / Comment(s): heart problems Mother Family Medical History: Coronary Artery Disease (CAD), Diabetes Mellitus, Osteoarthritis (OA) Additional Family Medical History / Comment(s): Mother committed suicide in 1973 Medications and Allergies Home Medications Medication Instructions Recorded Confirmed Type Levothyroxine Sodium [Synthroid] 125 mcg PO DAILY 03/02/14 10/30/17 History Cholecalciferol [Vitamin D3] 2,000 unit PO DAILY 06/26/16 10/30/17 History Famotidine [Pepcid] 20 mg PO BID 30 Days #60 tablet 09/12/17 10/30/17 Rx Aspirin EC [Ecotrin Low Dose] 81 mg PO DAILY 10/01/17 10/30/17 History Hydrochlorothiazide [Hydrodiuril] 25 mg PO DAILY 10/01/17 10/30/17 History glipiZIDE [Glucotrol] 10 mg PO DAILY 10/01/17 10/30/17 History Albuterol Inhaler [Ventolin Hfa 2 puff INHALATION RT-Q6H PRN 10/30/17 10/30/17 History Inhaler] Insulin Glargine,Hum.rec.anlog See Protocol SQ DAILY 10/30/17 10/30/17 History [Basaglar Kwikpen U-100] Losartan [Cozaar] 50 mg PO DAILY 10/30/17 10/30/17 History Allergies Allergy/AdvReac Type Severity Reaction Status Date / Time No Known Allergies Allergy Verified 10/30/17 16:21 Physical Exam Vitals: Vital Signs Temp Pulse Pulse Resp BP BP Pulse Ox 10/31/17 08:10 97.6 F 67 16 111/68 96 10/31/17 04:00 98.2 F 70 18 118/58 95 10/30/17 23:53 97.8 F 73 17 140/65 95 10/30/17 20:00 98.5 F 81 18 163/70 96 10/30/17 16:00 97.5 F L 20 157/86 95 10/30/17 15:13 97.8 F 75 18 152/74 98 10/30/17 14:21 77 18 107/57 98 10/30/17 12:51 98 F 78 18 116/71 96 Intake and Output 10/30/17 10/31/17 10/31/17 22:59 06:59 14:59 Intake Total 100 180 Balance 100 180 Intake: Intake, IV Titration 100 Amount Sodium Chloride 0.9% 1, 100 000 ml @ 100 mls/hr IV . Q10H [facility] Rx#:[id number] Oral 180 Other: Voiding Method Toilet Toilet Toilet # Voids 1 Weight 93.1 kg General appearance: alert, in no apparent distress Head exam: Present: atraumatic, normocephalic, normal inspection Eye exam: Present: normal appearance, PERRL, EOMI. Absent: scleral icterus, conjunctival injection, periorbital swelling ENT exam: Present: normal exam, mucous membranes moist Neck exam: Present: normal inspection. Absent: tenderness, meningismus, lymphadenopathy Respiratory exam: Present: normal lung sounds bilaterally. Absent: respiratory distress, wheezes, rales, rhonchi, stridor Cardiovascular Exam: Present: regular rate, normal rhythm, normal heart sounds. Absent: systolic murmur, diastolic murmur, rubs, gallop, clicks GI/Abdominal exam: Present: soft, normal bowel sounds. Absent: distended, tenderness, guarding, rebound, rigid Extremities exam: Present: normal inspection, full ROM, normal capillary refill. Absent: tenderness, pedal edema, joint swelling, calf tenderness Back exam: Present: normal inspection Neurological exam: Present: alert, oriented X3, CN II-XII intact Psychiatric exam: Present: normal affect, normal mood Skin exam: Present: warm, dry, intact, normal color. Absent: rash Results CBC & Chem 7: 10/30/17 13:21 10/30/17 13:21 Labs: Abnormal Lab Results - Last 24 Hours (Table) 10/30/17 10/30/17 10/30/17 Range/Units 13:21 13:21 13:21 APTT 21.7 L (22.0-30.0) sec BUN 36 H (7-17) mg/dL Creatinine 1.22 H (0.52-1.04) mg/dL Glucose 226 H (74-99) mg/dL POC Glucose (mg/dL) (75-99) mg/dL LDL Cholesterol, Calc (0-99) mg/dL HDL Cholesterol (40-60) mg/dL Urine Protein Trace H (Negative) Urine Glucose (UA) 1+ H (Negative) Ur Leukocyte Esterase Small H (Negative) Urine Bacteria Rare H (None) /hpf Urine Mucus Rare H (None) /hpf 10/30/17 10/30/17 10/31/17 Range/Units 16:18 20:43 05:47 APTT (22.0-30.0) sec BUN (7-17) mg/dL Creatinine (0.52-1.04) mg/dL Glucose (74-99) mg/dL POC Glucose (mg/dL) 232 H 196 H 186 H (75-99) mg/dL LDL Cholesterol, Calc (0-99) mg/dL HDL Cholesterol (40-60) mg/dL Urine Protein (Negative) Urine Glucose (UA) (Negative) Ur Leukocyte Esterase (Negative) Urine Bacteria (None) /hpf Urine Mucus (None) /hpf 10/31/17 Range/Units 06:16 APTT (22.0-30.0) sec BUN (7-17) mg/dL Creatinine (0.52-1.04) mg/dL Glucose (74-99) mg/dL POC Glucose (mg/dL) (75-99) mg/dL LDL Cholesterol, Calc 122 H (0-99) mg/dL HDL Cholesterol 37 L (40-60) mg/dL Urine Protein (Negative) Urine Glucose (UA) (Negative) Ur Leukocyte Esterase (Negative) Urine Bacteria (None) /hpf Urine Mucus (None) /hpf Microbiology - Last 24 Hours (Table) 10/30/17 13:21 Urine Culture - Preliminary Urine,Clean Catch CT Scan - head: report reviewed Thrombosis Risk Factor Assmnt - Choose All That Apply Any of the Below Risk Factors Present?: No Assessment and Plan Assessment: Near syncope of unclear etiology workup is in progress patient is for MRI Type 2 diabetes mellitus COPD GERD Hypertension and hypertensive cardiovascular disease Hypothyroidism Plan: Continue home medications MRI of the brain Cardio consult Monitor sugars DVT peptic ulcer disease prophylaxis Increase activity as tolerated once cleared by neuro and cardiovascular services Follow clinical course closely Gentle rehydration
[2017-10-31] MEDS: LOSARTAN 50 MG TAB PO SCH (11:23)
[2017-10-31 11:48] LABS: Glucose,Whole Blood 240 mg/dL (75-99)
[2017-10-31] MEDS ORDERED: ASPIRIN 325 MG TAB PO SCH (12:00)
--- NOTE | 2017-10-31 12:57 | MR ---
EXAMINATION TYPE: MR brain wo con DATE OF EXAM: 10/31/2017 12:40 PM. COMPARISON: Previous study dated 11/06/2014. HISTORY: Near syncope. Technique: Multiplanar, multiecho imaging of the brain was obtained without intravenous contrast. FINDINGS: Midline structures are unremarkable. There is a normal craniocervical junction. Echoplanar diffusion imaging is normal. There are normal vascular flow voids. The orbits are unremarkable. There is a stable cystic lesion relating to the right TMJ joint, likely representing a ganglion cyst. There is no evidence of a CP angle mass lesion. There is both punctate and confluent periventricular white matter change likely secondary to a combin ation of small vessel disease and chronic ischemic change. This has not changed appreciably from the previous study although there is a new 7.7 mm lesion in the superior longitudinal fasciculus on the l eft in the left frontal lobe. There is no mass effect, midline shift or intracranial blood. IMPRESSION: 1. NO ACUTE INTRACRANIAL ABNORMALITY. 2. BOTH PUNCTATE AND CONFLUENT PERIVENTRICULAR WHITE MATTER CHANGE LIKELY ON THE BASIS OF SMALL VESSE L DISEASE AND CHRONIC ISCHEMIC CHANGE. 3. PROBABLE GANGLION CYST RELATED TO THE RIGHT TMJ JOINT.
[2017-10-31] MEDS: CHOLECALCIFEROL 1,000 UNIT TAB PO SCH (13:34)
[2017-10-31 17:09] LABS: Glucose,Whole Blood 207 mg/dL (75-99)
[2017-10-31 18:37] LABS: Hemoglobin A1C 10.3 % (4.0-6.0)
[2017-10-31 20:52] LABS: Glucose,Whole Blood 202 mg/dL (75-99)
[2017-11-01 05:51] LABS: Glucose,Whole Blood 172 mg/dL (75-99)
[2017-11-01] MEDS: glipiZIDE 10 MG TAB PO SCH (06:56)
[2017-11-01] MEDS: SODIUM CHLORIDE 0.9% 1,000 ML IV SCH ×2 (06:56→08:22)
[2017-11-01] MEDS: LEVOTHYROXINE 125 MCG TAB PO SCH (06:56)
[2017-11-01] MEDS: INSULIN ASPART 100 UNIT/ML 1 ML 10 ML VIAL SQ SCH ×4 (06:57→20:57)
[2017-11-01] MEDS: ACETAMINOPHEN TAB 325 MG TAB PO PRN (08:22)
[2017-11-01] MEDS: FAMOTIDINE 20 MG TAB PO SCH ×2 (08:23→20:53)
[2017-11-01] MEDS: LOSARTAN 50 MG TAB PO SCH (08:23)
[2017-11-01] MEDS: INSULIN DETEMIR 100 UNIT/ML 10 ML VIAL SQ SCH (08:23)
[2017-11-01] MEDS: ASPIRIN 81 MG PO SCH (08:23)
[2017-11-01] MEDS: HYDROCHLOROTHIAZIDE 25 MG TAB PO SCH (08:23)
--- NOTE | 2017-11-01 08:45 | P.PN ---
Subjective Progress Note Date: 11/01/17 Principal diagnosis: TIA, near-syncope, altered mental status likely metabolic, type 2 diabetes mellitus 11/01/2017, patient seen and evaluated examined during the rounds clinically patient is not much change it's still have intermittent episodes of near dizziness never actually loss of consciousness, patient has been evaluated with EEG results are pending, MRI of the head was performed reviewed the report they were fine punctate white matter changes were noted, denies any chest pain shortness of breath labs reviewed medications reviewed 62-year-old female seen evaluated examined while covering for Dr. Jose Manuel Moon this patient has been admitted into the hospital with the dizziness lightheadedness and symptoms of near-syncope which has been going on for over a month patient has been evaluated by neurology, patient is scheduled for MRI this morning, her past medical history significant for diabetes mellitus Symptoms of hypoglycemia in the past, no history of complete loss of consciousness or hemiparesis, review of the data revealed that computed tomography scan performed emergency department shows some chronic changes no acute finding has been identified, on specific questioning patient denies any chest pain or radiation of pain denies any nausea vomiting or abdominal discomfort Objective - Vital Signs Vital signs: Vital Signs Temp 98.2 F 11/01/17 08:00 Pulse 68 11/01/17 08:00 Resp 16 11/01/17 08:00 BP 150/67 11/01/17 08:00 Pulse Ox 95 11/01/17 08:00 Intake & Output 10/31/17 11/01/17 11/01/17 18:59 06:59 18:59 Intake Total 1270 800 Balance 1270 800 Weight 93.4 kg Intake: IV 700 800 Sodium Chloride 0.9% 1, 700 800 000 ml @ 100 mls/hr IV . Q10H [facility] Rx#:[id number] Oral 570 Other: Voiding Method Toilet Toilet # Voids 3 - Exam General appearance: alert, in no apparent distress Head exam: Present: atraumatic, normocephalic, normal inspection Eye exam: Present: normal appearance, PERRL, EOMI. no evidence of scleral icterus, conjunctival injection, periorbital swelling ENT exam: Present: normal exam, mucous membranes moist Neck exam: Present: normal inspection. No evidence of tenderness, meningismus, lymphadenopathy Respiratory exam: Present: normal lung sounds bilaterally. No evidence of respiratory distress, wheezes, rales, rhonchi, stridor Cardiovascular Exam: Present: regular rate, normal rhythm, normal heart sounds. No evidence of systolic murmur, diastolic murmur, rubs, gallop, clicks GI/Abdominal exam: Present: soft, normal bowel sounds. No evidence of distension, tenderness, guarding, rebound, rigid Extremities exam: Present: normal inspection, full ROM, normal capillary refill. Absent: tenderness, pedal edema, joint swelling, calf tenderness Back exam: Present: normal inspection Neurological exam: Present: alert, oriented X3, CN II-XII intact Psychiatric exam: Present: normal affect, normal mood Skin exam: Present: warm, dry, intact, normal color. Absent: rash - Labs CBC & Chem 7: 10/30/17 13:21 10/30/17 13:21 Labs: Abnormal Lab Results - Last 24 Hours (Table) 10/30/17 10/31/17 10/31/17 Range/Units 13:21 11:33 16:50 POC Glucose (mg/dL) 240 H 207 H (75-99) mg/dL Hemoglobin A1c 10.3 H (4.0-6.0) % 10/31/17 11/01/17 Range/Units 20:51 05:50 POC Glucose (mg/dL) 202 H 172 H (75-99) mg/dL Hemoglobin A1c (4.0-6.0) % Microbiology - Last 24 Hours (Table) 10/30/17 13:21 Urine Culture - Final Urine,Clean Catch Assessment and Plan Assessment: Near syncope of unclear etiology workup is in progress patient is for MRI, possible TIA cannot be excluded Type 2 diabetes mellitus COPD GERD Hypertension and hypertensive cardiovascular disease Hypothyroidism Plan: Continue home medications MRI of the brain report reviewed Cardio consult pending Monitor sugars DVT peptic ulcer disease prophylaxis Increase activity as tolerated once cleared by neuro and cardiovascular services Follow clinical course closely Gentle rehydration Time with Patient: Greater than 30
--- NOTE | 2017-11-01 09:13 | P.PN ---
Subjective Progress Note Date: 10/31/17 This patient is a 62-year-old right-handed white female who is being evaluated for altered mental status and recurrent near syncope. Patient seems to be doing somewhat better today as compared to yesterday. She was able to go for MRI of the brain today for further evaluation. MRI report was reviewed today and does reveal both punctate and confluent periventricular white matter changes likely representing small vessel ischemic changes. There was no acute intracranial abnormality detected. There was no evidence of acute stroke. There is a probable ganglion cyst related to the right TMJ joint. We reviewed the results of the MRI today with the patient in detail. We have reassured her that based on the MRI of the brain there is no evidence of acute stroke for this patient. We are waiting further input and recommendations from cardiology regarding her recurrent near syncopal episodes. Patient may require a reveal monitor for long-term cardiac monitoring. We will await further recommendations from cardiology. We will review her EEG didn't which was completed today as well to rule out any possibility of underlying seizure disorder which seems to be less likely given her history. Would recommend tight control of her blood pressure and her diabetes mellitus as risk factors for recurrent stroke. Overall prognosis at this time remains guarded. Objective - Vital Signs Vital signs: Vital Signs Temp 97.7 F 10/31/17 11:44 Pulse 71 10/31/17 16:00 Resp 16 10/31/17 16:00 BP 114/66 10/31/17 15:34 Pulse Ox 96 10/31/17 15:34 Intake & Output 10/30/17 10/31/17 10/31/17 18:59 06:59 18:59 Intake Total 100 1030 Balance 100 1030 Weight 93.44 kg 93.1 kg Intake: IV 700 Sodium Chloride 0.9% 1, 700 000 ml @ 100 mls/hr IV . Q10H [facility] Rx#:[id number] Intake, IV Titration 100 Amount Sodium Chloride 0.9% 1, 100 000 ml @ 100 mls/hr IV . Q10H [facility] Rx#:[id number] Oral 330 Other: Voiding Method Toilet Toilet # Voids 1 - Exam Physical examination: PHYSICAL EXAMINATION: Patient is resting comfortably in bed. VITAL SIGNS: Blood pressure is [114/66]. Heart rate is [71]. Respiration is [16] . Temperature is [97.7]. HEENT: Head is atraumatic, neck is supple, there were no carotid bruits. CHEST: Lungs are clear to auscultation and percussion. CARDIAC: S1, S2 normal rate and rhythm. There is no murmur. ABDOMEN: Soft and nontender. Bowel sounds are present. EXTREMITIES: There is no pedal edema. Peripheral pulses are present. Neurological examination: Patient's neurological examination is unchanged from yesterday. - Labs CBC & Chem 7: 10/30/17 13:21 10/30/17 13:21 Labs: Abnormal Lab Results - Last 24 Hours (Table) 10/30/17 10/31/17 10/31/17 Range/Units 20:43 05:47 06:16 POC Glucose (mg/dL) 196 H 186 H (75-99) mg/dL LDL Cholesterol, Calc 122 H (0-99) mg/dL HDL Cholesterol 37 L (40-60) mg/dL 10/31/17 Range/Units 11:33 POC Glucose (mg/dL) 240 H (75-99) mg/dL LDL Cholesterol, Calc (0-99) mg/dL HDL Cholesterol (40-60) mg/dL Microbiology - Last 24 Hours (Table) 10/30/17 13:21 Urine Culture - Preliminary Urine,Clean Catch Assessment and Plan (1) TIA (transient ischemic attack) Current Visit: Yes Status: Acute Code(s): G45.9 - TRANSIENT CEREBRAL ISCHEMIC ATTACK, UNSPECIFIED SNOMED Code(s): 332988296 (2) Metabolic encephalopathy Current Visit: Yes Status: Acute Code(s): G93.41 - METABOLIC ENCEPHALOPATHY SNOMED Code(s): 54730196 (3) Memory loss Current Visit: Yes Status: Acute Code(s): R41.3 - OTHER AMNESIA SNOMED Code(s): 920825713 (4) Diabetes mellitus Current Visit: Yes Status: Chronic Code(s): E11.9 - TYPE 2 DIABETES MELLITUS WITHOUT COMPLICATIONS SNOMED Code(s): 52105744 Plan: This patient is a 62-year-old right-handed white female who was admitted to Hospital today for evaluation of near syncope and dizziness. Patient states she has been having multiple falls at home due to unsteadiness and dizziness. The symptoms have been ongoing for the past 1 month. Patient states she feels lightheaded and then becomes diaphoretic just prior to these events. 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 She does stand most of the day and has had near syncopal episodes while working. She states she also becomes very warm just prior to these events. Her clinical history suggesting possibility of near syncope and would warrant a cardiology consultation for her. She denies any previous history of seizures or head trauma in the past. She has a known history of diabetes mellitus but denies any history of hypoglycemic reactions. We have recommended that she have her hemoglobin A1c checked during this admission as well. Patient also has been having symptoms of poor memory loss and difficulty concentrating at work as well as at home. Exact etiology of this is unknown. She was brought into the emergency room today for further evaluation. She was seen in the ER by Dr. Urbina. She was sent for a computed tomography scan of the brain which revealed degenerative and nonspecific white matter changes with remote microvascular ischemia. 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 The patient denies any previous history of TIA or stroke. She is now been admitted and neurology has been consulted for further evaluation and recommendations. The patient was able to complete MRI of the brain today. Results are as noted above. MRI fails to reveal any evidence of acute stroke. She is being evaluated by cardiology for recurrent syncope and near-syncope symptoms. We will await their final recommendations. In the meantime we will continue close neurological follow-up for this patient during this admission. Her overall prognosis at this time remains guarded.
--- NOTE | 2017-11-01 10:22 | P.CRDCN ---
History of Present Illness History of present illness: Mrs. Sahu is a pleasant 62-year-old female past medical history significant for hypertension, COPD, diabetes mellitus, gastroesophageal reflux disease and dyslipidemia. She denies history of coronary artery disease and is never seen a marketing analytics analyst for any reason. We've been asked to see her in consultation for presyncope. She presented to the hospital 2 days ago with symptoms of dizziness, increased weakness, shortness of breath and diaphoresis. 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 His been increasingly warm recently she feels as though she has been getting extremely diaphoretic associated with increased activity. She states she gets very dizzy intermittently as well. She feels as if she is lightheaded not that the room is spinning. She denies symptoms of chest pain, palpitations associated with these symptoms. She is treated for hypertension her primary care physician. She has also been seen in consultation for neurology and they have discussed these episodes as a TIA. CT of the brain as well as MRI failed to reveal any evidence of acute stroke. She has had no further symptoms since admission. Blood pressures have been fluctuating since admission lowest at 107/57 with highest 190/82. EKG reveals sinus mechanism with no acute ST or T wave abnormalities noted. Laboratory data reviewed, LDL 122, HDL 37, hemoglobin 12.0, platelets 218, sodium 139, potassium 4.5, creatinine 1.22, magnesium 2.0, TSH 0.94, cardiac enzymes negative 1. Current cardiac medications include losartan 50 mg daily, aspirin 81 mg daily and hydrochlorothiazide 25 mg daily. She also takes Synthroid, Glucotrol, insulin, Ventolin and Pepcid. Most recent echo performed 2016 reveals preserved left ventricular systolic function with ejection fraction 60-65%. At the time of my exam: CONSTITUTIONAL: Denies fever. Denies chills. EYES: Denies blurred vision. Denies vision changes. Denies eye pain. EARS, NOSE, MOUTH & THROAT: Denies headache. Denies sore throat. Denies ear pain. CARDIOVASCULAR: Denies chest pain. Denies shortness of breath. Denies orthopnea. Denies PND. Denies palpitations. RESPIRATORY: Denies cough. GASTROINTESTINAL: Denies abdominal pain. Denies diarrhea. Denies constipation. Denies nausea. Denies vomiting. MUSCULOSKELETAL: Denies myalgias. INTEGUMENTARY: Denies pruitis. Denies rash. NEUROLOGIC: Denies numbness. Denies tingling. Denies weakness. PSYCHIATRIC: Denies anxiety. Denies depression. ENDOCRINE: Denies fatigue. Denies weight change. Denies polydipsia. Denies polyurina. GENITOURINARY: Denies burning, hematuria or urgency with micturation. HEMATOLOGIC: Denies history of anemia. Denies bleeding. Blood pressure 150/67 heart rate 68 afebrile maintaining oxygen saturation on room air GENERAL: This is a 62-year-old female in no apparent distress at the time of my examination. HEENT: Head is atraumatic, normocephalic. Pupils are equal, round. Sclerae anicteric. Conjunctivae are clear. Mucous membranes of the mouth are moist. Neck is supple. There is no jugular venous distention. No carotid bruit is heard. LUNGS: Clear to auscultation no wheezes, rales or rhonchi. No chest wall tenderness is noted on palpation or with deep breathing. HEART: Regular rate and rhythm without murmurs, rubs or gallops. S1 and S2 heard. ABDOMEN: Soft, nontender. Bowel sounds are heard. No organomegaly noted. EXTREMITIES: No evidence of peripheral edema and no calf tenderness noted. VASCULAR: Radial and dorsalis pedis pulses palpated, no evidence of clubbing. NEUROLOGIC: Patient is awake, alert and oriented x3. ASSESSMENT Dizziness, and acute CVA has been ruled out possibility of TIA. Symptoms suggestive of vasovagal reaction. Pressures have been fluctuating. Hypertension Diabetes mellitus Dyslipidemia not currently on a statin History of DVT in the past COPD Hypothyroidism PLAN Obtain 2-D echocardiogram and Doppler study to assess cardiac structure and function. Continue to cycle cardiac enzymes to rule out an acute event. Check d-dimer. Add on atorvastatin 40 mg daily. Tilt table study will be performed tomorrow. Plan and recommendations have been discussed in detail with the patient. Further recommendations to follow based upon clinical course. Nurse Practitioner note has been reviewed, I agree with a documented findings and plan of care. Patient was seen and examined. Past Medical History Past Medical History: COPD, Diabetes Mellitus, Deep Vein Thrombosis (DVT), GERD/ Reflux, Osteoarthritis (OA), Pneumonia, Renal Disease, Thyroid Disorder Additional Past Medical History / Comment(s): ON BP PILL BUT NOT AWARE OF HTN, "I THINK HE PUT ME ON IT FOR MY KIDNEYS. HAS BEEN HAVING an intermittent NON PRODUCTIVE COUGH OFF AND ON FOR ABOUT 4 MONTHS, past hiatal hernia(sx), "occ foods sticks when swallowing" History of Any Multi-Drug Resistant Organisms: MRSA Date of last positivie culture/infection: 2016 MDRO Source:: rt ist toe Past Surgical History: Appendectomy, Hernia Repair, Hysterectomy, Orthopedic Surgery, Tonsillectomy Additional Past Surgical History / Comment(s): LYSIS OF ABDOMINAL ADHESIONS. BILAT CTR., syed fundaloplasty, COLONOSCOPY- pt stated neg, EGD w/bx 10-05-17 pt has'nt gotten results yet.laser eye sx Past Anesthesia/Blood Transfusion Reactions: No Reported Reaction Additional Past Anesthesia/Blood Transfusion Reaction / Comment(s): PT HAD SWELLING OF FACE WITH ANESTHESIA DURING HYSTERECTOMY, BUT NO PROBLEMS SINCE. HAS NEVER RECEIVED BLOOD Smoking Status: Former smoker - Past Family History Father Family Medical History: Coronary Artery Disease (CAD) Additional Family Medical History / Comment(s): heart problems Mother Family Medical History: Coronary Artery Disease (CAD), Diabetes Mellitus, Osteoarthritis (OA) Additional Family Medical History / Comment(s): Mother committed suicide in 1973 Medications and Allergies Home Medications Medication Instructions Recorded Confirmed Type Levothyroxine Sodium [Synthroid] 125 mcg PO DAILY 03/02/14 10/30/17 History Cholecalciferol [Vitamin D3] 2,000 unit PO DAILY 06/26/16 10/30/17 History Famotidine [Pepcid] 20 mg PO BID 30 Days #60 tablet 09/12/17 10/30/17 Rx Aspirin EC [Ecotrin Low Dose] 81 mg PO DAILY 10/01/17 10/30/17 History Hydrochlorothiazide [Hydrodiuril] 25 mg PO DAILY 10/01/17 10/30/17 History glipiZIDE [Glucotrol] 10 mg PO DAILY 10/01/17 10/30/17 History Albuterol Inhaler [Ventolin Hfa 2 puff INHALATION RT-Q6H PRN 10/30/17 10/30/17 History Inhaler] Insulin Glargine,Hum.rec.anlog See Protocol SQ DAILY 10/30/17 10/30/17 History [Basaglar Kwikpen U-100] Losartan [Cozaar] 50 mg PO DAILY 10/30/17 10/30/17 History Allergies Allergy/AdvReac Type Severity Reaction Status Date / Time No Known Allergies Allergy Verified 10/30/17 16:21 Physical Exam Vitals: Vital Signs Temp Pulse Pulse Pulse Pulse Resp BP 11/01/17 09:17 72 74 69 190/82 11/01/17 08:00 98.2 F 68 16 11/01/17 04:00 96.4 F L 64 18 11/01/17 00:00 97.2 F L 68 18 10/31/17 20:00 98.1 F 75 18 10/31/17 16:00 71 16 10/31/17 15:34 71 16 10/31/17 11:44 97.7 F 72 20 BP BP BP Pulse Ox 11/01/17 09:17 166/72 188/81 11/01/17 08:00 150/67 95 11/01/17 04:00 146/68 96 11/01/17 00:00 149/68 96 10/31/17 20:00 155/72 97 10/31/17 16:00 10/31/17 15:34 114/66 96 10/31/17 11:44 135/78 97 Intake and Output 10/31/17 11/01/17 11/01/17 22:59 06:59 14:59 Intake Total 240 800 180 Balance 240 800 180 Intake: IV 800 Sodium Chloride 0.9% 1, 800 000 ml @ 100 mls/hr IV . Q10H [facility] Rx#:[id number] Oral 240 180 Other: Voiding Method Toilet Toilet Toilet # Voids 3 Weight 93.4 kg Results 10/30/17 13:21 10/30/17 13:21 Current Medications Generic Name Dose Route Start Last Admin Trade Name Freq PRN Reason Stop Dose Admin Acetaminophen 650 mg 10/30/17 22:33 11/01/17 08:22 Tylenol Tab PO 650 mg Q6HR PRN Administration Fever and/ or Pain Albuterol Sulfate 2.5 mg 10/30/17 16:37 Ventolin Nebulized INHALATION RT-Q6H PRN Shortness Of Breath Aspirin 81 mg 10/31/17 09:00 11/01/17 08:23 Aspirin PO 81 mg DAILY [facility] Administration Cholecalciferol 2,000 unit 10/31/17 12:00 10/31/17 13:34 Vitamin D3 PO 2,000 unit 1200 [facility] Administration Famotidine 20 mg 10/30/17 21:00 11/01/17 08:23 Pepcid PO 20 mg BID [facility] Administration Glipizide 10 mg 10/31/17 07:30 11/01/17 06:56 Glucotrol PO 10 mg [id number] [facility] Administration Hydrochlorothiazide 25 mg 10/31/17 09:00 11/01/17 08:23 Hydrodiuril PO 25 mg DAILY [facility] Administration Insulin Aspart 0 unit 10/30/17 17:30 11/01/17 06:57 Novolog SQ 2 unit ACHS [facility] Administration Protocol Insulin Detemir 25 unit 10/31/17 09:00 11/01/17 08:23 Levemir SQ 25 unit DAILY [facility] Administration Levothyroxine Sodium 125 mcg 10/31/17 06:30 11/01/17 06:56 Synthroid PO 125 mcg 0630 [facility] Administration Losartan Potassium 50 mg 10/31/17 09:00 11/01/17 08:23 Cozaar PO 50 mg DAILY [facility] Administration Intake and Output 10/31/17 11/01/17 11/01/17 22:59 06:59 14:59 Intake Total 240 800 180 Balance 240 800 180 Intake: IV 800 Sodium Chloride 0.9% 1, 800 000 ml @ 100 mls/hr IV . Q10H [facility] Rx#:[id number] Oral 240 180 Other: Voiding Method Toilet Toilet Toilet # Voids 3 Weight 93.4 kg 10/30/17 13:21 10/30/17 13:21
[2017-11-01 11:58] LABS: Glucose,Whole Blood 249 mg/dL (75-99)
[2017-11-01] MEDS: CHOLECALCIFEROL 1,000 UNIT TAB PO SCH (12:13)
[2017-11-01 16:52] LABS: Glucose,Whole Blood 153 mg/dL (75-99)
[2017-11-01] MEDS: ATORVASTATIN 40 MG TAB PO SCH (20:53)
[2017-11-01 20:54] LABS: Glucose,Whole Blood 236 mg/dL (75-99)
[2017-11-02 06:01] LABS: Glucose,Whole Blood 214 mg/dL (75-99)
[2017-11-02] MEDS: glipiZIDE 10 MG TAB PO SCH (06:07)
[2017-11-02] MEDS: LEVOTHYROXINE 125 MCG TAB PO SCH (06:08)
[2017-11-02] MEDS: INSULIN ASPART 100 UNIT/ML 1 ML 10 ML VIAL SQ SCH ×4 (06:26→20:50)
[2017-11-02] MEDS ORDERED: SODIUM CHLORIDE 0.9% 500 ML IV ONE (08:14)
[2017-11-02 11:05] VITALS: BMI 33.8
--- NOTE | 2017-11-02 11:07 | P.PCN ---
Preoperative Diagnosis: Indication Recurrent dizzy spells and syncope Diabetic patient type II Hypertensive, on losartan 50 g daily as well as hydrochlorothiazide 25 g daily Normal 2-D echo recently Recurrent episodes of dizziness and weakness Twelve-lead ECG Normal sinus rhythm normal cardiac intervals normal OK narrow QRS normal QT interval noted waves Tilt table test per protocol Baseline blood pressure 142/74 limit his mercury Baseline heart rate 62 beats a minute patient was tilted upright at night with 70 per protocol there was any major drop in blood pressure 215/67 mmHg. Lowest blood pressure recorded 108/ 69 mmHg. She felt lightheaded immediately upon standing up as well as later when her blood pressure dropped 104/65 mmHg pulse rate remained in the 70s Patient is laid supine her blood pressure improved 137/71 mmHg Impression Likely mild orthostatic hypotension syndrome Suggest Stop diuretics and watch blood pressure on losartan 50 mg by mouth daily
[2017-11-02] MEDS: FAMOTIDINE 20 MG TAB PO SCH (11:11)
[2017-11-02] MEDS: ASPIRIN 81 MG PO SCH (11:11)
[2017-11-02] MEDS: HYDROCHLOROTHIAZIDE 25 MG TAB PO SCH (11:11)
[2017-11-02] MEDS: CHOLECALCIFEROL 1,000 UNIT TAB PO SCH (11:11)
[2017-11-02] MEDS: LOSARTAN 50 MG TAB PO SCH (11:12)
[2017-11-02] MEDS: INSULIN DETEMIR 100 UNIT/ML 10 ML VIAL SQ SCH (11:12)
[2017-11-02 11:27] LABS: Glucose,Whole Blood 190 mg/dL (75-99)
--- NOTE | 2017-11-02 12:07 | ECHOF ---
Referral Reason:dizzy MEASUREMENTS -------- HEIGHT: 165.1 cm WEIGHT: 92.1 kg BP: 134/65 RVIDd: 2.8 cm (< 3.3) IVSd: 1.1 cm (0.6 - 1.1) LVIDd: 3.6 cm (3.9 - 5.3) LVPWd: 1.1 cm (0.6 - 1.1) IVSs: 1.5 cm LVIDs: 2.5 cm LVPWs: 1.6 cm LA Diam: 2.6 cm (2.7 - 3.8) LAESV Index (A-L): 12.31 ml/m Ao Diam: 2.7 cm (2.0 - 3.7) AV Cusp: 1.9 cm (1.5 - 2.6) MV EXCURSION: 14.642 mm (> 18.000) MV EF SLOPE: 45 mm/s (70 - 150) EPSS: 0.4 cm MV E Tim: 0.76 m/s MV DecT: 286 ms MV A Tim: 0.72 m/s MV E/A Ratio: 1.05 RAP: 5.00 mmHg RVSP: 21.70 mmHg FINDINGS -------- Sinus rhythm. This was a technically adequate study. The left ventricular size is normal. There is borderline concentric left ventricular hypertrophy. Overall left ventricular systolic function is normal with, an EF between 55 - 60 %. The right ventricle is normal in size. Normal LA size by volume 22+/-6 ml/m2. The right atrium is normal in size. 3 ml of Lumason was utilized for enhancement of images. The aortic valve is trileaflet and appears structurally normal. The mitral valve is normal. Mild tricuspid regurgitation present. Right ventricular systolic pressure is normal at < 35 mmHg. The pulmonic valve was not well visualized. The aortic root size is normal. IVC Not well visulized. There is no pericardial effusion. CONCLUSIONS -------- 1. Sinus rhythm. 2. This was a technically adequate study. 3. The left ventricular size is normal. 4. There is borderline concentric left ventricular hypertrophy. 5. Overall left ventricular systolic function is normal with, an EF between 55 - 60 %. 6. The right ventricle is normal in size. 7. Normal LA size by volume 22+/-6 ml/m2. 8. The right atrium is normal in size. 9. 3 ml of Lumason was utilized for enhancement of images. 10. The aortic valve is trileaflet and appears structurally normal. 11. The mitral valve is normal. 12. Mild tricuspid regurgitation present. 13. Right ventricular systolic pressure is normal at < 35 mmHg. 14. The pulmonic valve was not well visualized. 15. The aortic root size is normal. 16. IVC Not well visulized. 17. There is no pericardial effusion. BEHAVIORAL HEALTH TECH: Ghada Nieves RDCS
--- NOTE | 2017-11-02 12:24 | P.PN ---
Subjective Progress Note Date: 11/02/17 Mrs. Sahu is a pleasant 62-year-old female past medical history significant for hypertension, COPD, diabetes mellitus, gastroesophageal reflux disease and dyslipidemia. She denies history of coronary artery disease and is never seen a head of loss prevention for any reason. We've been asked to see her in consultation for presyncope. She presented to the hospital 2 days ago with symptoms of dizziness, increased weakness, shortness of breath and diaphoresis. 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 His been increasingly warm recently she feels as though she has been getting extremely diaphoretic associated with increased activity. She states she gets very dizzy intermittently as well. She feels as if she is lightheaded not that the room is spinning. She denies symptoms of chest pain, palpitations associated with these symptoms. She is treated for hypertension her primary care physician. She has also been seen in consultation for neurology and they have discussed these episodes as a TIA. CT of the brain as well as MRI failed to reveal any evidence of acute stroke. She has had no further symptoms since admission. Blood pressures have been fluctuating since admission lowest at 107/57 with highest 190/82. 11/02/2017 Patient underwent a tilt table test today. Which was read and interpreted by Dr. Martin, positive tilt table, likely mild orthostatic hypotension syndrome. Diuretics have been discontinued, we'll continue to monitor blood pressure. She feels well overall, she's been ambulating in the hallway without any difficulty. She may be able to be discharged home from our perspective to follow-up with Dr. Winter in the office in 2 weeks. Objective - Vital Signs Vital signs: Vital Signs Temp 96.8 F L 11/02/17 07:45 Pulse 61 11/02/17 04:00 Resp 16 11/02/17 07:45 BP 132/66 11/02/17 07:45 Pulse Ox 97 11/02/17 07:45 Intake & Output 11/01/17 11/02/17 11/02/17 18:59 06:59 18:59 Intake Total 760 240 50 Balance 760 240 50 Weight 92.3 kg 92.3 kg Intake: IV 400 50 Sodium Chloride 0.9% 1, 400 000 ml @ 100 mls/hr IV . Q10H [facility] Rx#:[id number] Oral 360 240 Other: Voiding Method Toilet Toilet # Voids 3 - Exam Blood pressure 150/67 heart rate 68 afebrile maintaining oxygen saturation on room air GENERAL: This is a 62-year-old female in no apparent distress at the time of my examination. HEENT: Head is atraumatic, normocephalic. Pupils are equal, round. Sclerae anicteric. Conjunctivae are clear. Mucous membranes of the mouth are moist. Neck is supple. There is no jugular venous distention. No carotid bruit is heard. LUNGS: Clear to auscultation no wheezes, rales or rhonchi. No chest wall tenderness is noted on palpation or with deep breathing. HEART: Regular rate and rhythm without murmurs, rubs or gallops. S1 and S2 heard. ABDOMEN: Soft, nontender. Bowel sounds are heard. No organomegaly noted. EXTREMITIES: No evidence of peripheral edema and no calf tenderness noted. VASCULAR: Radial and dorsalis pedis pulses palpated, no evidence of clubbing. NEUROLOGIC: Patient is awake, alert and oriented x3. - Labs CBC & Chem 7: 10/30/17 13:21 10/30/17 13:21 Labs: Abnormal Lab Results - Last 24 Hours (Table) 11/01/17 11/01/17 11/02/17 Range/Units 16:42 20:52 06:00 POC Glucose (mg/dL) 153 H 236 H 214 H (75-99) mg/dL 11/02/17 Range/Units 11:23 POC Glucose (mg/dL) 190 H (75-99) mg/dL Assessment and Plan Plan: Assessment and plan #1 dizziness, status post tilt table test of today, she likely has orthostatic hypotension. We will continue to hold diuretics #2 hypertension #3 diabetes #4 hyperlipidemia #5 history of DVT #6 COPD #7 hypothyroidism Plan Echocardiogram with Doppler study was performed which revealed an ejection fraction of 55-60%. From cardiology's perspective, patient may be able to be discharged home today to follow-up with Dr. Martin in the office 2 weeks post discharge. DNP note has been reviewed, I agree with a documented findings and plan of care. Patient was seen and examined.
[2017-11-02] MEDS: ACETAMINOPHEN TAB 325 MG TAB PO PRN ×2 (13:02)
[2017-11-02 16:23] LABS: Glucose,Whole Blood 293 mg/dL (75-99)
--- NOTE | 2017-11-02 17:36 | PN ---
PROGRESS NOTE DATE OF SERVICE: 11/02/17. This patient is seen, evaluated and examined while covering for Dr. Jose Manuel Moon. This is a 62-year-old female who was admitted to the hospital with dizziness, lightheadedness. The patient underwent a tilt-table testing which was positive, likely had orthostatic hypotension. The patient is being closely monitor and observe at this point in time. Other issues include problems associated with hypothyroidism, hypertension, type 2 diabetes mellitus and hypertensive cardiovascular disease. Due to ongoing symptoms, patient is still being monitored and observed. Last set of vitals include blood pressure is 157/74, 16, pulse 68, temperature 97, saturation 98% on room air. HEENT: Atraumatic, normocephalic. Pharynx is clear. Narrow pharyngeal opening is present. Neck is supple without lymphadenopathy, jugular venous distention or carotid bruit. Lungs: Bilateral air entry is present without significant rales, rhonchi or rub. Heart: Regular rate and rhythm, S1, S2 audible. Abdomen is soft. No rebound, rigidity. Extremities: +1 pedal pulses. NEUROLOGICAL EXAMINATION: Awake and alert. No focal neurological deficit. IMPRESSION: 1. Recurrent syncope. 2. Orthostatic hypotension. 3. Intermittent episodes of dizziness and lightheadedness. Patient is being closely monitored. 4. Type 2 diabetes mellitus, uncontrolled. 5. Chronic obstructive pulmonary disease. 6. Gastroesophageal reflux disease. 7. Hypertension, hypertensive cardiovascular disease. 8. Hypothyroidism. PLAN: Recommendation is continue supportive care. Follow clinical course closely. Increase activity as tolerated. Monitor closely for symptoms. If she remains stable, possible discharge in next 24 hours. MMODL / IJN: [id number] /
[2017-11-02] MEDS: ATORVASTATIN 40 MG TAB PO SCH (20:43)
[2017-11-02 20:48] LABS: Glucose,Whole Blood 303 mg/dL (75-99)
[2017-11-02 21:23] VITALS: RESP 18
[2017-11-03 06:16] LABS: Glucose,Whole Blood 141 mg/dL (75-99)
[2017-11-03] MEDS: glipiZIDE 10 MG TAB PO SCH (06:19)
[2017-11-03] MEDS: LEVOTHYROXINE 125 MCG TAB PO SCH (06:19)
[2017-11-03] MEDS: INSULIN ASPART 100 UNIT/ML 1 ML 10 ML VIAL SQ SCH ×3 (06:30→16:59)
[2017-11-03] MEDS: LOSARTAN 50 MG TAB PO SCH (08:32)
[2017-11-03] MEDS: ASPIRIN 81 MG PO SCH (08:32)
[2017-11-03] MEDS: INSULIN DETEMIR 100 UNIT/ML 10 ML VIAL SQ SCH (08:35)
[2017-11-03] MEDS ORDERED: FAMOTIDINE 20 MG TAB PO SCH (09:00)
[2017-11-03 11:21] LABS: Glucose,Whole Blood 339 mg/dL (75-99)
--- NOTE | 2017-11-03 11:34 | P.PN ---
Subjective Patient is doing well. She is ambulating in the hallways. Blood pressures in the normal range no dizziness no lightheadedness no loss of consciousness She was admitted with an episode of presyncope/syncope. She underwent a tilt table test which showed a significant drop in her blood pressure that persisted throughout tilt table test consistent with a dysautonomic response Hydrochlorothiazide was discontinued. She is diabetic type II and has hypertension and currently she is on Cozaar 50 mrem by mouth daily Today her blood pressure is well controlled she denies any chest discomfort dizziness lightheadedness Blood pressure 132/67 144/75 and 130/62 mmHg pulse rate in the 70s afebrile Breath sounds are clear no rhonchi no crackles Heart sounds S1 and S2 are normal no murmurs or gallops or rub Abdomen is soft Extremities warm no edema impression Essential hypertension Type 2 diabetes Likely dysautonomic response exacerbated by diuretics LDL 122, total cholesterol 183, triglycerides 121 and HDL 37 Normal TSH BUN 36 creatinine 1.2 to GFR 47 Suggest Treat hypertension with losartan only and avoid diuretics Low salt diet Weight reduction Diabetes type [address] Moon Continue atorvastatin 40 mg by mouth daily and a baby aspirin Gradual weight reduction Objective - Vital Signs Vital signs: Vital Signs Temp 98 F 11/03/17 08:30 Pulse 76 11/03/17 08:30 Resp 18 11/03/17 08:30 BP 113/62 11/03/17 08:30 Pulse Ox 93 L 11/03/17 08:30 Intake & Output 11/02/17 11/03/17 11/03/17 18:59 06:59 18:59 Intake Total 466 240 Output Total 0 Balance 466 240 0 Weight 92.3 kg 92.4 kg Intake: IV 50 Oral 416 240 Output: Urine 0 Other: Voiding Method Toilet # Voids 1 2 - Labs CBC & Chem 7: 10/30/17 13:21 10/30/17 13:21 Labs: Abnormal Lab Results - Last 24 Hours (Table) 11/02/17 11/02/17 11/03/17 Range/Units 16:21 20:46 06:13 POC Glucose (mg/dL) 293 H 303 H 141 H (75-99) mg/dL 11/03/17 Range/Units 11:19 POC Glucose (mg/dL) 339 H (75-99) mg/dL
[2017-11-03] MEDS: CHOLECALCIFEROL 1,000 UNIT TAB PO SCH (11:52)
[2017-11-03] MEDS: ACETAMINOPHEN TAB 325 MG TAB PO PRN (12:23)
[2017-11-03 16:15] VITALS: BP 134/82; PULSE 71; TEMP 97.4
[2017-11-03 16:44] LABS: Glucose,Whole Blood 215 mg/dL (75-99)
--- NOTE | 2017-11-03 20:07 | P.PN ---
Subjective Progress Note Date: 11/03/17 This patient is a 62-year-old right-handed white female who is being evaluated for altered mental status and recurrent near syncope. Patient seems to be doing somewhat better today as compared to yesterday. She was able to go for MRI of the brain today for further evaluation. MRI report was reviewed today and does reveal both punctate and confluent periventricular white matter changes likely representing small vessel ischemic changes. There was no acute intracranial abnormality detected. There was no evidence of acute stroke. There is a probable ganglion cyst related to the right TMJ joint. We reviewed the results of the MRI today with the patient in detail. We have reassured her that based on the MRI of the brain there is no evidence of acute stroke for this patient. We are waiting further input and recommendations from cardiology regarding her recurrent near syncopal episodes. Patient may require a reveal monitor for long-term cardiac monitoring. We will await further recommendations from cardiology. We will review her EEG didn't which was completed today as well to rule out any possibility of underlying seizure disorder which seems to be less likely given her history. Her EEG was reviewed and fails to reveal any evidence of epileptiform discharges. She is being evaluated by cardiology for orthostatic hypotension. She did undergo a tilt table test which did show a significant drop in her blood pressure suggesting a distal autonomic response. She was advised to avoid the use of diuretics. She is to follow low-sodium diet. She will follow-up with cardiology in the outpatient clinic. The patient otherwise seems to be doing quite well today. She is being considered for possible discharge home later today. Would recommend tight control of her blood pressure and her diabetes mellitus as risk factors for recurrent stroke. Her overall prognosis at this time remains guarded. Overall prognosis at this time remains guarded. Objective - Vital Signs Vital signs: Vital Signs Temp 97.4 F L 11/03/17 16:10 Pulse 71 11/03/17 16:10 Resp 18 11/03/17 16:10 BP 134/82 11/03/17 16:10 Pulse Ox 96 11/03/17 16:10 Intake & Output 11/03/17 11/03/17 11/04/17 06:59 18:59 06:59 Intake Total 240 720 Output Total 0 Balance 240 720 Weight 92.4 kg Intake: Oral 240 720 Output: Urine 0 Other: Voiding Method Toilet # Voids 2 1 - Exam Physical examination: PHYSICAL EXAMINATION: Patient is resting comfortably in bed. VITAL SIGNS: Blood pressure is [134/82]. Heart rate is [71]. Respiration is [18] . Temperature is [97.4]. HEENT: Head is atraumatic, neck is supple, there were no carotid bruits. CHEST: Lungs are clear to auscultation and percussion. CARDIAC: S1, S2 normal rate and rhythm. There is no murmur. ABDOMEN: Soft and nontender. Bowel sounds are present. EXTREMITIES: There is no pedal edema. Peripheral pulses are present. Neurological examination: Patient's neurological examination is unchanged from yesterday. - Labs CBC & Chem 7: 10/30/17 13:21 10/30/17 13:21 Labs: Abnormal Lab Results - Last 24 Hours (Table) 11/02/17 11/03/17 11/03/17 Range/Units 20:46 06:13 11:19 POC Glucose (mg/dL) 303 H 141 H 339 H (75-99) mg/dL 11/03/17 Range/Units 16:42 POC Glucose (mg/dL) 215 H (75-99) mg/dL Assessment and Plan (1) TIA (transient ischemic attack) Status: Acute Code(s): G45.9 - TRANSIENT CEREBRAL ISCHEMIC ATTACK, UNSPECIFIED SNOMED Code(s): 369887266 (2) Metabolic encephalopathy Status: Acute Code(s): G93.41 - METABOLIC ENCEPHALOPATHY SNOMED Code(s): 15075421 (3) Memory loss Status: Acute Code(s): R41.3 - OTHER AMNESIA SNOMED Code(s): 844607948 (4) Diabetes mellitus Status: Chronic Code(s): E11.9 - TYPE 2 DIABETES MELLITUS WITHOUT COMPLICATIONS SNOMED Code(s): 21252942 Plan: This patient is a 62-year-old right-handed white female who was admitted to Hospital today for evaluation of near syncope and dizziness. Patient states she has been having multiple falls at home due to unsteadiness and dizziness. The symptoms have been ongoing for the past 1 month. Patient states she feels lightheaded and then becomes diaphoretic just prior to these events. 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 She does stand most of the day and has had near syncopal episodes while working. She states she also becomes very warm just prior to these events. Her clinical history suggesting possibility of near syncope and would warrant a cardiology consultation for her. She denies any previous history of seizures or head trauma in the past. She has a known history of diabetes mellitus but denies any history of hypoglycemic reactions. We have recommended that she have her hemoglobin A1c checked during this admission as well. Patient also has been having symptoms of poor memory loss and difficulty concentrating at work as well as at home. Exact etiology of this is unknown. She was brought into the emergency room today for further evaluation. She was seen in the ER by Dr. Urbina. She was sent for a computed tomography scan of the brain which revealed degenerative and nonspecific white matter changes with remote microvascular ischemia. 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 The patient denies any previous history of TIA or stroke. She is now been admitted and neurology has been consulted for further evaluation and recommendations. The patient was able to complete MRI of the brain today. Results are as noted above. MRI fails to reveal any evidence of acute stroke. She is being evaluated by cardiology for recurrent syncope and near-syncope symptoms. Patient underwent tilt table testing yesterday and she is positive for orthostatic hypotension and possible underlying dysautonomic response. Cardiology is given recommendations for her. We will await their final recommendations. In the meantime we will continue close neurological follow-up for this patient during this admission. Patient is being considered for discharge home later today. She may follow-up in the outpatient neurology clinic as needed in 3-4 weeks. Her overall prognosis at this time remains guarded.
--- NOTE | 2017-11-23 05:46 | DS ---
DISCHARGE SUMMARY DATE OF ADMISSION: 10/30/2017. DATE OF DISCHARGE: 11/03/2017. DISCHARGE MEDICATIONS: 1. Synthroid 125 mcg daily. 2. Vitamin D 2000 units daily. 3. Pepcid 20 mg b.i.d. 4. Glucotrol 10 mg daily. 5. HydroDIURIL 25 mg daily. 6. Ecotrin 81 mg daily. 7. Cozaar 50 mg daily. 8. Lipitor 40 mg daily. CONDITION: Stable. PROGNOSIS: Guarded. Ambulate as tolerated. DISCHARGE DIAGNOSES: HOSPITAL COURSE OF EVENTS: This is a 62 -year-old white female came to the hospital for possible TIA versus stroke. She was seen by parts administrator, neurologist, and near syncope. Neurology saw her. MRI of the brain shows small vessel ischemic changes. There was no acute stroke. She had hypertension. Cardiac monitoring was done, she had orthostatic hypotension. Tilt-table test which it showed significant drop in her blood pressure suggesting that this is autonomic response. She was advised to avoid diuretics and take a low-sodium diet. Follow up with Cardiology as an outpatient. Prognosis is guarded. She was cleared by Neurology and Cardiology on discharge. MMODL / IJN: [id number] /
== END 2017-11-03 18:55 | disposition home or self-care (01) ==
LOC: EC 12:29 → 6SEL 14:49
PROVIDERS: ADMIT Family Medicine; ATTEND Family Medicine
DX: I95.1 Orthostatic hypotension (principal); G93.41 Metabolic encephalopathy; E11.65 Type 2 diabetes mellitus with hyperglycemia; R61 Generalized hyperhidrosis; E03.9 Hypothyroidism, unspecified; H70.10 Chronic mastoiditis, unspecified ear; K21.9 Gastro-esophageal reflux disease without esophagitis; J44.9 Chronic obstructive pulmonary disease, unspecified; I11.9 Hypertensive heart disease without heart failure; E78.5 Hyperlipidemia, unspecified; M19.90 Unspecified osteoarthritis, unspecified site; Z79.84 Long term (current) use of oral hypoglycemic drugs; Z79.82 Long term (current) use of aspirin; Z79.890 Hormone replacement therapy; Z79.899 Other long term (current) drug therapy; Z87.01 Personal history of pneumonia (recurrent); Z86.14 Personal history of Methicillin resistant Staphylococcus aureus infection; Z90.710 Acquired absence of both cervix and uterus; Z90.89 Acquired absence of other organs; Z87.891 Personal history of nicotine dependence; Z86.718 Personal history of other venous thrombosis and embolism; Z91.81 History of falling; Z83.3 Family history of diabetes mellitus; Z82.49 Family history of ischemic heart disease and other diseases of the circulatory system; Z82.61 Family history of arthritis; Z81.8 Family history of other mental and behavioral disorders
CPT/HCPCS: 96361 ×2; 99285 ×2; 96374; 36415; 95819; 93005; 97116; 97162; 97165; 92610; 93660; 85379; 80061; 80053; 82550; 82553; 83735; 84100; 84443; 84484 ×2; 85025; 85610; 85730; 81001; 87086; 83036; 70450; 70551; G0378 ×5; C8929; J2060; Q9950; 93306

== ENCOUNTER → 2017-11-16 | Outpatient (CLI) | payer MEDICARE, OTHER ==
--- NOTE | 2017-11-16 15:47 | US ---
EXAMINATION TYPE: US carotid duplex BILAT DATE OF EXAM: 11/16/2017 COMPARISON: NONE CLINICAL HISTORY: R55 PRE SYNCOPE. doing work outside in the heat this summer she always fainted, no h/o stroke EXAM MEASUREMENTS: RIGHT: Peak Systolic Velocity (PSV) cm/sec ----- Right CCA: 77.3 ----- Right ICA: 104.0 ----- Right ECA: 98.2 ICA/CCA ratio: 1.3 RIGHT: End Diastole cm/sec ----- Right CCA: 31.8 ----- Right ICA: 42.5 ----- Right ECA: 13.5 LEFT: Peak Systolic Velocity (PSV) cm/sec ----- Left CCA: 66.6 ----- Left ICA: 137.6 ----- Left ECA: 98.5 ICA/CCA ratio: 2.1 LEFT: End Diastole cm/sec ----- Left CCA: 23.2 ----- Left ICA: 35.3 ----- Left ECA: 12.8 VERTEBRALS (direction of flow): Right Vertebral: Antegrade Left Vertebral: Antegrade Rhythm: Normal IMPRESSION: Mild heterogeneous plaque at bilat bulbs with no significant stenosis seen. Criteria for Assigning % of Stenosis / Diameter reduction (Estimation based on the indirect measurements of the internal carotid artery velocities (ICA PSV). 1. Normal (no stenosis)=ICA PSV < 125 cm/s: ratio < 2.0: ICA EDV<40 cm/s. 2. Less than 50% stenosis=ICA PSV < 125 cm/s: ratio < 2.0: ICA EDV<40 cm/s. 3. 50 to 69% stenosis=ICA PSV of 125 to 230 cm/s: ration 2.0 ? 4.0: ICA EDV 40-100 cm/s. 4. Greater than 70% stenosis to near occlusion= ICA PSV > 230 cm/s: ratio > 4.0: ICA EDV > 100 cm/s. 5. Near occlusion= ICA PSV velocities may be low or undetectable: variable ratio and ICA EDV. 6. Total occlusion=unable to detect flow.
== END ==
LOC: RADUSWWP 14:35
PROVIDERS: ATTEND Psychiatry & Neurology Neurology
DX: I70.90 Unspecified atherosclerosis (principal); R55 Syncope and collapse
CPT/HCPCS: 93880

== ENCOUNTER → 2018-01-08 | Outpatient (CLI) | payer MEDICARE, OTHER ==
[2018-01-08 16:52] LABS: Basophils % (A) 1 %; Eosinophils # (A) 0.3 k/uL (0-0.7); Eosinophils % (A) 4 %; HCT 37.9 % (34.0-46.0); HGB 12.4 gm/dL (11.4-16.0); Lymphocytes # (A) 2.2 k/uL (1.0-4.8); Lymphocytes % (A) 34 %; MCHC 32.7 g/dL (31.0-37.0); MCV 88.7 fL (80.0-100.0); Monocytes # (A) 0.3 k/uL (0-1.0); Monocytes % (A) 4 %; Neutrophils # (A) 3.7 k/uL (1.3-7.7); Neutrophils % (A) 57 %; Platelet Count 208 k/uL (150-450); RBC 4.28 m/uL (3.80-5.40); RDW 13.3 % (11.5-15.5); WBC 6.6 k/uL (3.8-10.6)
[2018-01-08 17:53] LABS: Appearance,Urine Clear (Clear); Bilirubin,Urine Negative (Negative); Blood,Urine Negative (Negative); Color,Urine Yellow; Glucose,Urine (UA) Trace (Negative); Ketones,Urine Negative (Negative); Leukocyte Esterase,Urine Negative (Negative); Mucus,Urine Rare /hpf; Nitrite,Urine Negative (Negative); Protein,Urine 2+ (Negative); RBC,Urine 1 /hpf (0-5); Specific Gravity,Urine 1.021 (1.001-1.035); Squamous Epithelial Cell,Urine 1 /hpf (0-4); Urobilinogen,Urine <2.0 mg/dL (<2.0); WBC,Urine 1 /hpf (0-5)
[2018-01-09 01:49] LABS: Anion Gap 5.6 mmol/L (4.00-12.00); Calcium 9.4 mg/dL (8.7-10.3); Carbon Dioxide 29.4 mmol/L (21.6-31.8); Magnesium 1.8 mg/dL (1.5-2.4); Phosphorus 3.1 mg/dL (2.4-5.1); Potassium 4.6 mmol/L (3.5-5.5); Uric Acid 4.6 mg/dL (2.9-7.7)
[2018-01-09 01:55] LABS: Parathyroid Hormone Intact 93.5 pg/mL (14.0-72.0)
[2018-01-09 01:58] LABS: Vitamin D 25 Hydroxy 38.7 ng/mL (30.0-100.0)
[2018-01-09 02:44] LABS: Hemoglobin A1C 9.4 % (4.0-6.0)
== END | disposition home or self-care (01) ==
LOC: LABWHC1 16:30
PROVIDERS: ATTEND Nurse Practitioner Family
DX: D35.02 Benign neoplasm of left adrenal gland (principal); E11.49 Type 2 diabetes mellitus with other diabetic neurological complication; E61.1 Iron deficiency; E55.9 Vitamin D deficiency, unspecified; D64.9 Anemia, unspecified; M10.9 Gout, unspecified; N39.0 Urinary tract infection, site not specified
CPT/HCPCS: 36415; 80048; 81001; 82306; 82728; 83036; 83540; 83550; 83735; 83970; 84100; 84550; 85025

== ENCOUNTER → 2018-01-12 | Outpatient (CLI) | payer MEDICARE, OTHER ==
--- NOTE | 2018-01-12 16:02 | XR ---
EXAMINATION TYPE: XR lumbar spine 2 or 3V DATE OF EXAM: 01/12/2018 CLINICAL HISTORY: pain TECHNIQUE: Three views of the lumbar spine are submitted. COMPARISON: None. FINDINGS: There are 5 lumbar type vertebral bodies identified. The lumbar spine shows satisfactory alignment w ithout evidence of acute fracture or dislocation. Vertebral body heights are within normal limits. Moderate degenerative disc space narrowing noted throughout. Grade 1 anterolisthesis L3 on L4 of 7.2 mm. The overlying soft tissue appears unremarkable. IMPRESSION: No acute fracture or dislocation is seen in the lumbar spine. ICD 10 NO FRACTURE, INITIAL EVALUATION
== END | disposition home or self-care (01) ==
LOC: RADXRMAIN 15:36
PROVIDERS: ATTEND Family Medicine
DX: M54.16 Radiculopathy, lumbar region (principal)
CPT/HCPCS: 72100

== ENCOUNTER → 2018-01-26 | Outpatient (CLI) | payer MEDICARE ==
[2018-01-26 16:58] LABS: Basophils # (A) 0.1 k/uL (0-0.2); Basophils % (A) 1 %; Eosinophils # (A) 0.3 k/uL (0-0.7); Eosinophils % (A) 4 %; HCT 38.3 % (34.0-46.0); HGB 12.5 gm/dL (11.4-16.0); Lymphocytes # (A) 2.1 k/uL (1.0-4.8); Lymphocytes % (A) 30 %; MCH 28.6 pg (25.0-35.0); MCHC 32.7 g/dL (31.0-37.0); MCV 87.6 fL (80.0-100.0); Mean Platelet Volume 8.1; Monocytes # (A) 0.3 k/uL (0-1.0); Monocytes % (A) 5 %; Neutrophils # (A) 4.3 k/uL (1.3-7.7); Neutrophils % (A) 60 %; Platelet Count 209 k/uL (150-450); RBC 4.38 m/uL (3.80-5.40); RDW 13.1 % (11.5-15.5); WBC 7.2 k/uL (3.8-10.6)
[2018-01-27 04:34] LABS: Albumin 4.1 g/dL (3.80-4.90); Albumin/Globulin Ratio 1.78 (1.20-2.10); Anion Gap 8.1 mmol/L (4.00-12.00); Calcium 8.9 mg/dL (8.7-10.3); Carbon Dioxide 27.9 mmol/L (21.6-31.8); Globulin 2.3 g/dL (2.1-3.7); LDL Cholesterol,Calculated 115.8 mg/dL (0.0-131.0); Potassium 4.4 mmol/L (3.5-5.5); Total Bilirubin 0.4 mg/dL (0.3-1.2); Total Protein 6.4 g/dL (6.2-8.2); VLDL Calculation 24.2 mg/dL (5.00-40.00)
[2018-01-27 05:04] LABS: Hemoglobin A1C 9.2 % (4.0-6.0)
== END | disposition home or self-care (01) ==
LOC: LABWHC1 16:22
PROVIDERS: ATTEND Family Medicine
DX: I10 Essential (primary) hypertension (principal); Z79.899 Other long term (current) drug therapy
CPT/HCPCS: 36415; 80053; 80061; 82043; 82570; 83036; 84443; 85025

== ENCOUNTER → 2018-03-10 | Outpatient (CLI) | payer MEDICARE ==
--- NOTE | 2018-03-14 18:25 | EEG ---
ELECTROENCEPHALOGRAM REPORT 62-year-old female. ATTENDING PHYSICIAN: Dr. Cherry. INDICATIONS: 62-year-old female with vertigo began in October 2017, sudden onset, overall improving. The dizziness comes in spells which vary in frequency. Dizziness or imbalance can be triggered by positional changes such as going from a lying to a seated position, looking up or head back position, bending over head down position, moving of the head. The patient has difficulty with hearing bilaterally and ringing in the ears bilaterally, which is pulsating and fullness in the right ear. The dizziness can be associated with lightheadedness or headaches and sometimes nausea with blurred vision. VNG FINDINGS: SACCADES: Shows intact peak velocities accuracies and latencies. GAZE TEST: Gaze with fixation shows no nystagmus in any of the positions of gaze including centrally with vision denied. SINUSOIDAL TRACKING: Tracking shows no break-ups. OKN TEST: Optokinetic nystagmus shows no significant asymmetry. POSITION TEST: Static position testing in 6 different positions including sitting, supine, head right, head left, right side and left side shows no nystagmus. KENAN-HALLPIKE TEST: Kenan-Hallpike maneuvers are not performed due to neck pain. CALORIC: Caloric testing shows bilateral caloric weakness. IMPRESSION: Vestibulopathy could not be determined due to possible bilateral caloric weakness. Another test such as the head thrust test or if available active and passive rotation testing is required to confirm the presence of bilateral vestibular dysfunction. Other features of this VNG study are unremarkable. No signs for central nervous system dysfunction. MMODL / IJN: [id number] /
== END | disposition home or self-care (01) ==
LOC: NEUROMAIN 08:39
PROVIDERS: ATTEND Otolaryngology
DX: R42 Dizziness and giddiness (principal)
CPT/HCPCS: 92537; 92540

== ENCOUNTER → 2018-06-18 | Outpatient (CLI) | payer MEDICARE, OTHER ==
--- NOTE | 2018-06-18 14:54 | MR ---
EXAMINATION TYPE: MR brain wo/w con DATE OF EXAM: 06/18/2018 COMPARISON: MRI brain October 31, 2017. HISTORY: Abnormal MRI TECHNIQUE: Multiplanar, multisequence images of the brain and brainstem is performed without and with IV contras t, utilizing 10 mL intravenous Gadavist . FINDINGS: Diffusion weighted images demonstrate no evidence of a recent infarct or other diffusion ab normality. There is no worrisome extra-axial fluid collection. Persistent ventricular and sulcal pro minence. Persistent multifocal areas of T2 hyperintensity throughout the superficial, deep, and periv entricular white matter. No significant change from most recent prior. Midline structures demonstrate normal morphology. The craniocervical junction appears within normal limits. Post contrast images demonstrate no abnormal enhancement. The dural venous sinuses appear pa tent. The visualized sinuses are clear and the globes are intact. There is stable 7 mm thin-walled cy stic lesion near right TMJ presumed ganglion cyst axial image 6. Nasal septum remains deviated to lef t of midline. IMPRESSION: Persistent mild diffuse cerebral atrophy and moderate to borderline severe chronic small vessel ischemic change. No suspicious enhancement. No significant change from most recent MRI.
== END ==
LOC: RADMRIMAIN 13:53
PROVIDERS: ATTEND Psychiatry & Neurology Neurology
DX: G31.9 Degenerative disease of nervous system, unspecified (principal); I67.82 Cerebral ischemia
CPT/HCPCS: 70553; A9585

== ENCOUNTER → 2018-07-01 | Outpatient (CLI) | payer MEDICARE ==
--- NOTE | 2018-07-01 21:07 | CONS ---
CONSULTATION DATE OF SERVICE: 07/01/2018 63-year-old lady has been evaluated in the sleep center for possible obstructive sleep apnea-hypopnea syndrome. HISTORY OF PRESENT ILLNESS/SLEEP WAKE EVALUATION: Patient usually sleeps from around 4 or 5 am until 9 a.m. and then she sleeps on and off for the whole day. [place] Sleepiness Scale increased to 11. She does have problem with falling asleep. She wakes up from sleep several times with nocturia and dry mouth and sweating. After sleep, she wakes up tired, has difficulties to pay attention, falling asleep during the day, worries about her sleep, has problem with the memory, concentration and irritability. PAST MEDICAL HISTORY: Positive for hypothyroidism, diabetes mellitus, hypertension, fibromyalgia, hyperlipidemia, acid reflux, episodes of dizziness. MEDICATIONS: Glipizide, levothyroxine, famotidine, metformin, tramadol, Lyrica, atorvastatin, cyclobenzaprine, , Lantus, losartan, aspirin, baby aspirin, magnesium supplement. SOCIAL HISTORY: Positive for smoking in the past, quit 24 years ago. Alcohol consumption, she stopped using 20 years ago. FAMILY HISTORY: Hypertension, heart problems, stroke, arthritis, emphysema, headaches, acid reflux, diabetes, thyroid problems and mental illness. PHYSICAL EXAM: lady without distress. BP 151/90, HR 76, RR 18. Height 5 feet 3 inches and 1/3 inches. Weight 203 pounds. Body mass index 35.6, temperature 98.4, oxygen saturation at room air 94%. Oropharynx low position of soft palate. Mallampati 4. Restriction of nasal breathing. Wide neck is 17 inches in circumference. Neck Supple, no JVD. Thyroid is not palpable. LUNGS Clear to percussion and to auscultation. Good air exchange. No wheezing or rhonchi. HEART S1, S2 regular. No murmurs, gallops, or rubs. ABDOMEN: Obese. Soft and nontender. Bowel sounds are present. No organomegaly appreciated. EXTREMITIES: Very minimal up to 1+ ankle edema. BOILER OUT Awake, alert, and oriented X3. Cranial nerves 2 to 7 intact. There is no fasciculation or atrophy. noted. No focal deficits observed. IMPRESSION: 1. History of snoring, awakenings from sleep, extremely low position of soft palate, wide neck, excessive daytime sleepiness, obstructive sleep apnea-hypopnea syndrome. 2. Obesity, body mass index 35.6. 3. Hypertension. 4. Diabetes mellitus. 5. Hypothyroidism. 6. History of fibromyalgia. 7. Hyperlipidemia. 8. Acid reflux. 9. Episodes of dizziness, sometimes after awakenings in the morning. 10.Sleep delay syndrome. PLAN: 1. Polysomnography for evaluation of patient's breathing during sleep. 2. CPAP/BiPAP titration if sleep study confirms obstructive sleep apnea-hypopnea syndrome. 3. Preferable position during sleep on the side. 4. No driving if patient feels any sleepiness. 5. I will see patient for follow up visit to explain results of testing and following plan. 6. As much as possible bright light exposure in the morning, preferably sunlight to help her to move sleep schedule to evaluate time also. Thank you very much for referring this patient for consultation. Sincerely, Juan Carlos Baez MD, PhD, FAASM Diplomat of [employer] [facility] [place] MMODL / IJN: [id number] /
== END | disposition home or self-care (01) ==
LOC: SLEEP 14:59
PROVIDERS: ATTEND Internal Medicine
DX: G47.33 Obstructive sleep apnea (adult) (pediatric) (principal); E66.9 Obesity, unspecified; I10 Essential (primary) hypertension; E11.9 Type 2 diabetes mellitus without complications; E03.9 Hypothyroidism, unspecified; M79.7 Fibromyalgia; E78.5 Hyperlipidemia, unspecified; K21.9 Gastro-esophageal reflux disease without esophagitis; R42 Dizziness and giddiness; G47.21 Circadian rhythm sleep disorder, delayed sleep phase type; Z79.84 Long term (current) use of oral hypoglycemic drugs; Z79.4 Long term (current) use of insulin; Z79.82 Long term (current) use of aspirin; Z79.891 Long term (current) use of opiate analgesic; Z87.891 Personal history of nicotine dependence; Z68.35 Body mass index [BMI] 35.0-35.9, adult
CPT/HCPCS: 99211

== ENCOUNTER → 2018-07-15 | Outpatient (CLI) | payer MEDICARE, OTHER ==
[2018-07-15 23:09] LABS: T4, Free (Free Thyroxine) 1.3 ng/dL (0.80-1.80)
== END | disposition home or self-care (01) ==
LOC: LABWHC1 15:49
PROVIDERS: ATTEND Psychiatry & Neurology Neurology
DX: R42 Dizziness and giddiness (principal)
CPT/HCPCS: 36415; 82607; 84439; 84443

== ENCOUNTER → 2018-07-20 | Outpatient (CLI) | payer MEDICARE, OTHER ==
[2018-07-20 14:11] LABS: Basophils % (A) 1 %; Eosinophils # (A) 0.2 k/uL (0-0.7); Eosinophils % (A) 3 %; HGB 12.1 gm/dL (11.4-16.0); Lymphocytes # (A) 2.3 k/uL (1.0-4.8); Lymphocytes % (A) 30 %; MCH 27.6 pg (25.0-35.0); MCHC 32.8 g/dL (31.0-37.0); MCV 84.4 fL (80.0-100.0); Mean Platelet Volume 8.2; Monocytes # (A) 0.3 k/uL (0-1.0); Monocytes % (A) 4 %; Neutrophils # (A) 4.7 k/uL (1.3-7.7); Neutrophils % (A) 61 %; Platelet Count 212 k/uL (150-450); RBC 4.39 m/uL (3.80-5.40); RDW 13.7 % (11.5-15.5); WBC 7.7 k/uL (3.8-10.6)
[2018-07-20 14:35] LABS: Appearance,Urine Clear (Clear); Bilirubin,Urine Negative (Negative); Blood,Urine Negative (Negative); Color,Urine Yellow; Glucose,Urine (UA) Negative (Negative); Ketones,Urine Negative (Negative); Leukocyte Esterase,Urine Small (Negative); Mucus,Urine Rare /hpf; Nitrite,Urine Negative (Negative); PH, Urine 6.5 (5.0-8.0); Protein,Urine 2+ (Negative); RBC,Urine 1 /hpf (0-5); Specific Gravity,Urine 1.023 (1.001-1.035); Squamous Epithelial Cell,Urine <1 /hpf (0-4); Urobilinogen,Urine <2.0 mg/dL (<2.0); WBC,Urine 7 /hpf (0-5)
[2018-07-21 00:45] LABS: Iron Saturation 18.39 (12.00-45.00)
[2018-07-21 00:52] LABS: Vitamin D 25 Hydroxy 25.2 ng/mL (30.0-100.0)
[2018-07-21 00:53] LABS: Anion Gap 7.8 mmol/L (4.00-12.00); Calcium 9.1 mg/dL (8.7-10.3); Carbon Dioxide 28.2 mmol/L (21.6-31.8); Magnesium 1.7 mg/dL (1.5-2.4); Phosphorus 4.1 mg/dL (2.4-5.1); Potassium 3.9 mmol/L (3.5-5.5); Uric Acid 5.2 mg/dL (2.9-7.7)
[2018-07-21 01:10] LABS: Hemoglobin A1C 9.3 % (4.0-6.0)
[2018-07-21 01:23] LABS: Parathyroid Hormone Intact 56.5 pg/mL (14.0-72.0)
== END ==
LOC: LABWHC1 12:43
PROVIDERS: ATTEND Nurse Practitioner Family
DX: E11.49 Type 2 diabetes mellitus with other diabetic neurological complication (principal); R80.9 Proteinuria, unspecified; E61.1 Iron deficiency; E55.9 Vitamin D deficiency, unspecified; E21.3 Hyperparathyroidism, unspecified; M10.9 Gout, unspecified
CPT/HCPCS: 36415; 80048; 81001; 82306; 82728; 83036; 83540; 83550; 83735; 83970; 84100; 84550; 85025

== ENCOUNTER → 2018-09-14 | Outpatient (CLI) | payer MEDICARE, OTHER ==
--- NOTE | 2018-09-14 17:05 | XR ---
Right hand HISTORY: Abscess, catheter bite 3 views of the right hand There is some underlying arthropathy noted. Alignment, joint spaces are maintained. Small ossific fra gment at the medial aspect of the distal interphalangeal joint likely related to underlying arthropat hy. Lucency present along the proximal aspect of the lateral portion of the middle phalanx of the thi rd digit may represent a geode. There is soft tissue swelling present. No periostitis to suggest oste omyelitis. IMPRESSION: Soft tissue swelling, correlate for cellulitis. Follow-up as indicated. Additional findin gs above.
== END | disposition home or self-care (01) ==
LOC: RADXRMAIN 14:59
PROVIDERS: ATTEND Family Medicine
DX: M19.041 Primary osteoarthritis, right hand (principal)

== ENCOUNTER → 2018-11-03 | Outpatient (CLI) | payer MEDICARE, OTHER ==
[2018-11-03 11:36] VITALS: BP 124/80; PULSE 78; RESP 18; TEMP 97.9; BMI 37.2
--- NOTE | 2018-11-03 13:32 | P.HPOB ---
History of Present Illness H&P Date: 11/03/18 Chief Complaint: The patient is here for her routine gynecologic exam and ma mmogram. This is a 63-year-old with an LMP of 2006. The patient is status post vaginal hysterectomy for benign reasons. The patient is without gynecologic complaints. She was last seen approximately 2 years ago and was found to have patches of non-pigmented skin on the hand and vulvar areas. I had recommended that she see a personal computer network engineer for suspected vitiligo. She has not seen a tika matologist for this. She denies any significant vulvar problems, but has infrequently had slight vulvar irritation. Review of Systems She is getting about 10 pounds over the last 2 years. She denies respiratory, cardiac, or G.I. problems. Past Medical History Past Medical History: COPD, Diabetes Mellitus, Deep Vein Thrombosis (DVT), GERD/Reflux, Osteoarthritis (OA), Pneumonia, Renal Disease, Thyroid Disorder Additional Past Medical History / Comment(s): Type II diabetes, hypothyroidism, diabetic foot neuropathy, DVT in 2016. 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 Genital HSV. History of Any Multi-Drug Resistant Organisms: MRSA Date of last positivie culture/infection: 2016 MDRO Source:: rt ist toe Past Surgical History: Appendectomy, Hernia Repair, Hysterectomy, Orthopedic S urgery, Tonsillectomy Additional Past Surgical History / Comment(s): LYSIS OF ABDOMINAL ADHESIONS. BILAT carpal tunnel surgery, syed fundaloplasty, COLONOSCOPY-2014, EGD w/bx 2017. laser eye sx. Left setup inject me as a teenager. Vaginal hysterectomy 2006. Past Anesthesia/Blood Transfusion Reactions: No Reported Reaction Additional Past Anesthesia/Blood Transfusion Reaction / Comment(s): PT HAD SWELLING OF FACE WITH ANESTHESIA DURING HYSTERECTOMY, BUT NO PROBLEMS SINCE. HAS NEVER RECEIVED BLOOD Past Psychological History: No Psychological Hx Reported Additional Psychological History / Comment(s): STATES THIS WAS YEARS AGO, NOT CURRENT. Smoking Status: Former smoker Past Alcohol Use History: Abuse, Heavy Additional Past Alcohol Use History / Comment(s): started smoking age 14(1969) and quit(1997) was smoking 1 ppd. Patient states that she is a recovering alcoholic. Patient stated she quit drinking 1993. Past Drug Use History: Marijuana Additional Drug Use History / Comment(s): Marijuana use as a teenager. Nothing recent. Additional History: She is single and is not seeing anybody at this time and has not been sexually active for many years. She is currently not working outside the home. - Past Family History Father Family Medical History: Congestive Heart Failure (CHF), Coronary Artery Disease (CAD), Myocardial Infarction ([place]) Additional Family Medical History / Comment(s): heart problems Mother Family Medical History: Coronary Artery Disease (CAD), Diabetes Mellitus, Osteoarthritis (OA) Additional Family Medical History / Comment(s): Mother committed suicide in 1973 Sister(s) Additional Family Medical History / Comment(s): Alcoholic. Medications and Allergies Home Medications Medication Instructions Recorded Confirmed Type Levothyroxine Sodium [Synthroid] 125 mcg PO DAILY 03/02/14 11/03/18 History Famotidine [Pepcid] 20 mg PO BID 30 Days #60 tablet 09/12/17 11/03/18 Rx Aspirin EC [Ecotrin Low Dose] 81 mg PO DAILY 10/01/17 11/03/18 History glipiZIDE [Glucotrol] 10 mg PO DAILY 10/01/17 11/03/18 History Albuterol Inhaler [Ventolin Hfa 2 puff INHALATION RT-Q6H PRN 10/30/17 11/03/18 History Inhaler] Losartan [Cozaar] 50 mg PO DAILY 10/30/17 11/03/18 History Acetaminophen Tab [Tylenol] 650 mg PO Q6HR PRN tab 11/03/17 11/03/18 Rx Atorvastatin [Lipitor] 40 mg PO HS tab 11/03/17 11/03/18 Rx Calcitriol 0.25 mcg PO WEEKLY 11/03/18 11/03/18 History Dicyclomine [Bentyl] 10 mg PO QID 11/03/18 11/03/18 History Ergocalciferol (Vitamin D2) 50,000 unit PO WEEKLY 11/03/18 11/03/18 History [Vitamin D2] Insulin Glargine,Hum.rec.anlog 30 unit SQ DAILY 11/03/18 11/03/18 History [Lantus Solostar] Pioglitazone HCl 15 mg PO DAILY 11/03/18 11/03/18 History Pregabalin [Lyrica] 75 mg PO DAILY 11/03/18 11/03/18 History metFORMIN HCL [Glucophage] 500 mg PO BID 11/03/18 11/03/18 History tiZANidine [Zanaflex] 2 mg PO Q8HR PRN 11/03/18 11/03/18 History traMADol HCL [Ultram] 50 mg PO Q6HR PRN 11/03/18 11/03/18 History Allergies Allergy/AdvReac Type Severity Reaction Status Date / Time No Known Allergies Allergy Verified 11/03/18 11:36 Exam Vital Signs Temp Pulse Resp BP Pulse Ox 11/03/18 11:26 97.9 F 78 18 124/80 94 L Intake and Output 11/02/18 11/03/18 11/03/18 22:59 06:59 14:59 Other: Weight 95.254 kg Height 5'3", weight 210 pounds, BMI 37.2. This is a well-developed well-nourished white female who is alert and oriented times 3 in no acute distress. Skin: she has several areas of non-pigmented areas on the hands arms and vulvar region. This is similar to the findings from 12/03/2016. HEENT: Within normal limits. NECK: Supple without mass or thyromegaly. CHEST AND LUNGS: Clear to auscultation. HEART: Regular rate and rhythm. BREASTS: Are without mass or discharge. There is mild bilateral breast tenderness. AXILLARY EXAM: Negative for adenopathy. BACK: Negative for CVA tenderness. ABDOMEN: Soft, nontender, without palpable masses. PELVIC EXAM: External genitalia reveals nonpigmented skin over the majority of the labia majora extending to the perineum and perianal areas. This is well demarcated and symmetric. There are no focal lesions. Vagina appears normal with mild atrophy. There is no evidence of prolapse. Bimanual examination is negative for mass or tenderness. RECTAL EXAM: Rectovaginal exam is negative for mass or tenderness and is negative for occult blood. EXTREMITIES: Nontender. IMPRESSION: 1. 63-year-old menopausal female with probable vitiligo involving the skin on the hands, arms and vulvar regions. 2. The patient is status post vaginal hysterectomy for benign reasons with otherwise unremarkable gynecologic exam. PLAN: 1. Pap smears have been discontinued. 2. Self breast awareness was discussed with the patient. 3. Screening mammogram will be done today. 4. Osteoporosis prevention was discussed. I have stressed the importance of adequate calcium, vitamin D and regular exercise. Recommended amounts of calcium and vitamin D were also discussed. Bone density testing will be done today. 5. I have again recommended that she established with a personal computer network engineer for her skin condition. 6. She was advised to return in one year for her annual well woman exam.
--- NOTE | 2018-11-03 16:13 | BD ---
EXAMINATION TYPE: Axial Bone Density DATE OF EXAM: 11/03/2018 COMPARISON: NONE CLINICAL HISTORY: Height: 62 inches Weight: 210 FRAX RISK QUESTIONS: Alcohol (3 or more units per day): no Family History (Parent hip fracture): no Glucocorticoids (More than 3mos): no (Ex: prednisone, prednisolone, methylprednisolone, dexamethasone, and hydrocortisone). History of Fracture in Adulthood: yes Secondary Osteoporosis: 1. Type 1 Diabetes: no 2. Hyperthyroidism: no 3. Menopause before 45: no 4. Malnutrition: no 5. Chronic liver disease: no Rheumatoid Arthritis: no Current Tobacco Use: no RISK FACTORS HISTORY OF: Family History of Osteoporosis: unsure Active: yes Diet low in dairy products/other sources of calcium: no Postmenopausal woman: yes Take estrogen and/or progesterone medications: no Lost more than 2 inches in height since high school: not more than; states was about 55 inches at one time Frequent falls: no Poor Health: no, "fair" Hyperparathyroidism: no Adrenal Insufficiency: no MEDICATIONS: Prednisone or other steroids: no Thyroid Medications: yes Which medication: Levothyroxine How Long: at least over 5 years Osteoporosis Medications: no Additional Medications: insulin & other meds for diabetes , a combination blood pressure/kidney med Additional History: type 2 diabetic EXAM MEASUREMENTS: Bone mineral densitometry was performed using the [employer] System. Bone mineral density as measured about the Lumbar spine is: ----- L1-L4(G/cm2): 1.596 T Score Values are as follows: ----- L2: 3.4 ----- L3: 3.4 ----- L4: 4.2 ----- L1-L4: 3.5 Bone mineral density BASELINE Bone mineral density about the R hip (g/cm2): 0.943 Bone mineral density about the L hip (g/cm2): 1.009 T Score values are as follows: -----R Neck: -0.7 -----L Neck: -0.2 -----R Total: 1.2 -----L Total: 1.0 Bone mineral density BASELINE IMPRESSION: Normal (Values between +1 and -1 indicate normal bone mass). Consider repeating this study in 5 year s or sooner if there is some new clinical indication. NOTE: T-SCORE=SD OF THE YOUNG ADULT MEAN.
--- NOTE | 2018-11-05 09:29 | MM ---
Reason for exam: screening (asymptomatic). Last mammogram was performed 1 year and 11 months ago. History: Excisional biopsy of the left breast. Physical Findings: A clinical breast exam by your physician is recommended on an annual basis and results should be correlated with mammographic findings. MG 3D Screening Mammo W/Cad Bilateral CC and MLO view(s) were taken. Prior study comparison: December 03, 2016, bilateral MG screening mammo w CAD. February 08, 2015, bilateral MG screening mammo w CAD. There are scattered fibroglandular densities. No significant changes when compared with prior studies. ASSESSMENT: Negative, BI-RAD 1 RECOMMENDATION: Routine screening mammogram of both breasts in 1 year.
--- NOTE | 2018-11-09 18:26 | P.PN ---
Progress Note - Text Progress Note Date: 11/09/18 OUTPATIENT FOLLOW-UP NOTE TEST(S)/RESULTS: test results from 11/03/2018 include benign mammogram and normal bone density test. METHOD OF NOTIFICATION: a message with these results was left on the patient's voicemail. PATIENT COMMENTS: DIAGNOSIS: benign mammogram and normal bone density test. DISCUSSION: PLAN: repeat bone density test in 5-6 years. She was advised to return in one year for her annual well woman exam.
== END | disposition home or self-care (01) ==
LOC: WWCWWP 11:20
PROVIDERS: ATTEND Obstetrics & Gynecology
DX: Z12.31 Encounter for screening mammogram for malignant neoplasm of breast (principal); Z78.0 Asymptomatic menopausal state
CPT/HCPCS: 77063; 77067; 77080

== ENCOUNTER → 2019-01-03 | Outpatient (CLI) | payer MEDICARE, OTHER ==
--- NOTE | 2019-01-03 17:06 | XR ---
EXAMINATION TYPE: XR Hip Complete RT DATE OF EXAM: 01/03/2019 CLINICAL HISTORY: pain TECHNIQUE: AP and frogleg views of the right hip are obtained. COMPARISON: None. FINDINGS: There is no acute fracture/dislocation evident. The joint space appears within normal li mits. The overlying soft tissue appears unremarkable. IMPRESSION: 1. There is no acute fracture or dislocation. ICD 10 NO FRACTURE, INITIAL EVALUATION
== END | disposition home or self-care (01) ==
LOC: RADXRMAIN 16:53
PROVIDERS: ATTEND Family Medicine
DX: M25.551 Pain in right hip (principal)
CPT/HCPCS: 73502

== ENCOUNTER 2019-02-21 12:22 | Observation (INO) | payer MEDICARE, OTHER ==
--- NOTE | 2019-02-21 13:29 | ED ---
Skin/Abscess/FB HPI - General Chief complaint: Skin/Abscess/Foreign Body Stated complaint: diabetic foot problem Time Seen by Provider: 02/21/19 12:49 Source: patient, RN notes reviewed Mode of arrival: ambulatory Limitations: no limitations - History of Present Illness Initial comments: 63-year-old female presents emergency Department with chief complaint of left foot wound. Patient that she felt like her foot was swollen but states that she got there is a piece of tape sec to her skin she states that she couldn't skin back and off over skin peeled off. She states that she's had increasing pain, swelling and redness. She states this started on and Thursday. She's been washing, given cramping antibiotic ointment. Patient states that helping. She is a known diabetic. She does have a history of DVT. Patient has a known fevers or chills. - Related Data Home Medications Medication Instructions Recorded Confirmed Levothyroxine Sodium [Synthroid] 125 mcg PO DAILY 03/02/14 11/03/18 Aspirin EC [Ecotrin Low Dose] 81 mg PO DAILY 10/01/17 11/03/18 glipiZIDE [Glucotrol] 10 mg PO DAILY 10/01/17 11/03/18 Albuterol Inhaler [Ventolin Hfa 2 puff INHALATION RT-Q6H PRN 10/30/17 11/03/18 Inhaler] Losartan [Cozaar] 50 mg PO DAILY 10/30/17 11/03/18 Calcitriol 0.25 mcg PO WEEKLY 11/03/18 11/03/18 Dicyclomine [Bentyl] 10 mg PO QID 11/03/18 11/03/18 Ergocalciferol (Vitamin D2) 50,000 unit PO WEEKLY 11/03/18 11/03/18 [Vitamin D2] Insulin Glargine,Hum.rec.anlog 30 unit SQ DAILY 11/03/18 11/03/18 [Lantus Solostar] Pioglitazone HCl 15 mg PO DAILY 11/03/18 11/03/18 Pregabalin [Lyrica] 75 mg PO DAILY 11/03/18 11/03/18 metFORMIN HCL [Glucophage] 500 mg PO BID 11/03/18 11/03/18 tiZANidine [Zanaflex] 2 mg PO Q8HR PRN 11/03/18 11/03/18 traMADol HCL [Ultram] 50 mg PO Q6HR PRN 11/03/18 11/03/18 Previous Rx's Medication Instructions Recorded Famotidine [Pepcid] 20 mg PO BID 30 Days #60 tablet 09/12/17 Acetaminophen Tab [Tylenol] 650 mg PO Q6HR PRN tab 11/03/17 Atorvastatin [Lipitor] 40 mg PO HS tab 11/03/17 Allergies Allergy/AdvReac Type Severity Reaction Status Date / Time No Known Allergies Allergy Verified 02/21/19 12:40 Review of Systems ROS Statement: Those systems with pertinent positive or pertinent negative responses have been documented in the HPI. ROS Other: All systems not noted in ROS Statement are negative. Past Medical History Past Medical History: COPD, Diabetes Mellitus, Deep Vein Thrombosis (DVT), GERD/Reflux, Osteoarthritis (OA), Pneumonia, Renal Disease, Thyroid Disorder Additional Past Medical History / Comment(s): Type II diabetes, hypothyroidism, diabetic foot neuropathy, DVT in 2016. 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 Genital HSV. History of Any Multi-Drug Resistant Organisms: MRSA Date of last positivie culture/infection: 2016 MDRO Source:: rt ist toe Past Surgical History: Appendectomy, Hernia Repair, Hysterectomy, Orthopedic Surgery, Tonsillectomy Additional Past Surgical History / Comment(s): LYSIS OF ABDOMINAL ADHESIONS. BILAT carpal tunnel surgery, syed fundaloplasty, COLONOSCOPY-2014, EGD w/bx 2017. laser eye sx. Left setup inject me as a teenager. Vaginal hysterectomy 2006. InD left hand Past Anesthesia/Blood Transfusion Reactions: No Reported Reaction Additional Past Anesthesia/Blood Transfusion Reaction / Comment(s): PT HAD SWELLING OF FACE WITH ANESTHESIA DURING HYSTERECTOMY, BUT NO PROBLEMS SINCE. HAS NEVER RECEIVED BLOOD Past Psychological History: No Psychological Hx Reported Smoking Status: Former smoker Past Alcohol Use History: None Reported, Abuse, Heavy Past Drug Use History: Marijuana - Past Family History Sister(s) Additional Family Medical History / Comment(s): Alcoholic. Father Family Medical History: Congestive Heart Failure (CHF), Coronary Artery Disease (CAD), Myocardial Infarction ([place]) Additional Family Medical History / Comment(s): heart problems Mother Family Medical History: Coronary Artery Disease (CAD), Diabetes Mellitus, Osteoarthritis (OA) Additional Family Medical History / Comment(s): Mother committed suicide in 1973 General Exam Limitations: no limitations General appearance: alert, in no apparent distress Head exam: Present: atraumatic, normocephalic, normal inspection Respiratory exam: Present: normal lung sounds bilaterally. Absent: respiratory distress, wheezes, rales, rhonchi, stridor Cardiovascular Exam: Present: regular rate, normal rhythm, normal heart sounds. Absent: systolic murmur, diastolic murmur, rubs, gallop, clicks GI/Abdominal exam: Present: soft, normal bowel sounds. Absent: distended, ten derness, guarding, rebound, rigid Extremities exam: Present: other (Left lateral foot there is an open wound approximately 3 cm x 3 cm, surrounding erythema,'s erythema of the distal leg and tenderness of the with increased swelling of the foot and calf. Neurovascular intact) Skin exam: Present: warm, dry. Absent: intact Course Vital Signs 02/21/19 02/21/19 02/21/19 12:36 12:40 13:40 Temperature 98.0 F Pulse Rate 87 85 87 Respiratory 16 20 20 Rate Blood Pressure 146/90 135/85 142/90 O2 Sat by Pulse 96 96 96 Oximetry 02/21/19 14:40 Temperature Pulse Rate 88 Respiratory 20 Rate Blood Pressure 141/89 O2 Sat by Pulse 96 Oximetry Medical Decision Making - Medical Decision Making Patient will be admitted for left foot diabetic ulcer, surrounding cellulitis. Patient is a laxative 3.0. Patient was given Bentyl for some antibiotics of Zosyn, also vancomycin at this time. Patient will have infectious disease consult. - Lab Data Result diagrams: 02/21/19 14:02 02/21/19 14:02 Lab Results 02/21/19 02/21/19 02/21/19 Range/Units 14:02 14:02 14:02 WBC 10.2 (3.8-10.6) k/uL RBC 4.29 (3.80-5.40) m/uL Hgb 12.1 (11.4-16.0) gm/dL Hct 37.4 (34.0-46.0) % MCV 87.0 (80.0-100.0) fL MCH 28.1 (25.0-35.0) pg MCHC 32.3 (31.0-37.0) g/dL RDW 13.4 (11.5-15.5) % Plt Count 212 (150-450) k/uL Neutrophils % 75 % Lymphocytes % 18 % Monocytes % 4 % Eosinophils % 2 % Basophils % 0 % Neutrophils # 7.6 (1.3-7.7) k/uL Lymphocytes # 1.8 (1.0-4.8) k/uL Monocytes # 0.4 (0-1.0) k/uL Eosinophils # 0.2 (0-0.7) k/uL Basophils # 0.0 (0-0.2) k/uL PT (9.0-12.0) sec INR (<1.2) APTT (22.0-30.0) sec Sodium 138 (137-145) mmol/L Potassium 5.0 (3.5-5.1) mmol/L Chloride 103 (98-107) mmol/L Carbon Dioxide 23 (22-30) mmol/L Anion Gap 12 mmol/L BUN 22 H (7-17) mg/dL Creatinine 0.99 (0.52-1.04) mg/dL Est GFR (CKD-EPI)AfAm 70 (>60 ml/min/1.73 sqM) Est GFR (CKD-EPI)NonAf 61 (>60 ml/min/1.73 sqM) Glucose 253 H (74-99) mg/dL Plasma Lactic Acid Matthew 3.0 H* (0.7-2.0) mmol/L Calcium 9.3 (8.4-10.2) mg/dL Total Bilirubin 0.6 (0.2-1.3) mg/dL AST 24 (14-36) U/L ALT 19 (4-34) U/L Alkaline Phosphatase 125 (38-126) U/L Total Protein 7.3 (6.3-8.2) g/dL Albumin 4.1 (3.5-5.0) g/dL 02/21/19 Range/Units 14:02 WBC (3.8-10.6) k/uL RBC (3.80-5.40) m/uL Hgb (11.4-16.0) gm/dL Hct (34.0-46.0) % MCV (80.0-100.0) fL MCH (25.0-35.0) pg MCHC (31.0-37.0) g/dL RDW (11.5-15.5) % Plt Count (150-450) k/uL Neutrophils % % Lymphocytes % % Monocytes % % Eosinophils % % Basophils % % Neutrophils # (1.3-7.7) k/uL Lymphocytes # (1.0-4.8) k/uL Monocytes # (0-1.0) k/uL Eosinophils # (0-0.7) k/uL Basophils # (0-0.2) k/uL PT 10.0 (9.0-12.0) sec INR 0.9 (<1.2) APTT 18.7 L (22.0-30.0) sec Sodium (137-145) mmol/L Potassium (3.5-5.1) mmol/L Chloride (98-107) mmol/L Carbon Dioxide (22-30) mmol/L Anion Gap mmol/L BUN (7-17) mg/dL Creatinine (0.52-1.04) mg/dL Est GFR (CKD-EPI)AfAm (>60 ml/min/1.73 sqM) Est GFR (CKD-EPI)NonAf (>60 ml/min/1.73 sqM) Glucose (74-99) mg/dL Plasma Lactic Acid Matthew (0.7-2.0) mmol/L Calcium (8.4-10.2) mg/dL Total Bilirubin (0.2-1.3) mg/dL AST (14-36) U/L ALT (4-34) U/L Alkaline Phosphatase (38-126) U/L Total Protein (6.3-8.2) g/dL Albumin (3.5-5.0) g/dL Disposition Clinical Impression: Diabetic foot ulcer, Left leg cellulitis Disposition: ADMITTED IP TO THIS [facility] Condition: Fair Referrals: Jose Manuel Moon MD [Primary Care Provider] - 1-2 days
[2019-02-21 14:34] LABS: Basophils % (A) 0 %; Eosinophils # (A) 0.2 k/uL (0-0.7); Eosinophils % (A) 2 %; HCT 37.4 % (34.0-46.0); HGB 12.1 gm/dL (11.4-16.0); Lymphocytes # (A) 1.8 k/uL (1.0-4.8); Lymphocytes % (A) 18 %; MCH 28.1 pg (25.0-35.0); MCHC 32.3 g/dL (31.0-37.0); Mean Platelet Volume 9.3; Monocytes # (A) 0.4 k/uL (0-1.0); Monocytes % (A) 4 %; Neutrophils # (A) 7.6 k/uL (1.3-7.7); Neutrophils % (A) 75 %; Platelet Count 212 k/uL (150-450); RBC 4.29 m/uL (3.80-5.40); RDW 13.4 % (11.5-15.5); WBC 10.2 k/uL (3.8-10.6)
--- NOTE | 2019-02-21 14:39 | US ---
EXAMINATION TYPE: US venous doppler duplex LE LT DATE OF EXAM: 02/21/2019 2:32 PM COMPARISON: NONE CLINICAL HISTORY: pain, swelling. SIDE PERFORMED: Left TECHNIQUE: The lower extremity deep venous system is examined utilizing real time linear array sonog aubree with graded compression, doppler sonography and color-flow sonography. VESSELS IMAGED: External Iliac Vein (EIV) Common Femoral Vein Deep Femoral Vein Greater Saphenous Vein * Femoral Vein Popliteal Vein Small Saphenous Vein * Proximal Calf Veins (* superficial vessels) Grayscale, color doppler, spectral doppler imaging performed of the deep veins of the left lower extr emity. There is normal flow, compressibility, vascular waveforms. Left Leg: Negative for DVT Left femoral vein is of small caliber and has thickened feng, there is flow and it is compressible. IMPRESSION: Small caliber of the left femoral vein is incidentally noted. However there is no sonogr aphic evidence of acute deep venous thrombosis within the left lower extremity.
[2019-02-21 14:45] LABS: Albumin 4.1 g/dL (3.5-5.0); Calcium 9.3 mg/dL (8.4-10.2); Total Bilirubin 0.6 mg/dL (0.2-1.3); Total Protein 7.3 g/dL (6.3-8.2)
[2019-02-21 14:50] LABS: INR 0.9 (<1.2)
[2019-02-21 14:55] LABS: Partial Thromboplastin Time 18.7 sec (22.0-30.0)
[2019-02-21] MEDS ORDERED: MORPHINE SULFATE 4 MG/ML SYRINGE IVP STA (14:59)
[2019-02-21] MEDS ORDERED: ONDANSETRON 4 MG/2 ML VIAL IVP STA ×2 (14:59→15:54)
--- NOTE | 2019-02-21 15:07 | XR ---
EXAMINATION TYPE: XR foot complete LT DATE OF EXAM: 02/21/2019 COMPARISON: NONE HISTORY: 63-year-old female with pain and infection TECHNIQUE: 3 views FINDINGS: Moderate degenerative change first MTP joint. Type I accessory navicular. Small plantar kaden caneal spur. Vascular calcifications. No acute fracture, subluxation, dislocation. No osseous erosion s to suggest osteomyelitis. IMPRESSION: Moderate first MTP joint OA. No acute osseous abnormal body. No radiographic evidence of osteomyeliti s at this time.
[2019-02-21] MEDS ORDERED: PIPERACILLIN-TAZOBACTAM 3.375 GM in SODIUM CHLORIDE 0.9% 100 ML IVPB STA (15:39)
[2019-02-21] MEDS ORDERED: VANCOMYCIN IV PER PHARMACY 1 EACH MISC MISCELLANE PRN (15:40)
[2019-02-21] MEDS ORDERED: NALOXONE 0.4 MG/ML 1 ML VIAL IV PRN (15:43)
[2019-02-21] MEDS ORDERED: VANCOMYCIN 1,750 MG in SODIUM CHLORIDE 0.9% 500 ML 500 ML IVPB STA (15:46)
[2019-02-21] MEDS: SODIUM CHLORIDE 0.9% 1,000 ML IV SCH (17:38)
[2019-02-21] MEDS: HYDROcodone/APAP 5-325MG 1 EACH TAB PO PRN (21:00)
[2019-02-22] MEDS: HYDROcodone/APAP 5-325MG 1 EACH TAB PO PRN (01:30)
[2019-02-22] MEDS: ONDANSETRON 4 MG/2 ML VIAL IVP PRN (04:56)
--- NOTE | 2019-02-22 06:48 | HP ---
HISTORY AND PHYSICAL This is a 63-year-old female who came in with a left foot wound. States her foot was swollen. She has got a piece of tape tied to her skin. She could not peel it off. The skin came off her left lateral foot by her left toes, increasing swelling and redness over the last 3 to 4 days, despite washing, giving antibiotic ointment. She is a known diabetic. She is a known diabetic history. She has a history of DVT. Negative for fever. She had ultrasound of the left leg which was negative for DVT. HOME MEDICINES: 1. Synthroid 125 daily. 2. Aspirin 81 daily. 3. Glucotrol 10 daily. 4. Albuterol 2 puffs q.4 hours p.r.n. 5. Cozaar 50 daily. 6. Calcitriol 0.25 mcg weekly. 7. Bentyl 10 q.i.d. 8. Lantus Solostar 30 units subcu daily. 9. Actos 15 mg daily. 10.Lyrica 75 daily. 11. 500 mg daily. 12.Zanaflex 2 mg q.8 hours p.r.n. 13.Tramadol 50 q.6. ALLERGIES: No known drug allergies. REVIEW OF SYSTEMS: Fourteen-point review of systems negative except for HPI. PAST MEDICAL HISTORY: COPD, diabetes mellitus, DVT, GERD, osteoarthritis, pneumonia, renal disease, hypothyroidism, diabetic neuropathy, type 2 diabetes mellitus, hypothyroidism, history of MRSA, appendectomy, hernia repair, hysterectomy, orthopedic surgery, tonsillectomy, lysis of abdominal adhesions, bilateral carpal tunnel syndrome, Lucy fundoplication, laser eye surgery, vaginal hysterectomy, I and D bilateral hands due to recent cat scratch with large abscesses in the hand, prior hysterectomy. SOCIAL HISTORY: Former smoker. Does marijuana. FAMILY HISTORY: Sister alcoholic. Father coronary artery disease, myocardial infarction. Mother coronary artery disease, diabetes mellitus type 2, osteoarthritis, mother suicide in 1973. PHYSICAL EXAM: VITAL SIGNS: Stable, afebrile. CARDIOVASCULAR: S1, S2. LUNGS: Transmitted upper airway sounds. HEMATOLOGY: Negative Homans. PSYCH: Fair mood and affect. NEUROLOGIC: Alert and orient x3. OPHTHALMOLOGIC: Pupils equal, round, reactive to light and accommodation. LUNGS: Clear. INTEGUMENT: Redness and swelling of the distal left foot from the mid foot down to the toes with ulceration on the 5th lateral toe and metatarsals. NEUROVASCULAR: Intact. Blood pressure 140s over 80s, O2 of 96, pulse 88, respiratory rate 20. ASSESSMENT: Left foot diabetic ulcer surrounding cellulitis. IV Zosyn, vancomycin, and Infectious Disease consult. Continue home medications. Bone scan to rule out osteomyelitis. MMODL / IJN: [id number] /
[2019-02-22] MEDS: VANCOMYCIN 1,500 MG in SODIUM CHLORIDE 0.9% 250 ML IVPB SCH ×2 (07:07→17:24)
[2019-02-22] MEDS: SODIUM CHLORIDE 0.9% 1,000 ML IV SCH ×2 (07:08→18:30)
--- NOTE | 2019-02-22 08:30 | CONS ---
CONSULTATION DATE OF SERVICE: 02/21/2019 REASON FOR CONSULTATION: Left diabetic foot ulcer and cellulitis. HISTORY OF PRESENT ILLNESS: The patient is a 63-year-old female. Past medical history significant for diabetes mellitus presented to the ER at [facility] today with a chief complaint of left foot wound, swelling and redness. The patient mentioning that she has more swelling in her foot and leg recently and yesterday she noticed there was something sticking to the left side of the foot. When she tried to peel on, apparently there was a blister that had ruptured that led to superficial ulceration to the left lateral foot area. The patient did have some drainage from it, not sure about the color. She has been complaining of pain to the left foot, more of a throbbing and burning pain, intensity almost 7 to 8 out of 10 and no radiation with associated swelling and redness of the left foot. The patient did have some chills but denies any high-grade fever. With these symptoms, the patient was evaluated by the ER physician. On arrival to the ER, the patient was afebrile. White count was normal. Lactic acid elevated at 3.0. The patient did have a venous Doppler left leg that was negative for any DVT. The patient did have x-rays of the foot, which did not show any cortical change suggestive of osteomyelitis. Patient was given a dose of vancomycin and Zosyn and has been admitted to the hospital. Infectious Disease was consulted for further recommendations regarding antibiotic therapy. REVIEW OF SYSTEMS: Positive points have been mentioned in HPI. Rest of systems are negative. PAST MEDICAL HISTORY: COPD, diabetes mellitus, DVT, gastroesophageal reflux disease, osteoarthritis, pneumonia, hypothyroidism, genital HSV, previous history of MRSA infection. PAST SURGICAL HISTORY: Appendectomy, hernia repair, hysterectomy, tonsillectomy, bilateral carpal tunnel surgery, Lucy fundoplication. SOCIAL HISTORY: Remote history of smoking. No drinking. Did admit to marijuana use. FAMILY HISTORY: Father with history of coronary artery disease. Mother history of coronary artery disease and diabetes. ALLERGIES: No known drug allergies. MEDICATIONS: Medications include the patient is currently on Vancomycin 1500 mg q.12 hours. She is on 0.9 normal saline, Narcan, [place], did receive Zosyn as well. PHYSICAL EXAMINATION: On examination, blood pressure is 143/77, pulse of 80, temperature of 98.3. She is 95% on room air. General description is a middle-aged female lying in bed in no distress. No tachypnea or accessory muscles for respiration use. HEENT: Examination shows no pallor or scleral icterus. Oral mucous membrane is dry. No pharyngeal erythema or thrush. NECK: Trachea central. No thyromegaly. LUNGS: Unlabored breathing, clear to auscultation anteriorly. No wheeze or crackle. HEART: S1, S2. Regular rate and rhythm. ABDOMEN: Soft, no tenderness. Left leg with swelling and redness mostly marked on the foot area with superficial ulceration with lateral border at the base of 5th toe. No slough tissue or foul smelling drainage. NEUROLOGICALLY: Patient is awake, alert, oriented x3. Mood and affect normal. LABS: Hemoglobin is 12.1, white count of 10.2, BUN of 22, creatinine 0.9. Lactic acid 3, repeat is 1.4. Ultrasound negative. X-rays were negative for any bony changes. DIAGNOSTIC IMPRESSION AND PLAN: Patient with left diabetic foot ulcer with secondary cellulitis, possibly started as a ruptured blister with evidence of cellulitis pointing to the left foot and leg area in this patient did have previous history of methicillin-resistant Staphylococcus aureus infection: We will need to keep that in mind more likely a gram-positive skin infection because patient low for underlying deep infection or any abscess. PLAN: 1. Vancomycin, pharmacy to dose, target of 15. Will watch the kidney function and vancomycin trough closely. 2. Local wound care with dry Aquacel Silver dressing, will change daily. 3. We will follow on clinical condition and culture to further adjust medication if needed. Thank you for this consultation. Will follow this patient along with you. MMODL / IJN: [id number] /
[2019-02-22 08:57] LABS: Glucose,Whole Blood 191 mg/dL (75-99)
[2019-02-22] MEDS ORDERED: ACETAMINOPHEN TAB 325 MG TAB PO PRN (09:15)
[2019-02-22] MEDS: LOSARTAN 50 MG TAB PO SCH (09:21)
[2019-02-22] MEDS: LEVOTHYROXINE 125 MCG TAB PO SCH (09:21)
[2019-02-22] MEDS: DICYCLOMINE 10 MG CAP PO SCH ×2 (09:22→20:44)
[2019-02-22] MEDS: glipiZIDE 10 MG TAB PO SCH ×2 (09:22→20:44)
[2019-02-22] MEDS: ASPIRIN 81 MG PO SCH (09:22)
[2019-02-22] MEDS: metFORMIN 500 MG TAB PO SCH ×2 (09:22→20:44)
[2019-02-22] MEDS: FAMOTIDINE 20 MG TAB PO SCH ×2 (09:22→20:44)
[2019-02-22] MEDS: PIOGLITAZONE 15 MG TAB PO SCH (09:23)
[2019-02-22] MEDS: INSULIN DETEMIR (LEVEMIR) 100 UNIT/ML SYR SQ SCH (09:56)
[2019-02-22 12:40] LABS: Glucose,Whole Blood 201 mg/dL (75-99)
[2019-02-22] MEDS ORDERED: FUROSEMIDE 10 MG/ML 2 ML VIAL IV ONE (12:55)
--- NOTE | 2019-02-22 13:21 | NM ---
EXAMINATION TYPE: NM bone 3 phase DATE OF EXAM: 02/22/2019 COMPARISON: 07/23/2016 HISTORY: Left foot osteomyelitis Triple phase bone scintigraphy was performed following the injection of 23.9 mCi Tc 99m MDP. Immedia te images and 4 hours post injection images acquired. FINDINGS: Blood flow: There is increased blood flow to the left lower extremity compared to the right Blood pool: There is diffuse increased radiotracer accumulation within the left foot compared to the right. There is focal radiotracer at the right first metatarsophalangeal joint region. Static images: There is focal radiotracer accumulation at the first right metatarsophalangeal joint s pace. Mild diffuse uptake is within the ankle regions bilaterally and to a minimal degree at the firs t metatarsophalangeal joint space of the left foot. IMPRESSION: 1. No suspicious abnormality to suggest acute osteomyelitis left foot. 2. Consider cellulitis or soft tissue infection within the differential left foot. 3. There is likely prominent arthritic change at the right first metatarsophalangeal joint space. Con construction field engineer plain film correlation with right foot x-ray. Underlying fracture could be considered.
[2019-02-22] MEDS: Acetaminophen-Codeine 300-30mg TAB PO PRN ×3 (13:30→22:42)
[2019-02-22 17:09] LABS: Glucose,Whole Blood 219 mg/dL (75-99)
[2019-02-22 20:14] LABS: Glucose,Whole Blood 206 mg/dL (75-99)
[2019-02-22] MEDS: ATORVASTATIN 40 MG TAB PO SCH (20:44)
--- NOTE | 2019-02-23 00:30 | PN ---
PROGRESS NOTE DATE OF SERVICE: 02/22/2018 REASON FOR FOLLOWUP: Left diabetic foot wound with cellulitis. INTERVAL HISTORY: The patient is currently afebrile. The patient has been breathing comfortably. The patient denies having any chest pain, shortness of breath or cough. No nausea, vomiting, abdominal pain, or any worsening pain to the left foot area. PHYSICAL EXAMINATION: Blood pressure is 146/79 with a pulse of 70, temperature 97.9. She is 93% on room air. General description is a middle-aged female up in the bed in no distress. Respiratory system: Unlabored breathing, clear to auscultation anteriorly. Heart S1, S2. Regular rate and rhythm. Abdomen soft. No tenderness. LABS: Bone scan has been negative. The culture from 02/19 with MRSA. DIAGNOSTIC IMPRESSION AND PLAN: Patient with left diabetic foot wound with secondary cellulitis culture with presumptive MRSA. The patient is covered with vancomycin, pharmacy to dose that will continue and monitor clinical course closely. Local wound care with dry Aquacel dressing and mild Terrell wrap for compression. Continue supportive care. MMODL / IJN: [id number] /
[2019-02-23] MEDS ORDERED: VANCOMYCIN TROUGH DUE 1 EACH MISC MISCELLANE ONE (05:00)
[2019-02-23] MEDS: VANCOMYCIN 1,500 MG in SODIUM CHLORIDE 0.9% 250 ML IVPB SCH ×2 (05:56→22:57)
[2019-02-23] MEDS: LEVOTHYROXINE 125 MCG TAB PO SCH (06:02)
[2019-02-23 07:06] LABS: Glucose,Whole Blood 189 mg/dL (75-99)
[2019-02-23] MEDS: LOSARTAN 50 MG TAB PO SCH (07:53)
[2019-02-23] MEDS: FAMOTIDINE 20 MG TAB PO SCH ×2 (07:53→20:44)
[2019-02-23] MEDS: glipiZIDE 10 MG TAB PO SCH ×2 (07:53→20:44)
[2019-02-23] MEDS: DICYCLOMINE 10 MG CAP PO SCH ×2 (07:53→20:45)
[2019-02-23] MEDS: metFORMIN 500 MG TAB PO SCH ×2 (07:53→20:44)
[2019-02-23] MEDS: INSULIN DETEMIR (LEVEMIR) 100 UNIT/ML SYR SQ SCH (07:54)
[2019-02-23] MEDS: PIOGLITAZONE 15 MG TAB PO SCH (07:54)
[2019-02-23] MEDS: ASPIRIN 81 MG PO SCH (07:54)
[2019-02-23] MEDS: SODIUM CHLORIDE 0.9% 1,000 ML IV SCH ×2 (07:58→20:46)
[2019-02-23] MEDS: Acetaminophen-Codeine 300-30mg TAB PO PRN (09:03)
[2019-02-23 11:43] LABS: Glucose,Whole Blood 219 mg/dL (75-99)
[2019-02-23] MEDS: ONDANSETRON 4 MG/2 ML VIAL IVP PRN ×2 (13:05→22:56)
[2019-02-23 13:46] VITALS: BMI 34.3
[2019-02-23 17:10] LABS: Glucose,Whole Blood 101 mg/dL (75-99)
[2019-02-23] MEDS: INSULIN ASPART (NovoLOG) 100 UNIT/ML VIAL SQ SCH ×2 (17:36→20:45)
[2019-02-23] MEDS: BUTALB/APAP/CAFF 50-325-40MG TAB PO PRN ×2 (17:55→22:57)
[2019-02-23 20:25] LABS: Glucose,Whole Blood 167 mg/dL (75-99)
[2019-02-23] MEDS: ATORVASTATIN 40 MG TAB PO SCH (20:44)
--- NOTE | 2019-02-23 22:46 | PN ---
PROGRESS NOTE DATE OF SERVICE: 02/23/2019. REASON FOR FOLLOWUP: Left diabetic foot infection MRSA. INTERVAL HISTORY: The patient is currently afebrile. Patient is breathing comfortably. Denies having any chest pain or any cough. No nausea, vomiting. No abdominal pain or any worsening pain to the left foot area. PHYSICAL EXAMINATION: Blood pressure 146/73 with a pulse of 73, temperature 97.6. She is 95% on room air. General description is a middle-aged female lying in bed in no distress. Respiratory system: Unlabored breathing. Clear to auscultation anteriorly. Heart S1, S2. Regular rate and rhythm. ABDOMEN: Soft, no tenderness. Left foot is currently dressed up. No obvious drainage on the dressing. LABS: Wound culture with MRSA. Bone scan has been negative. DIAGNOSTIC IMPRESSION AND PLAN: Patient with left diabetic foot infection in this patient who did have a ruptured blister with secondary cellulitis culture with MRSA. Patient is covered with vancomycin, doses needs to be cut to keep the trough around 15. Plan will be for oral antibiotic on discharge and continue supportive care. MMODL / IJN: [id number] /
[2019-02-24] MEDS: LEVOTHYROXINE 125 MCG TAB PO SCH (05:31)
[2019-02-24 07:03] LABS: Glucose,Whole Blood 201 mg/dL (75-99)
[2019-02-24] MEDS: FAMOTIDINE 20 MG TAB PO SCH ×2 (07:53→21:48)
[2019-02-24] MEDS: LOSARTAN 50 MG TAB PO SCH (07:54)
[2019-02-24] MEDS: DICYCLOMINE 10 MG CAP PO SCH ×2 (07:54→21:48)
[2019-02-24] MEDS: metFORMIN 500 MG TAB PO SCH ×2 (07:54→21:48)
[2019-02-24] MEDS: glipiZIDE 10 MG TAB PO SCH ×2 (07:54→21:48)
[2019-02-24] MEDS: INSULIN DETEMIR (LEVEMIR) 100 UNIT/ML SYR SQ SCH (07:55)
[2019-02-24] MEDS: PIOGLITAZONE 15 MG TAB PO SCH (07:55)
[2019-02-24] MEDS: ASPIRIN 81 MG PO SCH (07:56)
[2019-02-24] MEDS: INSULIN ASPART (NovoLOG) 100 UNIT/ML VIAL SQ SCH ×4 (08:00→22:07)
[2019-02-24 09:18] LABS: Basophils # (A) 0.1 k/uL (0-0.2); Basophils % (A) 1 %; Eosinophils # (A) 0.2 k/uL (0-0.7); Eosinophils % (A) 4 %; HCT 34.6 % (34.0-46.0); HGB 11.6 gm/dL (11.4-16.0); Lymphocytes # (A) 1.6 k/uL (1.0-4.8); Lymphocytes % (A) 29 %; MCH 29.1 pg (25.0-35.0); MCHC 33.5 g/dL (31.0-37.0); MCV 86.9 fL (80.0-100.0); Mean Platelet Volume 8.4; Monocytes # (A) 0.3 k/uL (0-1.0); Monocytes % (A) 5 %; Neutrophils # (A) 3.2 k/uL (1.3-7.7); Neutrophils % (A) 60 %; Platelet Count 208 k/uL (150-450); RBC 3.98 m/uL (3.80-5.40); RDW 12.8 % (11.5-15.5); WBC 5.3 k/uL (3.8-10.6)
[2019-02-24 09:30] LABS: Calcium 9.2 mg/dL (8.4-10.2); Potassium 4.7 mmol/L (3.5-5.1)
[2019-02-24] MEDS: BUTALB/APAP/CAFF 50-325-40MG TAB PO PRN (09:53)
[2019-02-24] MEDS: SODIUM CHLORIDE 0.9% 1,000 ML IV SCH (11:37)
[2019-02-24 12:46] LABS: Glucose,Whole Blood 98 mg/dL (75-99)
--- NOTE | 2019-02-24 13:02 | PN ---
PROGRESS NOTE DATE OF SERVICE: 02/24/2019 REASON FOR FOLLOWUP: Left diabetic foot wound infection, MRSA. INTERVAL HISTORY: The patient is currently afebrile. The patient is breathing comfortably. She has been complaining of significant swelling in her legs which seemed to have slightly improved after she was given Lasix. The patient denies having any chest pain, shortness of breath or cough. No nausea, no vomiting. No abdominal pain. Pain to the left foot wound area. PHYSICAL EXAMINATION: Her blood pressure is 149/77 with a pulse of 69, temperature 97.8, she is 92% on room air. General description is a middle-aged female, lying in bed in no distress. RESPIRATORY SYSTEM: Unlabored breathing, clear to auscultation anteriorly. HEART: S1, S2. Regular rate and rhythm ABDOMEN: Soft, no tenderness. EXTREMITIES: Left foot wound did have some slough tissue. The redness has improved, no drainage. LABS: Hemoglobin is 11.1, white count of 5.2, BUN of 30, creatinine 0.90. DIAGNOSTIC IMPRESSION AND PLAN: Patient with a left leg wound with secondary cellulitis. Culture has been positive for MRSA. Bone scan was negative. Local care was switched over to [facility] followed with moist dressing. Terrell wrap to the left to keep the swelling down antibiotic. Antibiotic form of vancomycin to continue another 24 hours. Hopefully finish therapy with oral antibiotics. Continue supportive care. MMODL / IJN: [id number] /
--- NOTE | 2019-02-24 16:13 | P.PN ---
Subjective Progress Note Date: 02/24/19 This is a 63-year-old female admitted with left diabetic foot infection, wound culture positive for presumptive MRSA, cellulitis and multiple other medical issues. Maintained on vancomycin as per infectious disease. Bone scan reported negative osteomyelitis, possible possible underlying fracture. Pain better controlled, states sore. Complains of headache, unrelieved by Tylenol. Positive nausea secondary to headache. Afebrile. Blood sugars better controlled this afternoon. Denies chest pain, palpitations or shortness of breath. Denies chest pain, palpitations or shortness of breath. Objective - Vital Signs Vital signs: Vital Signs Temp 97.6 F 02/23/19 14:48 Pulse 73 02/23/19 14:48 Resp 12 02/23/19 14:48 BP 146/73 02/23/19 14:48 Pulse Ox 95 02/23/19 14:48 Intake & Output 02/22/19 02/23/19 02/23/19 18:59 06:59 18:59 Intake Total 540 Balance 540 Weight 90.718 kg 90.718 kg Intake: Oral 540 Other: Voiding Method Toilet # Voids 1 2 - Exam PHYSICAL EXAM: VITAL SIGNS: As above GENERAL: Sitting up in bed, no acute distress HEENT: Conjunctivae normal. eyes normal. Oral mucosa moist NECK: No JVD. No thyroid enlargement. No LNs CARDIOVASCULAR: S1, S2 regular.. No murmur RESPIRATION: Breath sounds diminished in the bases. No rhonchi or crackles. No bronchial breathing. ABDOMEN: Soft, nontender . No guarding. no masses palpable. No ascites, No hepatosplenomegaly.Bowel sounds heard. LEGS: Left foot dressing clean dry and intact .No edema. no swelling PSYCHIATRY: Alert and oriented X3, mood and affect normal. NERVOUS SYSTEM: Cranial N 2-12 grossly normal. Moves all 4 limbs. Diffuse weakness No focal deficits. Strength and sensation grossly intact.. Skin: no rash - Labs CBC & Chem 7: 02/24/19 08:54 02/24/19 08:54 Labs: Abnormal Lab Results - Last 24 Hours (Table) 02/22/19 02/23/19 02/23/19 Range/Units 20:11 07:04 11:39 POC Glucose (mg/dL) 206 H 189 H 219 H (75-99) mg/dL 02/23/19 Range/Units 17:09 POC Glucose (mg/dL) 101 H (75-99) mg/dL Microbiology - Last 24 Hours (Table) 02/21/19 12:30 Gram Stain - Preliminary Foot - Left Wound Culture - Preliminary Presumptive MRSA Assessment and Plan Assessment: Left Diabetic foot infection, ruptured blister, presumptive MRSA , with cellulitis. Diabetic neuropathy Diabetes mellitus II COPD, stable Gastroesophageal reflux disease Hypertension Hyperlipidemia Chronic renal failure, stage II Hypothyroidism Former nicotine dependence Depression History of alcohol abuse Plan: Continue on current medication regime ,monitoring and symptomatic treatment. Fiorcet added to med regime for headache. Zofran for nausea. Maintain IV antibiotics/Wound Care as per infectious disease. Close monitoring of renal function with labs ordered for a.m. Discharge planning in progress, the next 24-48 hours. The impression and plan of care has been dictated as directed. : I performed a history and examination of this patient, discussed the same with the dictator. I agree with the dictator's note ,documented as a scribe. Any additional findings or plans will be noted.
--- NOTE | 2019-02-24 16:23 | P.PN ---
Subjective Progress Note Date: 02/24/19 This is a 63-year-old female admitted with left diabetic foot infection, wound culture positive for presumptive MRSA, cellulitis and multiple other medical issues. Maintained on vancomycin as per infectious disease. Bone scan reported negative osteomyelitis, possible possible underlying fracture. Pain better controlled, states sore. Complains of headache, unrelieved by Tylenol. Positive nausea secondary to headache. Afebrile. Blood sugars better controlled this afternoon. Denies chest pain, palpitations or shortness of breath. Denies chest pain, palpitations or shortness of breath. 02/24/2019 bilateral correlation foot x-rays pending to rule out fracture of left foot. Headache subsided with Fiorcet. Good diet intake with no nausea vomiting or diarrhea. Dressing changed per infectious disease, recommending one more day of IV antibiotic therapy. Continues on vancomycin, creatinine 0.9. Blood sugars improving. Objective - Vital Signs Vital signs: Vital Signs Temp 98.5 F 02/24/19 12:55 Pulse 60 02/24/19 12:55 Resp 17 02/24/19 12:55 BP 164/82 02/24/19 12:55 Pulse Ox 98 02/24/19 12:55 Intake & Output 02/23/19 02/24/19 02/24/19 18:59 06:59 18:59 Intake Total 540 600 Balance 540 600 Weight 90.718 kg Intake: IV 600 Sodium Chloride 0.9% 1, 600 000 ml @ 75 mls/hr IV . [id number] SHY Rx#:[id number] Oral 540 Other: # Voids 2 2 - Exam PHYSICAL EXAM: VITAL SIGNS: As above GENERAL: Sitting up in bed, no acute distress HEENT: Conjunctivae normal. eyes normal. Oral mucosa moist NECK: No JVD. No thyroid enlargement. No LNs CARDIOVASCULAR: S1, S2 regular.. No murmur RESPIRATION: Breath sounds diminished in the bases. No rhonchi or crackles. No bronchial breathing. ABDOMEN: Soft, nontender . No guarding. no masses palpable. No ascites, No hepatosplenomegaly.Bowel sounds heard. LEGS: Left polishing machine tender, dressing clean dry and intact . PSYCHIATRY: Alert and oriented X3, mood and affect normal. NERVOUS SYSTEM: Cranial N 2-12 grossly normal. Moves all 4 limbs. No focal deficits. Skin: no rash Microbiology 02/21/19 12:30 Foot - Left Gram Stain - Final 02/21/19 12:30 Foot - Left Wound Culture - Final Methicillin resist S. aureus - Labs CBC & Chem 7: 02/24/19 08:54 02/24/19 08:54 Labs: Abnormal Lab Results - Last 24 Hours (Table) 02/23/19 02/23/19 02/24/19 Range/Units 17:09 20:23 07:00 BUN (7-17) mg/dL Glucose (74-99) mg/dL POC Glucose (mg/dL) 101 H 167 H 201 H (75-99) mg/dL 02/24/19 Range/Units 08:54 BUN 30 H (7-17) mg/dL Glucose 163 H (74-99) mg/dL POC Glucose (mg/dL) (75-99) mg/dL Microbiology - Last 24 Hours (Table) 02/21/19 12:30 Gram Stain - Final Foot - Left Wound Culture - Final Methicillin resist S. aureus Assessment and Plan Assessment: Left Diabetic foot infection, ruptured blister, MRSA , with cellulitis. Ruling out underlying fracture Diabetic neuropathy Diabetes mellitus II COPD, stable Gastroesophageal reflux disease Hypertension Hyperlipidemia Chronic renal failure, stage II Hypothyroidism Former nicotine dependence Depression History of alcohol abuse Plan: Continue on current medication regime ,monitoring and symptomatic treatment. Bilateral foot x-ray pending, ruling out fracture. Continue on IV antibiotics/Wound Care as per infectious disease. Close monitoring of blood sugars,renal function with labs ordered for a.m. Discharge planning in progress for tomorrow. The impression and plan of care has been dictated as directed. : I performed a history and examination of this patient, discussed the same with the dictator. I agree with the dictator's note ,documented as a scribe. Any additional findings or plans will be noted.
[2019-02-24 17:10] LABS: Glucose,Whole Blood 174 mg/dL (75-99)
[2019-02-24] MEDS: VANCOMYCIN 1,500 MG in SODIUM CHLORIDE 0.9% 250 ML IVPB SCH (17:40)
[2019-02-24] MEDS: Acetaminophen-Codeine 300-30mg TAB PO PRN (19:12)
--- NOTE | 2019-02-24 20:13 | XR ---
EXAMINATION TYPE: XR foot complete bilateral DATE OF EXAM: 02/24/2019 COMPARISON: 02/21/2019 comment three-phase bone scan 02/22/2019 HISTORY: Nonhealing wound, abnormal bone scan TECHNIQUE: Bilateral feet are examined in 3 projections each FINDINGS: Right foot: Plantar and Achilles tendon calcaneal heel spurs are present. No acute fractures are evid ent. No suspicious cortical erosion is evident. Attention is paid to the first metatarsophalangeal joint space right foot. There are degenerative antoinette nges at the right first metatarsophalangeal joint space which can correspond to the distal foci of ra diotracer on the bone scan. There is lucency within the proximal first metatarsal right foot slightly greater than expected for a vascular channel. Osteomyelitis is not entirely excluded this level. Thi s can be related to the osteophyte formation from the degenerative change. Left foot: There is a plantar calcaneal heel spur present. Diffuse soft tissue swelling appears to be present. No acute fractures are evident. No suspicious cortical erosion is evident. There may be florencia e soft tissue injury along the lateral left foot which may correlate with the patient's open wound. IMPRESSION: 1. No acute fracture identified. The moderately advanced osteoarthritic degenerative change at the r ight first metatarsophalangeal joint space could account for the radiotracer on the bone scan. Early osteomyelitis at the medial proximal first phalanx right foot remains within the differential but is considered less likely.
[2019-02-24] MEDS: ATORVASTATIN 40 MG TAB PO SCH (21:47)
[2019-02-24 21:59] LABS: Glucose,Whole Blood 141 mg/dL (75-99)
[2019-02-24 23:54] VITALS: PULSE 69
[2019-02-25] MEDS: SODIUM CHLORIDE 0.9% 1,000 ML IV SCH ×2 (00:51→11:48)
[2019-02-25] MEDS: LEVOTHYROXINE 125 MCG TAB PO SCH (06:09)
[2019-02-25 06:21] VITALS: BP 148/81; RESP 17; TEMP 98.6
[2019-02-25] MEDS ORDERED: VANCOMYCIN TROUGH DUE 1 EACH MISC MISCELLANE ONE (07:00)
[2019-02-25 07:30] LABS: Glucose,Whole Blood 176 mg/dL (75-99)
[2019-02-25] MEDS: LOSARTAN 50 MG TAB PO SCH (08:02)
[2019-02-25] MEDS: metFORMIN 500 MG TAB PO SCH (08:02)
[2019-02-25] MEDS: glipiZIDE 10 MG TAB PO SCH (08:02)
[2019-02-25] MEDS: INSULIN DETEMIR (LEVEMIR) 100 UNIT/ML SYR SQ SCH (08:02)
[2019-02-25] MEDS: PIOGLITAZONE 15 MG TAB PO SCH (08:02)
[2019-02-25] MEDS: FAMOTIDINE 20 MG TAB PO SCH (08:02)
[2019-02-25] MEDS: ASPIRIN 81 MG PO SCH (08:03)
[2019-02-25] MEDS: DICYCLOMINE 10 MG CAP PO SCH (08:03)
[2019-02-25] MEDS: INSULIN ASPART (NovoLOG) 100 UNIT/ML VIAL SQ SCH ×2 (08:03→12:29)
[2019-02-25] MEDS: Acetaminophen-Codeine 300-30mg TAB PO PRN (08:11)
[2019-02-25] MEDS: VANCOMYCIN 1,500 MG in SODIUM CHLORIDE 0.9% 250 ML IVPB SCH (09:16)
[2019-02-25 09:21] LABS: HGB 10.6 gm/dL (11.4-16.0); MCH 28.4 pg (25.0-35.0); MCHC 32.1 g/dL (31.0-37.0); MCV 88.4 fL (80.0-100.0); Mean Platelet Volume 8.8; Platelet Count 194 k/uL (150-450); RBC 3.73 m/uL (3.80-5.40); RDW 13.3 % (11.5-15.5); WBC 6.9 k/uL (3.8-10.6)
[2019-02-25 09:47] LABS: Calcium 8.7 mg/dL (8.4-10.2); Potassium 4.5 mmol/L (3.5-5.1)
[2019-02-25 12:03] LABS: Glucose,Whole Blood 125 mg/dL (75-99)
--- NOTE | 2019-02-25 15:27 | PN ---
PROGRESS NOTE DATE OF SERVICE: 02/25/2019. REASON FOR FOLLOWUP: Left diabetic foot wound and cellulitis. INTERVAL HISTORY: The patient was seen on the rounds this morning. The patient was afebrile, breathing comfortably. The patient denies having any chest pain or cough. No nausea, vomiting or abdominal pain. Pain to the left foot area. PHYSICAL EXAMINATION: Blood pressure 148/81 with a pulse of 69, temperature 98.6. She is 94% on room air. General description is a middle-aged female, lying in bed in no distress. RESPIRATORY SYSTEM: Unlabored breathing, clear to auscultation anteriorly. HEART: S1, S2. Regular rate and rhythm. ABDOMEN: Soft, no tenderness. Lower extremity with no dressing, no obvious drainage on the dressing. LABS: Hemoglobin is 10.6, white count of 6.9, BUN 14, creatinine 0.90. DIAGNOSTIC IMPRESSION AND PLAN: Patient with left foot wound with cellulitis. Bone scan was negative for any osteomyelitis. The patient's antibiotic switched over to doxycycline 2 g twice a day for 10 days. Local care with [facility] followup in the [facility] next week. Continue supportive care. MMODL / IJN: [id number] /
--- NOTE | 2019-02-25 18:10 | P.DS ---
Providers Date of admission: 02/21/19 15:41 Expected date of discharge: 02/25/19 Attending physician: Jose Manuel Moon Consults: 02/21/19 15:43 Consult Physician Urgent Consulting Provider: Kitty España Consult Reason/Comments: Diabetic foot ulcer Do you want consulting provider notified?: Yes Primary care physician: Jose Manuel Moon [facility] Course: Final diagnoses Left Diabetic foot infection, ruptured blister, MRSA , with cellulitis. Diabetic neuropathy Diabetes mellitus II COPD, stable Gastroesophageal reflux disease Hypertension Hyperlipidemia Chronic renal failure, stage II Hypothyroidism Former nicotine dependence Depression History of alcohol abuse Hospital course This is a 63-year-old female admitted with left diabetic foot infection, wound culture positive for presumptive MRSA, cellulitis and multiple other medical issues. Maintained on vancomycin as per infectious disease. Bone scan reported negative osteomyelitis, possible possible underlying fracture. Pain better controlled, states sore. Complains of headache, unrelieved by Tylenol. Positive nausea secondary to headache. Afebrile. Blood sugars better controlled this afternoon. Denies chest pain, palpitations or shortness of breath. Denies chest pain, palpitations or shortness of breath. 02/24/2019 bilateral correlation foot x-rays pending to rule out fracture of left foot. Headache subsided with Fiorcet. Good diet intake with no nausea vomiting or diarrhea. Dressing changed per infectious disease, recommending one more day of IV antibiotic therapy. Continues on vancomycin, creatinine 0.9. Blood sugars improving. No acute fracture identified on foot x-ray. Maintain on IV antibiotics as per infectious disease with significant clinical improvement. Cleared by ID for discharge. Patient is being discharged home in a stable condition with guarded prognosis. The impression and plan of care has been dictated as directed. : I performed a history and examination of this patient, discussed the same with the dictator. I agree with the dictator's note ,documented as a scribe. Any additional findings or plans will be noted. Patient Condition at Discharge: Stable Plan - Discharge Summary Discharge Rx Participant: No New Discharge Prescriptions: New Acetaminophen Tab [Tylenol] 325 mg PO Q4HR PRN tab PRN Reason: Fever And/ Or Pain Doxycycline [Vibramycin] 100 mg PO BID #20 cap Continue Levothyroxine Sodium [Synthroid] 125 mcg PO DAILY Famotidine [Pepcid] 20 mg PO BID 30 Days #60 tablet glipiZIDE [Glucotrol] 10 mg PO BID Losartan [Cozaar] 75 mg PO DAILY Atorvastatin [Lipitor] 40 mg PO HS tab metFORMIN HCL [Glucophage] 500 mg PO BID Pioglitazone HCl 15 mg PO DAILY Insulin Glargine,Hum.rec.anlog [Lantus Solostar] 30 unit SQ DAILY Ergocalciferol (Vitamin D2) [Vitamin D2] 50,000 unit PO Q14D Calcitriol 0.25 mcg PO WEEKLY Dicyclomine [Bentyl] 10 mg PO BID Aspirin EC [Ecotrin Low Dose] 81 mg PO DAILY Discharge Medication List Levothyroxine Sodium [Synthroid] 125 mcg PO DAILY 03/02/14 [History] Famotidine [Pepcid] 20 mg PO BID 30 Days #60 tablet 09/12/17 [Rx] glipiZIDE [Glucotrol] 10 mg PO BID 10/01/17 [History] Losartan [Cozaar] 75 mg PO DAILY 10/30/17 [History] Atorvastatin [Lipitor] 40 mg PO HS tab 11/03/17 [Rx] Calcitriol 0.25 mcg PO WEEKLY 11/03/18 [History] Ergocalciferol (Vitamin D2) [Vitamin D2] 50,000 unit PO Q14D 11/03/18 [History] Insulin Glargine,Hum.rec.anlog [Lantus Solostar] 30 unit SQ DAILY 11/03/18 [History] Pioglitazone HCl 15 mg PO DAILY 11/03/18 [History] metFORMIN HCL [Glucophage] 500 mg PO BID 11/03/18 [History] Aspirin EC [Ecotrin Low Dose] 81 mg PO DAILY 02/21/19 [History] Dicyclomine [Bentyl] 10 mg PO BID 02/21/19 [History] Acetaminophen Tab [Tylenol] 325 mg PO Q4HR PRN tab 02/25/19 [Rx] Doxycycline [Vibramycin] 100 mg PO BID #20 cap 02/25/19 [Rx] Follow up Appointment(s)/Referral(s): Jose Manuel Moon MD [Primary Care Provider] - 3 Days (Please call office to make appointment) Kitty España MD [STAFF PHYSICIAN] - 1 Week (Wound care center . Office will call to set appointment) Ambulatory/Diagnostic Orders: Complete Blood Count w/diff [LAB.AMB] Time Frame: 3 Days, Location: None Selected Patient Instructions/Handouts: Diabetic Foot Ulcers (DC) Activity/Diet/Wound Care/Special Instructions: [place] to the left foot wound followed by moist dressinf daily follow up with Dr españa in wound care , next week , call [phone] to make an appointment. Discharge Disposition: HOME SELF-CARE
[2019-02-27] MEDS ORDERED: ERGOCALCIFEROL 50,000 UNIT CAP PO SCH (09:00)
[2019-02-28] MEDS ORDERED: CALCITRIOL 0.25 MCG CAP PO SCH (09:00)
== END 2019-02-25 14:31 | disposition home or self-care (01) ==
LOC: EC 12:22 → 4SSUR 15:41 → UNDOADMIN 15:41 → INTOOBSV 15:41 → 4SSUR 02-22 01:07 → 6NMEDSUR 02-22 14:30 → 4SSUR 02-22 14:30 → UNDODISIN 02-25 14:31
PROVIDERS: ADMIT Family Medicine; ATTEND Family Medicine
DX: E11.621 Type 2 diabetes mellitus with foot ulcer (principal); L97.529 Non-pressure chronic ulcer of other part of left foot with unspecified severity; E11.628 Type 2 diabetes mellitus with other skin complications; L03.116 Cellulitis of left lower limb; B95.62 Methicillin resistant Staphylococcus aureus infection as the cause of diseases classified elsewhere; E11.42 Type 2 diabetes mellitus with diabetic polyneuropathy; J44.9 Chronic obstructive pulmonary disease, unspecified; K21.9 Gastro-esophageal reflux disease without esophagitis; I12.9 Hypertensive chronic kidney disease with stage 1 through stage 4 chronic kidney disease, or unspecified chronic kidney disease; E78.5 Hyperlipidemia, unspecified; E11.22 Type 2 diabetes mellitus with diabetic chronic kidney disease; N18.2 Chronic kidney disease, stage 2 (mild); E03.9 Hypothyroidism, unspecified; F32.9 Major depressive disorder, single episode, unspecified; F10.11 Alcohol abuse, in remission; R51 Headache; R11.0 Nausea; M19.90 Unspecified osteoarthritis, unspecified site; A60.00 Herpesviral infection of urogenital system, unspecified; M77.32 Calcaneal spur, left foot; M19.072 Primary osteoarthritis, left ankle and foot; M19.071 Primary osteoarthritis, right ankle and foot; Z87.891 Personal history of nicotine dependence; Z86.718 Personal history of other venous thrombosis and embolism; Z79.890 Hormone replacement therapy; Z79.82 Long term (current) use of aspirin; Z79.899 Other long term (current) drug therapy; Z79.4 Long term (current) use of insulin; Z87.01 Personal history of pneumonia (recurrent); Z86.19 Personal history of other infectious and parasitic diseases; Z86.14 Personal history of Methicillin resistant Staphylococcus aureus infection; Z90.49 Acquired absence of other specified parts of digestive tract; Z98.890 Other specified postprocedural states; Z90.710 Acquired absence of both cervix and uterus; Z90.89 Acquired absence of other organs; Z86.69 Personal history of other diseases of the nervous system and sense organs; Z91.89 Other specified personal risk factors, not elsewhere classified; Z81.1 Family history of alcohol abuse and dependence; Z82.49 Family history of ischemic heart disease and other diseases of the circulatory system; Z83.3 Family history of diabetes mellitus; Z82.61 Family history of arthritis; Z81.8 Family history of other mental and behavioral disorders
CPT/HCPCS: 96376; 96361; 96365; 96366 ×2; 96367; 96375; 99285; 36415; 80053; 80048 ×2; 82565; 83605; 85025 ×2; 85027; 80202 ×2; 85610; 85730; 87070; 87205; 87077; 87186; 73630 ×2; 93971; 78315; A9503; G0378 ×5; J2543; J3370 ×5; J2270; J1940; J2405 ×3

== ENCOUNTER → 2019-04-12 | Outpatient (CLI) | payer MEDICARE, OTHER ==
[2019-04-12 14:57] LABS: Basophils % (A) 0 %; Eosinophils # (A) 0.3 k/uL (0-0.7); Eosinophils % (A) 3 %; HGB 11.6 gm/dL (11.4-16.0); Lymphocytes # (A) 2.1 k/uL (1.0-4.8); Lymphocytes % (A) 24 %; MCH 27.9 pg (25.0-35.0); MCHC 32.2 g/dL (31.0-37.0); MCV 86.6 fL (80.0-100.0); Mean Platelet Volume 8.8; Monocytes # (A) 0.4 k/uL (0-1.0); Monocytes % (A) 4 %; Neutrophils # (A) 5.8 k/uL (1.3-7.7); Neutrophils % (A) 67 %; Platelet Count 230 k/uL (150-450); RBC 4.15 m/uL (3.80-5.40); RDW 13.6 % (11.5-15.5); WBC 8.7 k/uL (3.8-10.6)
[2019-04-12 14:58] LABS: Appearance,Urine Clear (Clear); Bilirubin,Urine Negative (Negative); Blood,Urine Trace (Negative); Color,Urine Yellow; Glucose,Urine (UA) Negative (Negative); Ketones,Urine Negative (Negative); Leukocyte Esterase,Urine Trace (Negative); Mucus,Urine Rare /hpf; Nitrite,Urine Negative (Negative); PH, Urine 5.5 (5.0-8.0); Protein,Urine 2+ (Negative); RBC,Urine 2 /hpf (0-5); Specific Gravity,Urine 1.016 (1.001-1.035); Urobilinogen,Urine <2.0 mg/dL (<2.0); WBC,Urine 3 /hpf (0-5)
[2019-04-12 15:10] LABS: Protein/Creatinine Ratio,Urine 1.661
[2019-04-12 18:58] LABS: % Iron Saturation 16.73 (12.00-45.00); African American GFR (CKD) 68.9 (60.0-200.0); Albumin 4.1 g/dL (3.80-4.90); Anion Gap 7.3 mmol/L (4.00-12.00); Calcium 9.1 mg/dL (8.7-10.3); Carbon Dioxide 30.7 mmol/L (21.6-31.8); Magnesium 1.4 mg/dL (1.5-2.4); Non-African American GFR(CKD) 59.5 (60.0-200.0); Phosphorus 4.2 mg/dL (2.4-5.1); Potassium 4.5 mmol/L (3.5-5.5); Uric Acid 5.5 mg/dL (2.9-7.7)
[2019-04-12 19:07] LABS: Ferritin 206.9 ng/mL (10.0-291.0)
== END | disposition home or self-care (01) ==
LOC: LABWHC1 14:16
PROVIDERS: ATTEND Internal Medicine Nephrology
DX: R80.9 Proteinuria, unspecified (principal); D64.9 Anemia, unspecified; E55.9 Vitamin D deficiency, unspecified; M10.9 Gout, unspecified
CPT/HCPCS: 36415; 80048; 81001; 82040; 82306; 82570; 82728; 83540; 83550; 83735; 83970; 84100; 84156; 84550; 85025

== ENCOUNTER → 2019-04-27 | Outpatient (CLI) | payer MEDICARE, OTHER ==
--- NOTE | 2019-04-27 16:49 | PN ---
PROGRESS NOTE DATE OF SERVICE: 04/27/2019 This patient is a 63-year-old lady who has [facility] of obstructive sleep apnea-hypopnea syndrome. The patient had a sleep study several months ago which showed that she has obstructive sleep apnea with apnea-hypopnea index 16.4 and oxygen desaturation to 80.3%. I explained the results of her sleep studies to the patient in detail. After that she was started on treatment with CPAP, and actually this is her first visit after she was started on treatment with CPAP. She is using a full-face mask. I checked her CPAP unit. Pressure is 12 cm of water. For the last month, the patient used it 28/30 nights, and 19/30 nights for more than 4 hours, with average usage 4.4 hours per night. Leak is 4 L/minute, which is a good range for full-face mask. Apnea- hypopnea index is only 0.7, which is absolutely perfect. Jenkins Sleepiness Scale is still increased at 13 today. MEDICATIONS: Glipizide, levothyroxine, famotidine, Lantus, doxycycline, calcitriol, atorvastatin, losartan, acetaminophen, dicyclomine. PHYSICAL EXAMINATION: GENERAL: A pleasant patient in no distress. VITAL SIGNS: BP 115/54, HR 86, RR 16, weight 211, temperature 97.7, oxygen saturation at room air 94%. HEENT: PERRLA, EOMI. Evaluation of oropharynx showed tongue protrudes midline. Low position of soft palate. Mallampati III to IV. NECK: Supple. No JVD. Thyroid is not palpable. LUNGS: Clear to percussion and to auscultation. Good air exchange. No wheezing or rhonchi. HEART: S1, S2 regular. No murmurs, gallops or rubs. ABDOMEN: Obese. EXTREMITIES: No clubbing or cyanosis. COMMUNITY HEALTH EDUCATION COORDINATOR: Awake, alert, and oriented X3. Cranial nerves 2 to 7 intact. There is no fasciculation or atrophy. noted. No focal deficits observed. IMPRESSION: 1. Obstructive sleep apnea-hypopnea syndrome. Patient demonstrated borderline compliance with treatment, benefitting from treatment. 2. Obesity. 3. Hypertension. 4. Diabetes mellitus. 5. Hypothyroidism. 6. Hyperlipidemia. 7. History of fibromyalgia. 8. Acid reflux. 9. Sleep delay syndrome. PLAN: 1. Patient will continue to use CPAP equipment every night for the whole night. 2. Losing weight. 3. Sleep hygiene with regular time in bed for 7-1/2 to 8 hours. 4. Precautions related to driving. No driving if she feels any sleepiness. 5. I will write prescriptions for all necessary CPAP supplies, including mask, heated tube, filters. Thank you very much for allowing me to participate in the management of your patient. Sincerely, Juan Carlos Baez MD, PhD, FAASM Diplomat of [employer] [facility] MMODL / IJN: [id number] /
== END | disposition home or self-care (01) ==
LOC: SLEEP 15:41
PROVIDERS: ATTEND Internal Medicine
DX: G47.33 Obstructive sleep apnea (adult) (pediatric) (principal); E66.9 Obesity, unspecified; I10 Essential (primary) hypertension; E11.9 Type 2 diabetes mellitus without complications; E03.9 Hypothyroidism, unspecified; E78.5 Hyperlipidemia, unspecified; Z87.39 Personal history of other diseases of the musculoskeletal system and connective tissue; K21.9 Gastro-esophageal reflux disease without esophagitis; G47.21 Circadian rhythm sleep disorder, delayed sleep phase type; Z99.89 Dependence on other enabling machines and devices; Z79.890 Hormone replacement therapy; Z79.4 Long term (current) use of insulin; Z79.899 Other long term (current) drug therapy; Z79.2 Long term (current) use of antibiotics

== ENCOUNTER 2019-05-02 06:57 | Day surgery (SDC) | payer MEDICARE, OTHER ==
[2019-04-27 15:16] VITALS: BMI 36.2
[~2019-05-02 06:57] MED LIST changes: +LIDOCAINE 1% (10MG/ML) FOR IV START INTRADERMA PRN
[2019-05-02 07:29] VITALS: RESP 16; TEMP 98.6
[2019-05-02 07:30] LABS: Glucose,Whole Blood 120 mg/dL (75-99)
[2019-05-02] MEDS ORDERED: PROPOFOL 10 MG/ML 20 ML VIAL IV ONE (07:43)
[2019-05-02] MEDS ORDERED: LIDOCAINE 1% INJ 10MG/ML (20 ML MDV) ONE (07:43)
--- NOTE | 2019-05-02 08:27 | P.PCN ---
Date of Procedure: 05/02/19 Description of Procedure: Brief history: Patient is a pleasant scheduled for an elective upper endoscopy as well as colonoscopy as a part of evaluation of GERD and a change in bowel habits. Patient has long-standing history of GERD and previously underwent Lucy fundoplication. Last colonoscopy was over 5 years ago. The patient reports a history of constipation. Procedure performed: Esophagogastroduodenoscopy with biopsy Colonoscopy with polypectomy Estimated blood loss: Minimal. Preoperative diagnosis: GERD, change in bowel habits, last colonoscopy over 5 years ago Anesthesia: MAC Procedure: After informed consent was obtained from the patient was brought into the en doscopy unit and IV sedation was administered by anesthesia under continuous monitoring. Initially upper endoscopy was done. The Olympus GF 190 video endoscope was inserted into the mouth and esophagus intubated without any difficulty and was gradually advanced into the stomach and duodenum and carefully examined. The bulb and second part of the duodenum appeared normal, with biopsies taken. The scope was then withdrawn into the stomach adequately insufflated with air and upon careful examination the antrum and body, cardia and fundus appeared normal, except for some mild scattered erythema in the antrum and body suggestive of mild gastritis with biopsies taken. The scope was then withdrawn into the esophagus. The GE junction was located at 39 cm to the incisors and appeared regular with biopsies taken. Evidence of prior Lucy fundoplication was present. It appeared regular with no erythema erosions or ulcerations. Rest of the esophagus appeared normal. Patient tolerated the procedure well. At this time the patient continued to remain sedation. Initial digital rectal examination was normal. Olympus CF 190 video colonoscope was then inserted into the rectum and gradually advanced to the cecum without any difficulty. Careful examination was performed as the scope was gradually being withdrawn. The prep was excellent. The cecum, ascending colon, transverse colon, descending colon, sigmoid colon and rectum appeared normal. A small 3 mm cecal polyp was removed cold snare polypectomy. A small 2 mm ascending colon polyp was removed with cold snare polypectomy. A few scattered diverticula noted in the left colon. Low-grade internal hemorrhoids. Retroflexion was performed in the rectum and no lesions were noted. Patient tolerated the procedure well. Impression: 1. Mild gastritis antrum body, biopsied. Biopsies of the duodenum and GE junction. Status post Lucy fundoplication. 2. Small polyps removed from the cecum and ascending colon with cold snare polypectomy. Mild left colonic diverticulosis. Low-grade internal hemorrhoids. Recommendations: Findings of this examination were discussed with the patient as well as her sister. Okay to resume diet. Okay to resume medications. No pathology from biopsies and polypectomy. Would recommend repeat colonoscopy in 5 years for colon polyps, pending pathology from polypectomies and biopsies.
[2019-05-02 08:45] VITALS: BP 156/55; PULSE 76
[2019-05-02 08:45] LABS: Glucose,Whole Blood 115 mg/dL (75-99)
== END 2019-05-02 09:18 ==
LOC: ORWHC2ENDO 06:57
PROVIDERS: ATTEND Internal Medicine
DX: K21.9 Gastro-esophageal reflux disease without esophagitis (principal); K29.80 Duodenitis without bleeding; K29.50 Unspecified chronic gastritis without bleeding; K22.8 Other specified diseases of esophagus; K63.5 Polyp of colon; K63.3 Ulcer of intestine; K57.30 Diverticulosis of large intestine without perforation or abscess without bleeding; K64.8 Other hemorrhoids; E11.8 Type 2 diabetes mellitus with unspecified complications; I10 Essential (primary) hypertension; E78.5 Hyperlipidemia, unspecified; J44.9 Chronic obstructive pulmonary disease, unspecified; E07.9 Disorder of thyroid, unspecified; Z87.19 Personal history of other diseases of the digestive system; Z87.891 Personal history of nicotine dependence; Z79.899 Other long term (current) drug therapy; Z79.890 Hormone replacement therapy; Z79.4 Long term (current) use of insulin; Z79.82 Long term (current) use of aspirin; Z90.49 Acquired absence of other specified parts of digestive tract; Z90.710 Acquired absence of both cervix and uterus; Z98.890 Other specified postprocedural states; Z86.69 Personal history of other diseases of the nervous system and sense organs; Z90.89 Acquired absence of other organs; Z90.79 Acquired absence of other genital organ(s); Z97.2 Presence of dental prosthetic device (complete) (partial); Z86.73 Personal history of transient ischemic attack (TIA), and cerebral infarction without residual deficits; Z86.718 Personal history of other venous thrombosis and embolism
CPT/HCPCS: 88305; 45385; 43239; J2001; J2704

== ENCOUNTER → 2019-09-09 | Outpatient (CLI) | payer MEDICARE, OTHER ==
--- NOTE | 2019-09-09 14:15 | US ---
EXAMINATION TYPE: US venous doppler duplex LE LT DATE OF EXAM: 09/09/2019 2:00 PM COMPARISON: NONE CLINICAL HISTORY: M79.662 PAIN IN LT LOWER LEG. Pain left leg SIDE PERFORMED: left TECHNIQUE: The lower extremity deep venous system is examined utilizing real time linear array sonog aubree with graded compression, doppler sonography and color-flow sonography. VESSELS IMAGED: External Iliac Vein (EIV) Common Femoral Vein Deep Femoral Vein Greater Saphenous Vein * Femoral Vein Popliteal Vein Small Saphenous Vein * Proximal Calf Veins (* superficial vessels) Left Leg: No evidence of DVT as visualized IMPRESSION: 1. No diagnostic evidence of DVT as visualized.
== END | disposition home or self-care (01) ==
LOC: RADUSWWP 13:38
PROVIDERS: ATTEND Family Medicine
DX: M79.662 Pain in left lower leg (principal)

== ENCOUNTER → 2020-01-03 | Outpatient (CLI) | payer MEDICARE, OTHER ==
[2020-01-03 16:16] VITALS: BP 167/78; PULSE 91; RESP 18; TEMP 98.4
--- NOTE | 2020-01-03 17:14 | P.HPOB ---
History of Present Illness H&P Date: 01/03/20 Chief Complaint: The patient is here for her routine gynecologic exam and ma mmogram. This is a 64-year-old 002 with an LMP of 2006. The patient is status post vaginal hysterectomy for benign reasons. The patient has been experiencing left breast tenderness for several years. She denies any palpable masses on self exam. She is complaining of abdominal bloating and at times she feels "10 months ". It does improve at other times, but she seems to feel bloated the majority of the days. She is otherwise without complaints. Review of Systems Weight has been stable. She denies respiratory, cardiac and G.I. problems. She states bowel movements are regular. She does see Dr. Root for occasional palpitations. She denies maltreatment or problems with falling. : she denies any significant problems with urinary leakage. Past Medical History Past Medical History: COPD, Diabetes Mellitus, Deep Vein Thrombosis (DVT), GERD/Reflux, Hyperlipidemia, Hypertension, Osteoarthritis (OA), Pneumonia, Renal Disease, Thyroid Disorder Additional Past Medical History / Comment(s): DM type II insulin requiring, neuropathy bilateral feet, pt states she is followed by Dr. De La Torre prophyllactically d/t diabetes but does not have kidney disease as yet, DVT L lower extremity, arthritis in biltateral hands/feet and back, chronic back pain, hypothyroid. 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 History of Any Multi-Drug Resistant Organisms: MRSA Date of last positivie culture/infection: February MDRO Source:: Foot Past Surgical History: Appendectomy, Cholecystectomy, Hernia Repair, Hysterectomy, Orthopedic Surgery, Tonsillectomy Additional Past Surgical History / Comment(s): Lucy fundoplasty, L salpingectomy/oophorectomy as a teen d/t cysts, lysis of abdominal adhesions, EGD, bilateral hands I & Ds, laser eye surgery, multiple left breast biopsies, bilateral carpal tunnel releases, TTT. Colonoscopy(polyps removed) with upper endoscopy 2019. Past Anesthesia/Blood Transfusion Reactions: No Reported Reaction Additional Past Anesthesia/Blood Transfusion Reaction / Comment(s): PT HAD SWELLING OF FACE WITH ANESTHESIA DURING HYSTERECTOMY, BUT NO PROBLEMS SINCE. HAS NEVER RECEIVED BLOOD Past Psychological History: Depression Additional Psychological History / Comment(s): Pt resides alone. She has 2 cats. She is independent. Smoking Status: Former smoker Past Alcohol Use History: None Reported, Abuse, Heavy Additional Past Alcohol Use History / Comment(s): Pt started smoking in 1969 and quit in 1998. She was smoking 1 ppd. Patient states that she is a recovering alcoholic. Patient stated she quit drinking 1993. Past Drug Use History: Marijuana Additional Drug Use History / Comment(s): Marijuana use as a teenager. Nothing recent. Additional History: She is single and has not been sexually active for many years. - Past Family History Sister(s) Additional Family Medical History / Comment(s): Alcoholic. Father Family Medical History: Congestive Heart Failure (CHF), Coronary Artery Disease (CAD), Diabetes Mellitus, Myocardial Infarction (ID) Additional Family Medical History / Comment(s): heart problems, CABG, at age 81yrs. Mother Family Medical History: Coronary Artery Disease (CAD), Diabetes Mellitus, Osteoarthritis (OA) Additional Family Medical History / Comment(s): Mother committed suicide in 1973. Chemical imbalance in the brain runs on pt's mother's side of family Medications and Allergies Home Medications Medication Instructions Recorded Confirmed Type Levothyroxine Sodium [Synthroid] 125 mcg PO DAILY 03/02/14 01/03/20 History Famotidine [Pepcid] 20 mg PO BID 30 Days #60 tablet 09/12/17 01/03/20 Rx Atorvastatin [Lipitor] 40 mg PO HS tab 11/03/17 01/03/20 Rx Ergocalciferol (Vitamin D2) 50,000 unit PO Q14D 11/03/18 01/03/20 History [Vitamin D2] Insulin Glargine,Hum.rec.anlog 30 unit SQ QAM 11/03/18 01/03/20 History [Lantus Solostar] calcitrioL [Calcitriol] 0.25 mcg PO BEYER 11/03/18 01/03/20 History metFORMIN HCL [Glucophage] 500 mg PO BID 11/03/18 01/03/20 History Aspirin EC [Ecotrin Low Dose] 81 mg PO DAILY 02/21/19 01/03/20 History Acetaminophen Tab [Tylenol] 325 mg PO Q4HR PRN tab 02/25/19 01/03/20 Rx Dicyclomine [Bentyl] 20 mg PO BID 04/27/19 01/03/20 History Losartan [Cozaar] 50 mg PO DAILY 04/27/19 01/03/20 History Dulaglutide [Trulicity] 0.75 mg SQ WEEKLY 01/03/20 01/03/20 History Furosemide [Lasix] 20 mg PO DAILY 01/03/20 01/03/20 History Allergies Allergy/AdvReac Type Severity Reaction Status Date / Time No Known Allergies Allergy Verified 01/03/20 16:01 Exam Vital Signs Temp Pulse Resp BP Pulse Ox 01/03/20 16:08 98.4 F 91 18 167/78 93 L Intake and Output 01/03/20 01/03/20 01/03/20 06:59 14:59 22:59 Other: Weight 96.162 kg Height 5 feet 3 inches, weight 212 pounds, BMI 37.6. This is a well-developed well-nourished heavyset white female who is alert and oriented times 3 in no acute distress. HEENT: Within normal limits. NECK: Supple without mass or thyromegaly. CHEST AND LUNGS: Clear to auscultation. HEART: Regular rate and rhythm. BREASTS: Are without mass or discharge. There is mild to moderate left breast tenderness greatest between the 3:00 and 7:00 positions with no palpable masses. She states this breast has been tender for many years. AXILLARY EXAM: Negative for adenopathy. BACK: Negative for CVA tenderness. ABDOMEN: Soft, obese, nontender, without palpable masses. PELVIC EXAM: External genitalia appears reveals nonpigmented skin in the area of the labia minora and labia majora, perineum and perianal areas. This is well demarcated and symmetric. This is unchanged from her previous examination.. Vagina appears normal with mild atrophy. There is no evidence of prolapse. Bimanual examination is negative for mass. There is minimal generalized pelvic tenderness with bimanual examination. Bimanual examination is somewhat limited secondary to her size. RECTAL EXAM: Rectovaginal exam is negative for mass or tenderness and is negative for occult blood. EXTREMITIES: Nontender. Skin: There is also nonpigmented areas on the backs of her hands and this is unchanged from her previous examination. IMPRESSION: 1. 64-year-old menopausal female status post vaginal hysterectomy for benign reasons with nonpigmented areas involving the hands and vulvar regions. Suspected vitiligo. Otherwise unremarkable gynecologic exam. 2. Left breast tenderness without palpable mass and this is chronic in nature. 3. Abdominal bloating. Most likely this does not represent a gynecologic condition, however, ovarian neoplasm causing the bloating would be included in the differential diagnosis. PLAN: 1. Pap smears have been discontinued. 2. Self breast awareness was discussed with the patient. 3. Screening mammogram will be done today. 4. Pelvic ultrasound was recommended to check for any type of ovarian neoplasm. If there is no evidence of ovarian neoplasm, she will follow up with her PCP for the bloating and for possible additional workup. 5. Osteoporosis prevention was discussed. I have stressed the importance of adequate calcium, vitamin D and regular exercise. Recommended amounts of calcium and vitamin D were also discussed. 6. She did receive her flu shot this fall. 7. She was advised to return in one year for her annual well woman exam.
--- NOTE | 2020-01-04 09:49 | MM ---
Reason for exam: screening (asymptomatic). Last mammogram was performed 1 year and 2 months ago. History: Excisional biopsy of the left breast. Physical Findings: A clinical breast exam by your physician is recommended on an annual basis and results should be correlated with mammographic findings. MG 3D Screening Mammo W/Cad Bilateral CC and MLO view(s) were taken. Prior study comparison: November 03, 2018, bilateral MG 3d screening mammo w/cad. December 03, 2016, bilateral MG screening mammo w CAD. There are scattered fibroglandular densities. There is no discrete abnormality. No significant changes when compared with prior studies. ASSESSMENT: Benign, BI-RAD 2 RECOMMENDATION: Routine screening mammogram of both breasts in 1 year.
== END | disposition home or self-care (01) ==
LOC: WWCWWP 15:52
PROVIDERS: ATTEND Obstetrics & Gynecology
DX: Z12.31 Encounter for screening mammogram for malignant neoplasm of breast (principal)
CPT/HCPCS: 77063; 77067

== ENCOUNTER → 2020-01-11 | Outpatient (CLI) | payer MEDICARE, OTHER ==
--- NOTE | 2020-01-11 15:14 | US ---
EXAMINATION TYPE: US pelvis limited transvag DATE OF EXAM: 01/11/2020 COMPARISON: CT 2016 CLINICAL HISTORY: R14.0, C56.9 Ovarian Neoplasm. TECHNIQUE: Transvaginal (TV) and Transabdominal (TA) . Transabdominal sonographic images of the pel vis were acquired. Transvaginal sonographic images were medically necessary to better assess the fol lowing anatomy: Ovaries Date of LMP: 2006 EXAM MEASUREMENTS: Uterus: not identified Endometrial Stripe: not identified Right Ovary: not identified Left Ovary: not identified Patient is poor historian, states something was done because she had bad periods, unsure what. 1. Uterus: not identified 2. Endometrium: not identified 3. Right Ovary: not identified 4. Left Ovary: not identified 5. Bilateral Adnexa: wnl 6. Posterior cul-de-sac: no free fluid IMPRESSION: No distinct mass identified at this time.
== END | disposition home or self-care (01) ==
LOC: RADUSWWP 14:15
PROVIDERS: ATTEND Obstetrics & Gynecology
DX: C56.9 Malignant neoplasm of unspecified ovary (principal); R14.0 Abdominal distension (gaseous)
CPT/HCPCS: 76830; 76857

== ENCOUNTER → 2020-04-13 | Outpatient (CLI) | payer MEDICARE, OTHER ==
[2020-04-14 01:09] LABS: Hemoglobin A1C 8.1 % (4.0-6.0)
[2020-04-14 01:39] LABS: Urine Creatinine 121.3 mg/dL
[2020-04-14 01:58] LABS: African American GFR (CKD) 54.9 (60.0-200.0); Anion Gap 8.2 mmol/L (4.00-12.00); BUN/Creat Ratio 16.67 Ratio (12.00-20.00); Carbon Dioxide 29.8 mmol/L (21.6-31.8); Chol/HDL Ratio 2.74; Non-African American GFR(CKD) 47.4 (60.0-200.0); Potassium 4.4 mmol/L (3.5-5.5)
[2020-04-14 02:07] LABS: T4, Free (Free Thyroxine) 1.7 ng/dL (0.80-1.80)
== END | disposition home or self-care (01) ==
LOC: LABWHC1 12:45
PROVIDERS: ATTEND Nurse Practitioner Adult Health
DX: E03.9 Hypothyroidism, unspecified (principal); E11.65 Type 2 diabetes mellitus with hyperglycemia; E78.5 Hyperlipidemia, unspecified
CPT/HCPCS: 36415; 80048; 80061; 82043; 82570; 83036; 84439; 84443

== ENCOUNTER → 2020-05-12 | Outpatient (CLI) | payer MEDICARE, OTHER ==
--- NOTE | 2020-05-13 08:25 | MR ---
EXAMINATION TYPE: MR lumbar spine wo con DATE OF EXAM: 05/12/2020 3:42 PM COMPARISON: NONE HISTORY: Lower back pain Multiplanar, MultiSpin echo imaging of the lumbar spine was performed. L1-L2: Normal disc appearance without desiccation. No herniation, protrusion or disc bulging. No ca nal stenosis is present. Foramina are patent bilaterally. L2-L3: Moderate disc desiccation with posterior disc bulge. Mild effacement ventral thecal sac withou t evidence for central stenosis. Facet joint arthropathy with mild left-sided foraminal encroachment. L3-L4: Moderate to severe degenerative disc disease. Grade 1 anterolisthesis L3 on L4 measuring 3 mm. Posterior disc bulge as well as hypertrophy of the ligamentum flavum and facet joint arthropathy con tribute to moderate central stenosis. Bilateral foraminal encroachment identified. L4-L5: Severe degenerative disc disease. Broad-based posterior disc bulge with effacement ventral the kaden sac and left lateral recess stenosis. Borderline central stenosis suggested. Facet joint arthropa thy right greater than left foraminal encroachment. L5-S1: Mild disc desiccation with mild posterior disc bulge. No canal stenosis is present. Foramina are patent bilaterally. Lumbar segments are intact. Scattered ventral spondylosis. No paraspinal masses are identified. Bon e marrow signal is somewhat heterogenous and this could reflect bone marrow reconversion. Correlate w ith CBC. Conus medullaris has a normal appearance. IMPRESSION: 1. Multilevel degenerative disc disease. 2. Central stenosis at L3-4 and borderline stenosis at L4-5. 3.Bone marrow signal is somewhat heterogenous and this could reflect bone marrow reconversion. Correl ate with CBC.
== END ==
LOC: RADMRIMAIN 13:48
PROVIDERS: ATTEND Family Medicine
DX: M48.061 Spinal stenosis, lumbar region without neurogenic claudication (principal); M47.816 Spondylosis without myelopathy or radiculopathy, lumbar region
CPT/HCPCS: 72148

== ENCOUNTER → 2020-06-18 | Outpatient (CLI) | payer MEDICARE, OTHER ==
--- NOTE | 2020-06-18 17:17 | XR ---
Result: History: Right hip pain. Comparison: None available. Technique: 2 views of the right hip. Findings: The bone mineralization is appropriate for age. There is no acute fracture or dislocation. The visualized osseous structures are in anatomic alignme nt. There is mild osteoarthritis of the right hip. Atherosclerotic calcifications are seen. Impression: Mild osteoarthritis without acute osseous abnormality.
== END | disposition home or self-care (01) ==
LOC: RADXRMAIN 16:56
PROVIDERS: ATTEND Psychiatry & Neurology Neurology
DX: M16.11 Unilateral primary osteoarthritis, right hip (principal)
CPT/HCPCS: 73502

== ENCOUNTER → 2020-07-09 | Outpatient (CLI) | payer MEDICARE, OTHER ==
[2020-07-09 19:26] LABS: Calcium 9.1 mg/dL (8.7-10.3); Chol/HDL Ratio 2.85; LDL Cholesterol,Calculated 46.4 mg/dL (0.0-131.0); Non-African American GFR(CKD) 58.7 (60.0-200.0); Potassium 4.5 mmol/L (3.5-5.5); VLDL Calculation 27.6 mg/dL (5.00-40.00)
[2020-07-09 19:34] LABS: T4, Free (Free Thyroxine) 1.5 ng/dL (0.80-1.80)
[2020-07-09 22:14] LABS: Hemoglobin A1C 7.9 % (4.0-6.0)
[2020-07-10 00:56] LABS: Urine Creatinine 216.4 mg/dL
== END | disposition home or self-care (01) ==
LOC: LABWHC1 13:27
PROVIDERS: ATTEND Internal Medicine
DX: E11.65 Type 2 diabetes mellitus with hyperglycemia (principal)
CPT/HCPCS: 36415; 80048; 80061; 82043; 82570; 83036; 84439; 84443

== ENCOUNTER → 2021-02-26 | Outpatient (CLI) | payer MEDICARE, OTHER ==
[2021-02-26 14:13] VITALS: BP 146/82; PULSE 90; RESP 18; TEMP 98.1
--- NOTE | 2021-02-26 15:07 | P.HPOB ---
History of Present Illness H&P Date: 02/26/21 Chief Complaint: The patient is here for her routine gynecologic exam and ma mmogram. This is a 65-year-old 002 with an LMP of 2006. The patient is status post vaginal hysterectomy for benign reasons. She continues to have some left breast tenderness for many years. During the past week she has also noticed burning with urination that is intermittent. She also has times when she feels like she needs to urinate and a very small amount comes out. She has not had many UTIs in the past. She is otherwise without complaints. Review of Systems The patient has lost 18 pounds over the last year. Her weight loss has been intentional and this has been mostly by eating better. She denies respiratory, cardiac, or G.I. problems. Past Medical History Past Medical History: COPD, Diabetes Mellitus, Deep Vein Thrombosis (DVT), GERD/Reflux, Hyperlipidemia, Hypertension, Osteoarthritis (OA), Pneumonia, Renal Disease, Thyroid Disorder Additional Past Medical History / Comment(s): DM type II insulin requiring, neuropathy bilateral feet, pt states she is followed by Dr. De La Torre prophyllactically d/t diabetes but does not have kidney disease as yet, DVT L lower extremity, arthritis in biltateral hands/feet and back, chronic back pain, hypothyroid. 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 History of Any Multi-Drug Resistant Organisms: MRSA Date of last positivie culture/infection: February MDRO Source:: Foot Past Surgical History: Appendectomy, Cholecystectomy, Hernia Repair, Hysterectomy, Orthopedic Surgery, Tonsillectomy Additional Past Surgical History / Comment(s): Lucy fundoplasty, L salping ectomy/oophorectomy as a teen d/t cysts, lysis of abdominal adhesions, EGD, bilateral hands I & Ds, laser eye surgery, multiple left breast biopsies, bilateral carpal tunnel releases, TTT. Colonoscopy(polyps removed) with upper endoscopy 2019. Past Anesthesia/Blood Transfusion Reactions: No Reported Reaction Additional Past Anesthesia/Blood Transfusion Reaction / Comment(s): PT HAD SWELLING OF FACE WITH ANESTHESIA DURING HYSTERECTOMY, BUT NO PROBLEMS SINCE. HAS NEVER RECEIVED BLOOD Past Psychological History: Depression Additional Psychological History / Comment(s): Pt resides alone. She has 2 cats. She is independent. Smoking Status: Former smoker Past Alcohol Use History: None Reported, Abuse, Heavy Additional Past Alcohol Use History / Comment(s): Pt started smoking in 1969 and quit in 1998. She was smoking 1 ppd. Patient states that she is a recovering alcoholic. Patient stated she quit drinking 1993. Past Drug Use History: Marijuana Additional Drug Use History / Comment(s): Marijuana use as a teenager. Nothing recent. Additional History: She is single and has not been sexually active for many years. - Past Family History Sister(s) Additional Family Medical History / Comment(s): Alcoholic. Father Family Medical History: Congestive Heart Failure (CHF), Coronary Artery Disease (CAD), Diabetes Mellitus, Myocardial Infarction ([place]) Additional Family Medical History / Comment(s): heart problems, CABG, at age 81yrs. Mother Family Medical History: Coronary Artery Disease (CAD), Diabetes Mellitus, Osteoarthritis (OA) Additional Family Medical History / Comment(s): Mother committed suicide in 1973. Chemical imbalance in the brain runs on pt's mother's side of family Brother(s) Family Medical History: CVA/TIA Medications and Allergies Home Medications Medication Instructions Recorded Confirmed Type Levothyroxine Sodium [Synthroid] 125 mcg PO DAILY 03/02/14 02/26/21 History Famotidine [Pepcid] 20 mg PO BID 30 Days #60 tablet 09/12/17 02/26/21 Rx Ergocalciferol (Vitamin D2) 50,000 unit PO BEYER 11/03/18 02/26/21 History [Vitamin D2] Insulin Glargine,Hum.rec.anlog 30 unit SQ QAM 11/03/18 02/26/21 History [Lantus Solostar Pen] calcitrioL [Calcitriol] 0.25 mcg PO BEYER 11/03/18 02/26/21 History metFORMIN HCL [Glucophage] 500 mg PO BID 11/03/18 02/26/21 History Aspirin EC [Ecotrin Low Dose] 81 mg PO DAILY 02/21/19 02/26/21 History Acetaminophen Tab [Tylenol] 325 mg PO Q4HR PRN tab 02/25/19 02/26/21 Rx Losartan [Cozaar] 50 mg PO DAILY 04/27/19 02/26/21 History Dulaglutide [Trulicity] 0.75 mg SQ WEEKLY 01/03/20 02/26/21 History Furosemide [Lasix] 20 mg PO DAILY 01/03/20 02/26/21 History Dapagliflozin Propanediol [Farxiga] 10 mg PO QAM 02/26/21 02/26/21 History Gabapentin 300 mg PO HS 02/26/21 02/26/21 History Magnesium Oxide [Mag-Ox] 400 mg PO DAILY 02/26/21 02/26/21 History [place]-3 Fatty Acids [[place]-3] 1,000 mg PO DAILY 02/26/21 02/26/21 History Allergies Allergy/AdvReac Type Severity Reaction Status Date / Time No Known Allergies Allergy Verified 02/26/21 13:59 Exam Vital Signs Temp Pulse Resp BP Pulse Ox 02/26/21 14:00 98.1 F 90 18 146/82 94 L Intake and Output 02/25/21 02/26/21 02/26/21 22:59 06:59 14:59 Other: Weight 87.997 kg Height 5 feet 3 inches, weight 194 pounds, BMI 34.4. This is a well-developed well-nourished white female who is alert and oriented times 3 in no acute distress. Skin: There are non-pigmented areas on the backs of her hands as well as the vulva. This is consistent with her previous exams. HEENT: Within normal limits. NECK: Supple without mass or thyromegaly. CHEST AND LUNGS: Clear to auscultation. HEART: Regular rate and rhythm. BREASTS: Are without mass or discharge. AXILLARY EXAM: Negative for adenopathy. BACK: Negative for CVA tenderness. ABDOMEN: Soft with mild suprapubic tenderness without rebound. There is no other abdominal tenderness. There are no palpable masses. PELVIC EXAM: External genitalia reveals nonpigmented areas in the area of the labia minora and inner labia majora and this extends to the perineum and perianal areas. This is well demarcated and symmetric. The patient denies any symptoms from this. Vagina appears normal with mild atrophy. There is no evidence of prolapse. Bimanual examination is negative for mass and there is mild bladder tenderness. RECTAL EXAM: Rectovaginal exam is negative for mass or tenderness and is negative for occult blood. EXTREMITIES: Nontender. IMPRESSION: 1. 65-year-old menopausal female status post vaginal hysterectomy for benign reasons with nonpigmented areas involving the hands and vulvar regions. Probable vitiligo. This is stable from previous exams. Otherwise unremarkable gynecologic exam. 2. Chronic left breast tenderness without palpable mass. She has had this for years. 3. Recent dysuria and intermittent urinary urgency. Suspect UTI. PLAN: 1. Pap smears have been discontinued. 2. Self breast awareness was discussed with the patient. We have also discussed symptoms associated with inflammatory breast cancer. 3. Screening mammogram will be done today. 4. Osteoporosis prevention was discussed. I have stressed the importance of adequate calcium, vitamin D and regular exercise. Recommended amounts of calcium and vitamin D were also discussed. She had a normal bone density test in 2019 and we will plan on repeating this in approximately 2024. 5. I have recommended that she see a carpenter for the suspected vitiligo. 6. Urine has been sent for urinalysis and urine culture. 7. She has not received a Covid vaccination and has not had known Covid. I have recommended that she get vaccinated for Covid especially since she does have pre-existing conditions that increase her risk for more severe Covid. She will consider this. 8. She was advised to return in one year for her annual well woman exam.
[2021-02-26 17:20] LABS: Appearance,Urine Cloudy (Clear); Bacteria,Urine Rare /hpf; Bilirubin,Urine Negative (Negative); Blood,Urine Negative (Negative); Budding Yeast,Urine Few /hpf; Color,Urine Yellow; Glucose,Urine (UA) 4+ (Negative); Ketones,Urine Negative (Negative); Leukocyte Esterase,Urine Small (Negative); Mucus,Urine Rare /hpf; Nitrite,Urine Negative (Negative); PH, Urine 5.5 (5.0-8.0); Protein,Urine 1+ (Negative); RBC,Urine 4 /hpf (0-5); Squamous Epithelial Cell,Urine 1 /hpf (0-4); Urobilinogen,Urine <2.0 mg/dL (<2.0); WBC,Urine 34 /hpf (0-5)
--- NOTE | 2021-02-27 11:09 | P.PN ---
Progress Note - Text Progress Note Date: 02/27/21 OUTPATIENT FOLLOW-UP NOTE TEST(S)/RESULTS: Urinalysis done on 02/26/2021 showed 4+ for glucose, small leukocyte esterase, 34 white blood cells and few yeast. METHOD OF NOTIFICATION: The patient was notified by phone. PATIENT COMMENTS: She does get frequent yeast infections. DIAGNOSIS: Probable cystitis UTI and prone to yeast infections. DISCUSSION: She will be started on Macrobid 1 by mouth every 12 hours 7 days. I will also prescribe 1 Diflucan pill 150 mg which she will take by mouth 1 after the completion of her Macrobid course if vaginitis symptoms. PLAN: The electronic prescriptions will be sent to [facility] pharmacy on . We will also await the urine culture.
--- NOTE | 2021-02-28 11:54 | MM ---
Reason for exam: screening (asymptomatic). Last mammogram was performed 1 year and 2 months ago. History: Excisional biopsy of the left breast. Physical Findings: A clinical breast exam by your physician is recommended on an annual basis and results should be correlated with mammographic findings. MG 3D Screening Mammo W/Cad Bilateral CC and MLO view(s) were taken. Prior study comparison: January 03, 2020, bilateral MG 3d screening mammo w/cad. November 03, 2018, bilateral MG 3d screening mammo w/cad. There are scattered fibroglandular densities. There are benign appearing round vascular calcifications bilaterally. There is no discrete abnormality. ASSESSMENT: Benign, BI-RAD 2 RECOMMENDATION: Routine screening mammogram of both breasts in 1 year.
== END ==
LOC: WWCWWP 13:43
PROVIDERS: ATTEND Obstetrics & Gynecology
DX: Z12.31 Encounter for screening mammogram for malignant neoplasm of breast (principal); Z01.419 Encounter for gynecological examination (general) (routine) without abnormal findings; R30.0 Dysuria; R39.15 Urgency of urination; N64.4 Mastodynia; J44.9 Chronic obstructive pulmonary disease, unspecified; E78.5 Hyperlipidemia, unspecified; I10 Essential (primary) hypertension; M19.90 Unspecified osteoarthritis, unspecified site; E11.40 Type 2 diabetes mellitus with diabetic neuropathy, unspecified; F32.A Depression, unspecified; Z87.891 Personal history of nicotine dependence; Z86.718 Personal history of other venous thrombosis and embolism; Z79.84 Long term (current) use of oral hypoglycemic drugs; Z79.4 Long term (current) use of insulin; Z90.711 Acquired absence of uterus with remaining cervical stump
CPT/HCPCS: 77063; 77067; 81001; 87086

== ENCOUNTER 2021-07-11 14:12 | Emergency (ER) | payer MEDICARE, OTHER ==
[2021-07-12] MEDS ORDERED: ACETAMINOPHEN TAB 325 MG TAB PO STA (00:06)
--- NOTE | 2021-07-12 00:47 | ED ---
URI HPI - General Time Seen by Provider: 07/11/21 22:26 Limitations: no limitations - History of Present Illness Initial Comments: This patient is 66-year-old woman who presents here at the recommendation of her primary physician to see about having the antibiotic infusion for code infection. The patient states that she had begun to have symptoms on June 29 or . She was then seen by her physician who had tested her and there was a positive result on that following Thursday. Patient states that she had been at home isolating but continues to have a cough and a little bit of diarrhea. Patient denies dyspnea. MD Complaint: fever, cough, other Onset/Timin -: days(s) Severity: moderate Quality: aching Consistency: constant Improves With: nothing Worsens With: nothing Context: sick contacts Associated Symptoms: fever, chills, myalgias, cough, diarrhea - Related Data Home Medications Medication Instructions Recorded Confirmed Levothyroxine Sodium [Synthroid] 125 mcg PO DAILY 03/02/14 02/26/21 Ergocalciferol (Vitamin D2) 50,000 unit PO BEYER 11/03/18 02/26/21 [Vitamin D2] Insulin Glargine,Hum.rec.anlog 30 unit SQ QA 11/03/18 02/26/21 [Lantus Solostar Pen] calcitrioL [Calcitriol] 0.25 mcg PO BEYER 11/03/18 02/26/21 metFORMIN HCL [Glucophage] 500 mg PO BID 11/03/18 02/26/21 Aspirin EC [Ecotrin Low Dose] 81 mg PO DAILY 02/21/19 02/26/21 Losartan [Cozaar] 50 mg PO DAILY 04/27/19 02/26/21 Dulaglutide [Trulicity] 0.75 mg SQ WEEKLY 01/03/20 02/26/21 Furosemide [Lasix] 20 mg PO DAILY 01/03/20 02/26/21 Dapagliflozin Propanediol [Farxiga] 10 mg PO QAM 02/26/21 02/26/21 Gabapentin 300 mg PO HS 02/26/21 02/26/21 Magnesium Oxide [Mag-Ox] 400 mg PO DAILY 02/26/21 02/26/21 [place]-3 Fatty Acids [[place]-3] 1,000 mg PO DAILY 02/26/21 02/26/21 Previous Rx's Medication Instructions Recorded Famotidine [Pepcid] 20 mg PO BID 30 Days #60 tablet 09/12/17 Acetaminophen Tab [Tylenol] 325 mg PO Q4HR PRN tab 02/25/19 Fluconazole [Diflucan] 150 mg PO ONCE #1 tab 02/27/21 Nitrofurantoin Monohyd/M-Cryst 100 mg PO Q12HR 7 Days #14 cap 02/27/21 [Macrobid] Fluconazole [Diflucan] 200 mg PO DAILY 14 Days #14 tab 03/05/21 Terconazole [Terazol 7] 1 applicator VAGINAL HS 7 Days #45 03/27/21 gm predniSONE [Deltasone] 20 mg PO BID #8 tab 07/12/21 Allergies Allergy/AdvReac Type Severity Reaction Status Date / Time No Known Allergies Allergy Verified 02/26/21 13:59 Review of Systems ROS Statement: Those systems with pertinent positive or pertinent negative responses have been documented in the HPI. ROS Other: All systems not noted in ROS Statement are negative. Constitutional: Reports: fever, chills. Denies: weakness Respiratory: Reports: cough. Denies: dyspnea, wheezes Cardiovascular: Denies: chest pain, palpitations, edema Gastrointestinal: Reports: diarrhea. Denies: abdominal pain, nausea, vomiting, constipation, melena, hematochezia Genitourinary: Denies: dysuria, hematuria Musculoskeletal: Denies: back pain Skin: Denies: rash Neurological: Denies: headache, weakness, numbness Past Medical History Past Medical History: COPD, Diabetes Mellitus, Deep Vein Thrombosis (DVT), GERD/Reflux, Hyperlipidemia, Hypertension, Osteoarthritis (OA), Pneumonia, Renal Disease, Thyroid Disorder Additional Past Medical History / Comment(s): DM type II insulin requiring, neuropathy bilateral feet, pt states she is followed by Dr. De La Torre prophyllactically d/t diabetes but does not have kidney disease as yet, DVT L lower extremity, arthritis in biltateral hands/feet and back, chronic back pain, hypothyroid. 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 History of Any Multi-Drug Resistant Organisms: MRSA Date of last positivie culture/infection: February MDRO Source:: Foot Past Surgical History: Appendectomy, Cholecystectomy, Hernia Repair, Hysterectomy, Orthopedic Surgery, Tonsillectomy Additional Past Surgical History / Comment(s): Lucy fundoplasty, L salpingectomy/oophorectomy as a teen d/t cysts, lysis of abdominal adhesions, EGD, bilateral hands I & Ds, laser eye surgery, multiple left breast biopsies, bilateral carpal tunnel releases, TTT. Colonoscopy(polyps removed) with upper endoscopy 2019. Past Anesthesia/Blood Transfusion Reactions: No Reported Reaction Additional Past Anesthesia/Blood Transfusion Reaction / Comment(s): PT HAD SWELLING OF FACE WITH ANESTHESIA DURING HYSTERECTOMY, BUT NO PROBLEMS SINCE. HAS NEVER RECEIVED BLOOD Past Psychological History: Depression Additional Psychological History / Comment(s): Pt resides alone. She has 2 cats. She is independent. Smoking Status: Former smoker Past Alcohol Use History: None Reported, Abuse, Heavy Additional Past Alcohol Use History / Comment(s): Pt started smoking in 1969 and quit in 1998. She was smoking 1 ppd. Patient states that she is a recovering alcoholic. Patient stated she quit drinking 1993. Past Drug Use History: Marijuana Additional Drug Use History / Comment(s): Marijuana use as a teenager. Nothing recent. - Past Family History Sister(s) Additional Family Medical History / Comment(s): Alcoholic. Father Family Medical History: Congestive Heart Failure (CHF), Coronary Artery Disease (CAD), Diabetes Mellitus, Myocardial Infarction ([place]) Additional Family Medical History / Comment(s): heart problems, CABG, at age 81yrs. Mother Family Medical History: Coronary Artery Disease (CAD), Diabetes Mellitus, Osteoarthritis (OA) Additional Family Medical History / Comment(s): Mother committed suicide in 1973. Chemical imbalance in the brain runs on pt's mother's side of family Brother(s) Family Medical History: CVA/TIA General Exam General appearance: alert, in no apparent distress Head exam: Present: atraumatic, normocephalic Eye exam: Present: normal appearance. Absent: scleral icterus, conjunctival injection Neck exam: Present: normal inspection Respiratory exam: Present: normal lung sounds bilaterally. Absent: respiratory distress, wheezes, rales, rhonchi, stridor Cardiovascular Exam: Present: regular rate, normal rhythm, normal heart sounds. Absent: systolic murmur, diastolic murmur, rubs, gallop GI/Abdominal exam: Present: soft. Absent: distended, tenderness, guarding, rebound, rigid, mass Extremities exam: Present: normal inspection, normal capillary refill. Absent: pedal edema, calf tenderness Back exam: Present: normal inspection. Absent: CVA tenderness (R), CVA tenderness (L) Neurological exam: Present: alert Skin exam: Present: warm, dry, intact, normal color. Absent: rash Course Vital Signs 07/12/21 01:32 Temperature 97.6 F Pulse Rate 91 Respiratory 19 Rate Blood Pressure 157/98 O2 Sat by Pulse 95 Oximetry Medical Decision Making - Medical Decision Making Shouldn't is 66-year-old woman now over 11 days into code infection. Discussed with patient that the current recommendations for antibody therapy is less than 7 days of symptoms. The patient is doing fairly well with no dyspnea. Her oxygen saturation is normal. Discussed appropriate further care and follow-up as well as return parameters. - Lab Data Lab Results 07/11/21 Range/Units 23:58 Coronavirus (PCR) Not Detected (Not Detectd) Disposition Clinical Impression: COVID-19 Disposition: HOME SELF-CARE Condition: Good Instructions (If sedation given, give patient instructions): COVID-19 (Coronavirus Disease 2019) (ED) Prescriptions: predniSONE [Deltasone] 20 mg PO BID #8 tab Is patient prescribed a controlled substance at d/c from ED?: No Referrals: Marisa Mitchell MD [Primary Care Provider] - 1-2 days
[2021-07-12] MEDS ORDERED: predniSONE 20 MG TAB PO STA (01:19)
[2021-07-12 01:33] VITALS: BP 157/98; PULSE 91; RESP 19; TEMP 97.6
== END 2021-07-12 01:32 | disposition home or self-care (01) ==
LOC: EC 14:12
DX: U07.1 COVID-19 (principal); E11.40 Type 2 diabetes mellitus with diabetic neuropathy, unspecified; I10 Essential (primary) hypertension; J44.9 Chronic obstructive pulmonary disease, unspecified; E78.5 Hyperlipidemia, unspecified; K21.9 Gastro-esophageal reflux disease without esophagitis; M19.90 Unspecified osteoarthritis, unspecified site; E03.9 Hypothyroidism, unspecified; F32.A Depression, unspecified; F12.90 Cannabis use, unspecified, uncomplicated; Z87.891 Personal history of nicotine dependence; Z79.4 Long term (current) use of insulin; Z79.890 Hormone replacement therapy; Z79.84 Long term (current) use of oral hypoglycemic drugs; Z79.82 Long term (current) use of aspirin; Z79.899 Other long term (current) drug therapy
CPT/HCPCS: 87635; 99284

== ENCOUNTER → 2021-10-26 | Outpatient (CLI) | payer MEDICARE, OTHER ==
--- NOTE | 2021-10-27 10:21 | MR ---
EXAMINATION TYPE: MR brain/cspine wo DATE OF EXAM: 10/26/2021 12:47 PM COMPARISON: 06/18/2018 CLINICAL INDICATION:Female, 66 years old with history of M50.90 CERVICAL DISC DISORDER; TECHNIQUE: Multi planar, multi sequence imaging was performed through the brain including: T1, T2, Inversion rec overy, Diffusion weighted imaging, and gradient echo imaging. No gadolinium was given. Multi planar, multi sequence imaging was performed utilizing: T1-weighted, T2-weighted, and turbo inv ersion recovery imaging of the cervical spine. IV Contrast: None FINDINGS: The pennington-white junctions, ventricular system, and cisterns appear unremarkable. Patchy areas of high T2 signal intensity are seen within the periventricular white matter. Midline structures show no abn ormality. Diffusion-weighted imaging shows no evidence of restricted diffusion. Small right temporal mandibular joint effusion/synovial cyst. Small focus of high T1 signal seen within the left frontal l obe measuring 3 mm. And not definitively seen on other sequences C represent a falx lipoma. The bone marrow signal is within normal limits. The paranasal sinuses. Bilateral aphakia. Alignment: The cervical vertebral bodies have preserved heights. Alignment is within normal limits gi joellen patient positioning. Bones: Bone signal is within normal limits. Multilevel degenerative disc disease is noted and most p ronounced at the C7-T1 and T2 vertebral levels. Cord: The spinal cord is unremarkable with regards to their signal intensity and morphology. Discs: Multilevel disc desiccation is present. C2-C3: A disc osteophyte complex is present which minimally narrows the ventral subarachnoid space. Bilateral facet and uncovertebral joint arthropathy are present with mild bilateral neural foraminal stenosis. C3-C4: A disc osteophyte complex is present which minimally narrows the ventral subarachnoid space. Bilateral facet and uncovertebral joint arthropathy are present with mild bilateral neural foraminal stenosis. C4-C5: A disc eccentric left osteophyte complex is present which minimally narrows the ventral subara chnoid space. Bilateral facet and uncovertebral joint arthropathy are present with moderate bilater al neural foraminal stenosis. C5-C6: A disc osteophyte complex is present with mild spinal canal stenosis. Bilateral facet and unc overtebral joint arthropathy are present with moderate bilateral neural foraminal stenosis. C6-C7: A disc osteophyte complex is present with mild spinal canal stenosis. Bilateral facet and unc overtebral joint arthropathy are present with mild bilateral neural foraminal stenosis. C7-T1: No significant disc pathology. The spinal canal is patent. No neural foraminal stenosis. Other: None. IMPRESSION: 1. No evidence for disc herniation or significant spinal canal stenosis. Spinal cord has normal signa l and morphology. 2. Multilevel disc degeneration with associated osteoarthritic changes with varying degrees of mild s leander canal stenosis and neural foraminal stenosis bilaterally. 3. No evidence of intracranial mass or acute/subacute infarct. 4. Nonspecific white matter changes, likely secondary to small vessel ischemic disease. 5. Small right TMJ joint effusion/synovial cyst.
== END | disposition home or self-care (01) ==
LOC: RADMRIMAIN 11:45
PROVIDERS: ATTEND Family Medicine
DX: M50.33 Other cervical disc degeneration, cervicothoracic region (principal); M47.812 Spondylosis without myelopathy or radiculopathy, cervical region; M48.02 Spinal stenosis, cervical region; M99.71 Connective tissue and disc stenosis of intervertebral foramina of cervical region
CPT/HCPCS: 70551; 72141

== ENCOUNTER → 2023-04-01 | Outpatient (CLI) | payer MEDICARE, OTHER ==
--- NOTE | 2023-04-01 10:58 | US ---
EXAMINATION TYPE: US venous doppler duplex LE LT DATE OF EXAM: 04/01/2023 10:37 AM COMPARISON: 09/09/2019 CLINICAL INDICATION: Female, 67 years old with history of M79.89 LLE; Left leg hx of DVT in 2015 or 2 017 she states. Slight swelling and pain SIDE PERFORMED: Left TECHNIQUE: The lower extremity deep venous system is examined utilizing real time linear array sonog aubree with graded compression, doppler sonography and color-flow sonography. VESSELS IMAGED: Common Femoral Vein Deep Femoral Vein Greater Saphenous Vein * Femoral Vein Popliteal Vein Small Saphenous Vein * Proximal Calf Veins (* superficial vessels) Left Leg: Negative for DVT IMPRESSION: No evidence of deep venous thrombosis.
== END | disposition home or self-care (01) ==
LOC: RADUSWWP 10:01
PROVIDERS: ATTEND Family Medicine
DX: M79.662 Pain in left lower leg (principal); M79.89 Other specified soft tissue disorders; Z86.718 Personal history of other venous thrombosis and embolism

== ENCOUNTER → 2023-04-06 | Outpatient (CLI) | payer MEDICARE, OTHER ==
--- NOTE | 2023-04-07 09:21 | MM ---
Reason for Exam: Screening (asymptomatic). Last screening mammogram was performed 12 month(s) ago. Patient History: Menarche at age 11. First Full-Term at age 15. Hysterectomy at age 51. Postmenopausal. Patient has history of breast feeding. Excisional Biopsy on the Left side. Risk Values: Heidi 5 year model risk: 1.5%. NCI Lifetime model risk: 4.8%. Prior Study Comparison: 02/08/2015 Bilateral Screening Mammogram, [facility]. 12/03/2016 Bilateral Screening Mammogram, [facility]. 11/03/2018 Bilateral Screening Mammogram, [facility]. 01/03/2020 Bilateral Screening Mammogram, [facility]. 02/26/2021 Bilateral Screening Mammogram, [facility]. 03/25/2022 Bilateral MG 3D screening mammo w/cad, [facility]. Tissue Density: The breast tissue is heterogeneously dense. This may lower the sensitivity of mammography. Findings: Analyzed By CAD. There is no suspicious group of microcalcifications or new suspicious mass in either breast. Benign-appearing calcifications. Overall Assessment: Benign, BI-RAD 2 Management: Screening Mammogram of both breasts in 1 year. . Patient should continue monthly self-breast exams. A clinical breast exam by your physician is recommended on an annual basis. This exam should not preclude additional follow-up of suspicious palpable abnormalities. Note on Heidi scores and lifetime risk: 1. A Heidi score greater than 3% is considered moderate risk. If this is the case, consider specialist referral to assess eligibility for a risk reducing agent. 2. If overall lifetime risk for the development of breast cancer is 20% or higher, the patient may qualify for future screening with alternating mammogram and breast MRI. Electronically signed and approved by: Jose Manuel Moura M.D. Radiologis
== END | disposition home or self-care (01) ==
LOC: RADMAMWWP 13:56
PROVIDERS: ATTEND Family Medicine
DX: Z12.31 Encounter for screening mammogram for malignant neoplasm of breast (principal); Z78.0 Asymptomatic menopausal state
CPT/HCPCS: 77063; 77067

== ENCOUNTER → 2023-04-07 | Outpatient (CLI) | payer MEDICARE, OTHER ==
--- NOTE | 2023-04-10 08:18 | CT ---
EXAMINATION TYPE: CT abdomen pelvis wo con CT DLP: 1054 mGycm, Automated exposure control for dose reduction was used. DATE OF EXAM: 04/07/2023 3:52 PM COMPARISON: CT abdomen pelvis with contrast 09/04/2015, MR kidney 09/28/2015 CLINICAL INDICATION:Female, 67 years old with history of R14.0 ABDOMINAL DISTENSION (GASEOUS); abd bl oating TECHNIQUE: Unenhanced axial CT of the abdomen and pelvis. Sagittal and coronal reformats were created on a separate workstation. Contrast used: mL of , (none if empty) Oral contrast used: without Oral Contrast (none if empty) FINDINGS: Exam is limited without contrast. LOWER CHEST: Heart size upper normal. Prominent pericardial fat. No effusion. Lung bases are clear. ABDOMEN LIVER: Unremarkable GALLBLADDER AND BILE DUCTS: The gallbladder is surgically absent. Biliary tree does not appear pathol ogically dilated. PANCREAS: Grossly stable appearance by noncontrast CT; MRI would be most sensitive but no definite ma ss is suggested. SPLEEN: Unremarkable. ADRENAL GLANDS: Stable in appearance. Unchanged 1.2 cm left adrenal nodule previously characterized a s adenoma.. KIDNEYS AND URETERS: No evidence of renal calculi or contour deformity. No hydronephrosis. Stable to slightly smaller vaguely defined nodule at the inferior aspect of the left kidney, measures approxima tely 1.4 cm; this may be exophytic. PELVIS BLADDER: Incompletely distended but grossly unremarkable. REPRODUCTIVE: The uterus appears absent, correlate for hysterectomy. Small soft tissue density on the right, likely normal-sized ovary. Left ovary not clearly identified. ABDOMEN & PELVIS STOMACH AND BOWEL: Postoperative changes of the GE junction may be from fundoplication. Stomach and s mall bowel are nondistended. The appendix is not seen with certainty but there is no inflammatory pr ocess seen in the pericecal region. Mild to moderate stool throughout the colon with no focal acute abnormality demonstrated. Some segments are nondistended and not well assessed. Colonic diverticula are present which do not appear inflamed. PERITONEUM/RETROPERITONEUM: No evidence of pneumoperitoneum or free fluid. VASCULATURE: Mild to moderate atherosclerotic calcifications are present throughout the abdominal aor ta and its branches. No evidence of aortic aneurysm. IVC appears normal caliber. LYMPH NODES: No gross evidence for lymphadenopathy. SOFT TISSUE/ABDOMINAL WALL: Small left and tiny right fat-containing inguinal hernias. Calcified left gluteal granulomata. MUSCULOSKELETAL: Bones appear somewhat osteopenic. Mild/moderate multilevel degenerative changes with degenerative grade 1 anterolisthesis L3 on L4. Mild to moderate bilateral hip arthropathy. IMPRESSION: 1. Limited unenhanced study shows no acute inflammatory or obstructive process in the abdomen or pel vis. 2. Colonic diverticula are present, without signs of inflammation to suggest diverticulitis. 3. Stable small left adrenal nodule (consistent with adenoma), stable to slightly smaller nodule inf erior to the left kidney (uncertain etiology but given the timeframe of stability considered benign), and grossly stable appearance of the pancreas compared to prior studies.
== END | disposition home or self-care (01) ==
LOC: RADCTMAIN 15:31
PROVIDERS: ATTEND Family Medicine
DX: K57.30 Diverticulosis of large intestine without perforation or abscess without bleeding (principal); E27.8 Other specified disorders of adrenal gland; R14.0 Abdominal distension (gaseous)
CPT/HCPCS: 74176

== ENCOUNTER → 2023-06-09 | Outpatient (CLI) | payer MEDICARE, OTHER ==
--- NOTE | 2023-06-09 20:26 | US ---
EXAMINATION TYPE: US venous doppler duplex LE LT DATE OF EXAM: 06/09/2023 6:03 PM COMPARISON: 04/01/2023 CLINICAL INDICATION: Female, 67 years old with history of M79.89 OTHER TISSUE DISORDER; Patient state s leg swelling at calf and ankle. Prior hx of DVT. SIDE PERFORMED: Left TECHNIQUE: The lower extremity deep venous system is examined utilizing real time linear array sonog aubree with graded compression, doppler sonography and color-flow sonography. VESSELS IMAGED: Common Femoral Vein Deep Femoral Vein Greater Saphenous Vein * Femoral Vein Popliteal Vein Small Saphenous Vein * Proximal Calf Veins (* superficial vessels) There is normal flow, compressibility, vascular waveforms. No evidence of thrombus identified. Left Leg: Negative for DVT IMPRESSION: No evidence of left lower extremity DVT.
== END | disposition home or self-care (01) ==
LOC: RADUSWWP 15:55
PROVIDERS: ATTEND Family Medicine
DX: M79.89 Other specified soft tissue disorders (principal)

== ENCOUNTER → 2023-06-09 | Outpatient (CLI) | payer MEDICARE, OTHER ==
[2023-06-09 16:28] VITALS: BP 148/87; PULSE 76; RESP 17; TEMP 98.3
--- NOTE | 2023-06-09 17:44 | P.HPOB ---
History of Present Illness H&P Date: 06/09/23 Chief Complaint: The patient is here for her routine gynecologic exam. This is a 67-year-old -0-0-2 with an LMP of 2006. The patient recently noticed slight vaginal wetness which she does not believe was urine and believes it was slight discharge it, however she has not seen anything in her underwear or when she wipes. She has noticed burning in the vagina and vulva areas. She also has noticed a slight odor. She is status post vaginal hysterectomy for benign reasons. She had a CT scan on 04/07/2023 and this was of the abdomen and pelvis for abdominal symptoms which included bloating. The CT scan did not find any gynecologic issues and no ovarian masses were noted. No acute inflammatory or obstructive process was noted. There was a small left adrenal nodule noted. She also had a benign mammogram on 04/06/2023. Review of Systems The patient has gained 6 pounds over the last year. She denies respiratory, cardiac, or G.I. problems. Past Medical History Past Medical History: COPD, Diabetes Mellitus, Deep Vein Thrombosis (DVT), GERD/Reflux, Hyperlipidemia, Hypertension, Osteoarthritis (OA), Pneumonia, Renal Disease, Thyroid Disorder Additional Past Medical History / Comment(s): DM type II insulin requiring, neuropathy bilateral feet, pt states she is followed by Dr. De La Torre prophyllactically d/t diabetes but does not have kidney disease as yet, DVT L lower extremity, arthritis in biltateral hands/feet and back, chronic back pain, hypothyroid. Past [employer] history: Treated for gonorrhea many years ago and history of genital HSV. History of Any Multi-Drug Resistant Organisms: MRSA Date of last positivie culture/infection: February MDRO Source:: Foot Past Surgical History: Appendectomy, Cholecystectomy, Hernia Repair, Hysterectomy, Orthopedic Surgery, Tonsillectomy Additional Past Surgical History / Comment(s): Lucy fundoplasty, L salpingectomy/oophorectomy as a teen d/t cysts, lysis of abdominal adhesions, EGD, bilateral hands I & Ds, laser eye surgery, multiple left breast biopsies, bilateral carpal tunnel releases, TTT. Colonoscopy(polyps removed) with upper endoscopy 2019. Past Anesthesia/Blood Transfusion Reactions: No Reported Reaction Additional Past Anesthesia/Blood Transfusion Reaction / Comment(s): PT HAD SWELLING OF FACE WITH ANESTHESIA DURING HYSTERECTOMY, BUT NO PROBLEMS SINCE. HAS NEVER RECEIVED BLOOD Past Psychological History: Depression Additional Psychological History / Comment(s): Pt resides alone. She has 2 cats. She is independent. Smoking Status: Former smoker Past Alcohol Use History: None Reported, Abuse, Heavy Additional Past Alcohol Use History / Comment(s): Pt started smoking in 1969 and quit in 1998. She was smoking 1 ppd. Patient states that she is a recovering alcoholic. Patient stated she quit drinking 1993. Past Drug Use History: Marijuana Additional Drug Use History / Comment(s): Marijuana use as a teenager. Nothing recent. - Past Family History Sister(s) Additional Family Medical History / Comment(s): Alcoholic. Father Family Medical History: Congestive Heart Failure (CHF), Coronary Artery Disease (CAD), Diabetes Mellitus, Myocardial Infarction (LA) Additional Family Medical History / Comment(s): heart problems, CABG, at age 81yrs. Mother Family Medical History: Coronary Artery Disease (CAD), Diabetes Mellitus, Osteoarthritis (OA) Additional Family Medical History / Comment(s): Mother committed suicide in 1973. Chemical imbalance in the brain runs on pt's mother's side of family Brother(s) Family Medical History: CVA/TIA Medications and Allergies Home Medications Medication Instructions Recorded Confirmed Type Levothyroxine Sodium [Synthroid] 125 mcg PO DAILY 03/02/14 06/09/23 History Famotidine [Pepcid] 20 mg PO BID 30 Days #60 tablet 09/12/17 06/09/23 Rx Ergocalciferol (Vitamin D2) 50,000 unit PO BEYER 11/03/18 06/09/23 History [Vitamin D2] Insulin Glargine,Hum.rec.anlog 30 unit SQ QAM 11/03/18 06/09/23 History [Lantus Solostar Pen] Aspirin EC [Ecotrin Low Dose] 81 mg PO DAILY 02/21/19 06/09/23 History Dulaglutide [Trulicity] 0.75 mg SQ WEEKLY 01/03/20 06/09/23 History Atorvastatin [Lipitor] 10 mg PO HS 03/25/22 06/09/23 History Pioglitazone [Actos] 15 mg PO DAILY 03/25/22 06/09/23 History Valsartan 320 mg PO DAILY 03/25/22 06/09/23 History calcitrioL [Calcitriol] 0.25 mcg PO WEEKLY 03/25/22 06/09/23 History Allergies Allergy/AdvReac Type Severity Reaction Status Date / Time No Known Allergies Allergy Verified 06/09/23 16:14 Exam Vital Signs Temp Pulse Resp BP Pulse Ox 06/09/23 16:15 98.3 F 76 17 148/87 96 Intake and Output 06/09/23 06/09/23 06/09/23 06:59 14:59 22:59 Other: Weight 97.069 kg Height 5 feet 3 inches, weight 214 pounds, BMI 37.9. This is a well-developed well-nourished heavyset white female who is alert and oriented times 3 in no acute distress. HEENT: Within normal limits. NECK: Supple without mass or thyromegaly. CHEST AND LUNGS: Clear to auscultation. HEART: Regular rate and rhythm. BREASTS: Are without mass or discharge. There is mild generalized bilateral breast tenderness. AXILLARY EXAM: Negative for adenopathy. BACK: Negative for CVA tenderness. ABDOMEN: Soft, nontender, without palpable masses. PELVIC EXAM: External genitalia reveals an hourglass type symmetric nonpigmented skin surrounding the anterior labia majora, perineum and perianal areas. There is a sharp demarcation between the pigmented area outside of the mentioned nonpigmented area. This does not appear inflamed and also does not have the typical lichen sclerosus pallor. There are no focal lesions and no excoriation or ulcerations. Pigmented area is nontender. The vagina appears normal with mild atrophy. There is no unusual discharge or odor noted. There is no evidence of prolapse. Bimanual examination is negative for mass or tenderness. RECTAL EXAM: Rectovaginal exam is negative for mass or tenderness and is negative for occult blood. EXTREMITIES: Nontender. There is no calf tenderness and Homans' sign is negative in the left leg. Patient states she is undergoing an ultrasound of the left leg for swelling as ordered by her PCP. IMPRESSION: 1. 67-year-old menopausal female with nonpigmented skin involving the labia majora, perineum and perianal areas. This is unchanged from the 12/03/2016 H&P seems most consistent with vitiligo and not consistent with lichen sclerosus of the vulva. 2. History of previous vaginal hysterectomy for benign reasons. 3. Recent vulvar and vaginal burning with slight discharge. No discharge or odor is noted on exam today. PLAN: 1. Pap smears have been discontinued 2. Self breast awareness was discussed with the patient. We have also discussed symptoms associated with inflammatory breast cancer. 3. Screening mammogram was done on 04/06/2023 and was benign. This will be repeated after 1 year 4. Affirm vaginitis panel was obtained from the vagina. If this is negative for infection, will consider using a cream such as Kenalog 0.1% cream to the vulva as needed for vulvar burning. She thinks this may have been related to overuse of soap in the area recently. She was advised to not over washing and to use less soap to this area. If irritation or symptoms persist, will consider biopsying the area. I have again recommended that she discuss the possibility of vitiligo with a ward nurse. 5. Osteoporosis prevention was discussed. I have stressed the importance of adequate calcium, vitamin D and regular exercise. Recommended amounts of calcium and vitamin D were also discussed. He had a normal bone density test done on 11/03/2018. She states she recently had this repeated as ordered by her drum worker, Dr. Ulloa. This was done at [facility]. She will try to have a copy of the report sent to me. 6. She is scheduled for a colonoscopy on 07/06/2023 and this will be done with an upper endoscopy 7. She was advised to return in one year for her annual well woman exam and as needed.
== END ==
LOC: WWCWWP 15:52
PROVIDERS: ATTEND Obstetrics & Gynecology
DX: Z78.0 Asymptomatic menopausal state (principal); Z90.710 Acquired absence of both cervix and uterus; Z90.722 Acquired absence of ovaries, bilateral; Z87.891 Personal history of nicotine dependence
CPT/HCPCS: 87480; 87510; 87660

== ENCOUNTER → 2023-11-05 | Outpatient (CLI) | payer MEDICARE, OTHER ==
--- NOTE | 2023-11-05 18:33 | MR ---
EXAMINATION TYPE: MR brain wo con DATE OF EXAM: 11/05/2023 5:02 PM CLINICAL INDICATION: Female, 68 years old with history of H93.13 TINNITUS, BILATERAL R51.9 Headache; PHH, Headaches and Ringing Noise with bi-lat Hearing Loss COMPARISON: 10/26/2021. TECHNIQUE: Multi planar, multi sequence imaging was performed through the brain including: T1, T2, In version recovery, Diffusion weighted imaging, and gradient echo imaging. No gadolinium was given. FINDINGS: Anterior falx high T1 signal probable falx lipoma measuring 4 mm. Mild cerebral atrophy wit h proportional dilation of ventricular system. Scattered foci of high T2 signal intensity are seen within the periventricular white matter. Midline structures show no abnormality. Diffusion-weighted i maging shows no evidence of restricted diffusion. The susceptibility weighted images do not reveal an y evidence for micro-hemorrhage. The bone marrow signal is within normal limits. Paranasal sinuses and mastoid air cells: No significant paranasal sinus disease. Visualized orbits: Bilateral aphakia IMPRESSION: 1. No evidence of intracranial mass or acute/subacute infarct. 2. Nonspecific white matter changes, likely secondary to small vessel ischemic disease. [facility], , 11/05/2023 6:30 PM
== END | disposition home or self-care (01) ==
LOC: RADMRIMAIN 16:04
PROVIDERS: ATTEND Family Medicine
DX: H93.13 Tinnitus, bilateral
CPT/HCPCS: 70551

== ENCOUNTER → 2024-03-12 | Outpatient (CLI) | payer MEDICARE, OTHER ==
--- NOTE | 2024-03-12 13:23 | MR ---
EXAMINATION TYPE: MR cervical spine wo con DATE OF EXAM: 03/12/2024 1:13 PM COMPARISON: 10/26/2021 CLINICAL INDICATION: Female, 68 years old with history of R51.9 NEW ONSET HEADACHE M50.30 DEG CERVICA L DISC, New onset headaches, neck pain, leg numbness IV Contrast: cc (None if empty) TECHNIQUE: Multiplanar, multisequence images of the cervical spine were acquired without contrast. Findings: The craniovertebral junction relationship some prevertebral soft tissues are normal. The cervical vertebral segments are normal in height and alignment is no fracture or subluxation. The cervical cord is normal in size and signal intensity and there is no cervical stenosis. The C2-3, C3-4, C4-5 discs spaces are well preserved in height. There is mild to moderate disc space narrowing and spondylosis at the C5-6 and C6-7 levels indicating mild to moderate degenerative disc disease. There is near fusion of the C7/T1 disc space. There is a dvanced degenerative disc disease at the T1/T2 level where there is moderate disc space narrowing, hy pertrophic spurring, circumferential disc bulge and discogenic endplate changes. Compared to the prio r study, there has been no significant interval changes and degenerative disc disease. There is no fo kaden disc protrusion or herniation. There is multilevel neural foraminal stenosis as follows; severe at the C3-4 on the left, moderate at C4-5 bilaterally, moderate at C5-6 bilaterally, and severe at C6-7 on the left. IMPRESSION: 1. Multilevel degenerative disease as described above. There is been no significant interval change. There is no cervical disc herniation. 2. Normal cervical cord and no cervical stenosis. 3. Multilevel neural foraminal stenosis as described above. [facility], , 03/12/2024 1:20 PM
--- NOTE | 2024-03-12 13:53 | XR ---
Lumbar spine HISTORY: Back pain COMPARISON: 01/12/2018. TECHNIQUE: 5 views of the lumbar spine were obtained. FINDINGS: The lumbar vertebral segments are normal in height fracture. There is a grade 1 anterolisthesis of L3 on L4 which is stable. There has been moderate progression in the degenerative disc disease at the L4-5 level which is now i n degree. There is vacuum phenomena, moderate disc space narrowing and spondylosis at this level. There is stable mild degenerative disease at the L2-3 and L3-4 levels where there is mild disc space narrowing and spondylosis. The L5-S1 disc space is fairly well-maintained. There is osteoarthritic change of facet joints throughout the lower lumbar spine. Visualized sacrum and SI joints are normal. IMPRESSION: 1. Stable grade 1 anterolisthesis of L3 on L4. 2. Multilevel degenerative disease. There has been interval worsening at the L4-5 level where there i s now moderate degenerative disc disease as described above. 3. Osteoarthritic changes of facet joints in the mid lower lumbar spine. [facility], , 03/12/2024 1:50 PM
--- NOTE | 2024-03-12 13:54 | XR ---
Thoracic spine HISTORY: Back pain COMPARISON: None TECHNIQUE: 3 views of the thoracic spine were obtained. FINDINGS: The thoracic vertebral segments are normal in height and alignment and there is no fracture or sublux ation There is moderate degenerative disease in the mid to lower thoracic spine is moderate disc space narr owing and spondylosis. The paraspinal soft tissues are unremarkable. IMPRESSION: IMPRESSION: 1. No thoracic spine fracture or malalignment. 2. Moderate degenerative disease in the mid to lower thoracic spine at multiple levels. [facility], Workstation: [facility], 03/12/2024 1:52 PM
== END | disposition home or self-care (01) ==
LOC: RADMRIMAIN 12:13
PROVIDERS: ATTEND Family Medicine
DX: M50.30 Other cervical disc degeneration, unspecified cervical region (principal); M48.02 Spinal stenosis, cervical region; R51.9 Headache, unspecified; M43.16 Spondylolisthesis, lumbar region; M51.360 Other intervertebral disc degeneration, lumbar region with discogenic back pain only; M51.34 Other intervertebral disc degeneration, thoracic region
CPT/HCPCS: 72070; 72110; 72141

== ENCOUNTER → 2024-05-27 | Outpatient (CLI) | payer MEDICARE, OTHER ==
--- NOTE | 2024-05-29 20:10 | CT ---
EXAMINATION TYPE: CT iac wo con DATE OF EXAM: 05/27/2024 5:19 PM COMPARISON: 10/30/2017 CLINICAL INDICATION: Female, 68 years old with history of H92.09 OTALGIA, UNSPECIFIED EAR, Pain in ri ght ear. TECHNIQUE: Contrast used: mL of , (none if empty) Oral contrast used: (none if empty) Axial images at 1 mm thick sections. Reconstructed images in the coronal and sagittal planes. FINDINGS: Mastoid air cells appear underpneumatized. No suspicious fluid collections to suggest acute mastoidit is. Some debris is within the left extraocular canal. Right extraocular canal has minimal debris. Tym panic membranes appear normal. Incus and malleus have normal orientation. Semicircular canals are nor mal. Cochlea are normal internal auditory canals appear normal without expansion or erosion. The adne xa appear clear. Temporomandibular junctions are normal. No acute fractures or dislocations evident. Maxillary spine a ppears unremarkable. Nasal bones appear intact where visualized. Left septal deviation is noted. IMPRESSION: 1. NO SUSPICIOUS ABNORMALITY, TO ACCOUNT FOR RIGHT EAR PAIN [facility], , 05/29/2024 8:07 PM
== END | disposition home or self-care (01) ==
LOC: RADCTMAIN 16:52
PROVIDERS: ATTEND Family Medicine
DX: H92.01 Otalgia, right ear (principal)
CPT/HCPCS: 70480